=== PATIENT | female | born 1955 | race Hispanic/Latino ===

== ENCOUNTER 2016-11-25 16:01 | Emergency (ER) | payer OTHER, MEDICAID ==
[2016-11-25 16:01] VITALS: BMI 42.3
[2016-11-25 16:13] VITALS: TEMP 97.9; O2SAT 96
[2016-11-25] MEDS ORDERED: Sodium Chloride 0.9% 500 ML IV STA (16:46)
[2016-11-25] MEDS ORDERED: Morphine 2 mg/ml ISec IVP STA (16:49)
--- NOTE | 2016-11-25 16:53 | ED PDOC ---
Arrival/HPI - General Historian: Patient - History of Present Illness Time/Duration: Other (2 days) Context: Home - General Chief Complaint: Abdominal Pain Time Seen by Provider: 11/25/16 16:37 - History of Present Illness Narrative History of Present Illness (Text): 11/25/16 16:50 This 61 yo female with pmh htn, hyperlipedemia, hypothyroidism, multiple TIAs, brain aneurysm, seizures, pyelonephritis, renal stones, presents to this ED c/o urinary frequency, and flank pain x 2 days. Patient denies fever, sob, cp, n/v , hematuria, vaginal discharge, dizziness, or abnormal gait. (Yissel Kat) Past Medical History - Provider Review Nursing Documentation Reviewed: Yes - Infectious Disease Hx of Infectious Diseases: None - Tetanus Immunization Tetanus Immunization: Unknown - Cardiac Hx Hypertension: Yes Hx Pacemaker: No - Pulmonary Hx Respiratory Disorders: No - Neurological HX Cerebrovascular Accident: Yes Hx Paralysis: No Other/Comment: Brain aneurysm. Epilepsy - HEENT Hx HEENT Disorder: No - Renal Hx Renal Disorder: No - Endocrine/Metabolic Hx Endocrine Disorders: Yes Hx Hypothyroidism: Yes - Hematological/Oncological Hx Blood Transfusions: No - Integumentary Hx Dermatological Disorder: No - Musculoskeletal/Rheumatological Hx Musculoskeletal Disorders: Yes - Gastrointestinal Hx Gastrointestinal Disorders: No - Genitourinary/Gynecological Hx Genitourinary Disorders: No - Psychiatric Hx Emotional Abuse: No Hx Physical Abuse: No Hx Substance Use: No - Surgical History Hx Cholecystectomy: Yes Hx Tonsillectomy: Yes Other/Comment: "cean up left neck vein". Brain Sx for aneurysm - Anesthesia Hx Anesthesia Reactions: No Hx Malignant Hyperthermia: No - Suicidal Assessment Feels Threatened In Home Enviroment: No Family/Social History - Physician Review Nursing Documentation Reviewed: Yes Family/Social History: No Known Family HX Smoking Status: Former Smoker Hx Alcohol Use: No Hx Substance Use: No Hx Substance Use Treatment: No Allergies/Home Meds Allergies/Adverse Reactions: Allergies No Known Allergies Allergy (Verified 11/26/16 11:33) Home Medications: Home Meds Medication Instructions Recorded Confirmed Clopidogrel [Plavix] 75 mg PO DAILY 09/23/12 11/26/16 Donepezil HCl [Aricept] 10 mg PO DAILY 09/10/14 11/26/16 Simvastatin 1 tab PO HS 09/12/14 11/26/16 Escitalopram Oxalate [Escitalopram] 10 mg PO DAILY 02/13/16 11/26/16 Esomeprazole Magnesium [Nexium] 40 mg PO DAILY 02/13/16 11/26/16 Furosemide [Lasix] 40 mg PO DAILY PRN 02/13/16 11/26/16 Gabapentin [Neurontin] 300 mg PO BID 02/13/16 11/26/16 Levothyroxine [Synthroid] 100 mcg PO DAILY 02/13/16 11/26/16 Metoprolol Tartrate 50 mg PO DAILY 02/13/16 11/26/16 Phenytoin Sodium Extended 2 tab PO BID 02/13/16 11/26/16 [Phenytoin Sodium Extended] Losartan [Cozaar] 100 mg PO DAILY 11/26/16 11/26/16 Potassium Chloride [Klor-Con 10] 10 meq PO DAILY 11/27/16 11/27/16 Review of Systems - Review of Systems Constitutional: Normal. absent: Fatigue, Weight Change, Fevers Eyes: Normal ENT: Normal Respiratory: Normal Cardiovascular: Normal Gastrointestinal: Other (Flank pain). absent: Nausea, Vomiting Genitourinary Female: Frequency. absent: Dysuria, Hematuria, Urine Output Changes, Vaginal Bleeding, Vaginal Discharge Musculoskeletal: Normal. absent: Arthralgias, Back Pain, Neck Pain, Joint Swelling Skin: Normal. absent: Rash, Pruritis Neurological: Normal. absent: Headache, Dizziness, Focal Weakness, Gait Changes , Speech Changes, Facial Droop, Disequilibrium, Seizure Endocrine: Normal Hemo/Lymphatic: Normal Psychiatric: Normal Physical Exam Temperature: Afebrile Blood Pressure: Normal Pulse: Regular Respiratory Rate: Normal Appearance: Positive for: Well-Appearing, Non-Toxic, Comfortable Pain Distress: None Mental Status: Positive for: Alert and Oriented X 3 - Systems Exam Head: Present: Atraumatic, Normocephalic Pupils: Present: PERRL Extroacular Muscles: Present: EOMI Conjunctiva: Present: Normal Mouth: Present: Moist Mucous Membranes Neck: Present: Normal Range of Motion. No: Meningeal Signs Respiratory/Chest: Present: Clear to Auscultation, Good Air Exchange. No: Respiratory Distress, Accessory Muscle Use Cardiovascular: Present: Regular Rate and Rhythm, Normal S1, S2. No: Murmurs Abdomen: Present: Tenderness (Mild b/l flank tenderness), Normal Bowel Sounds. No: Distention, Peritoneal Signs, Rebound, Guarding Back: Present: Normal Inspection. No: CVA Tenderness, Midline Tenderness, Paraspinal Tenderness, Pain with Leg Raise Upper Extremity: Present: Normal Inspection, Normal ROM, NORMAL PULSES, Neurovascularly Intact, Capillary Refill < 2s. No: Cyanosis, Edema Lower Extremity: Present: Normal Inspection, NORMAL PULSES, Normal ROM, Neurovascularly Intact, Capillary Refill < 2 s. No: Edema, CALF TENDERNESS Neurological: Present: GCS=15, CN II-XII Intact, Speech Normal Skin: Present: Warm, Dry, Normal Color. No: Rashes Psychiatric: Present: Alert, Oriented x 3, Normal Insight, Normal Concentration Vital Signs Temp Pulse Resp BP Pulse Ox 11/25/16 20:00 56 L 18 130/70 96 11/25/16 18:01 59 L 18 141/79 96 11/25/16 16:12 97.9 F 56 L 17 143/89 96 Medical Decision Making Re-evaluation Time: 21:41 Reassessment Condition: Re-examined, Improved - Lab Interpretations I have reviewed the lab results: Yes Interpretation: No clinic. lab abnormalty ED Course and Treatment: I was available for consultation during PA evaluation. The chart was reviewed by me, and I agree with disposition. The documented history was done by the physician property portfolio officer. The documented physical exam was done by the physician property portfolio officer. The documented procedures were done by the physician property portfolio officer. ( Tre Jimenez) 11/25/16 21:40 I spoke with rn surgical regarding CT scan which demonstrate a moderate diverticulitis, with normal WBC. She stated patient could be discharge with po antibiotic unless patient has intractable pain. Patient does not want to stay in the hospital. Pain is control. Patient is wishing to be discharge home. Patient was explained about side effect of medication , not only but including tendinitis and tendon rupture (Yissel Kat) - Lab Interpretations Microbiology Results: Microbiology Results 11/25/16 18:27 Urine Urine Culture - Preliminary Gram Positive Cocci Lab Results: 11/25/16 18:15 11/25/16 20:40 Lab Results 11/25/16 20:40: Sodium 143, Potassium 3.9, Chloride 103, Carbon Dioxide 30, Anion Gap 14, BUN 11, Creatinine 0.7, Est GFR ( Amer) > 60, Est GFR (Non- Af Amer) > 60, Random Glucose 88, Calcium 9.4, Total Bilirubin 0.5, AST 25, ALT 35, Alkaline Phosphatase 134 H, Total Protein 7.5, Albumin 3.9, Globulin 3.6, Albumin/Globulin Ratio 1.1, Lipase 228 11/25/16 18:27: Urine Color Yellow, Urine Appearance Sl cloudy, Urine pH 6.0, Ur Specific [place] 1.025, Urine Protein Negative, Urine Glucose (UA) Negative, Urine Ketones Negative, Urine Blood Moderate H, Urine Nitrate Negative, Urine Bilirubin Negative, Urine Urobilinogen 0.2, Ur Leukocyte Esterase Negative, Urine RBC 5 - 10, Urine WBC 0 - 2, Ur Epithelial Cells 4 - 5, Urine Bacteria Few 11/25/16 18:15: WBC 7.5 D, RBC 4.13, Hgb 12.9, Hct 38.8, MCV 93.9, MCH 31.2, MCHC 33.2, RDW 13.3, Plt Count 207, MPV 10.7, Gran % 57.3, Lymph % (Auto) 33.2, [place] % (Auto) 6.2 H, Eos % (Auto) 3.0, Baso % (Auto) 0.3, Gran # 4.28, Lymph # 2.5, [place] # 0.5, Eos # 0.2, Baso # 0.02 - RAD Interpretation Narrative RAD Interpretations (Text): 11/25/16 21:08 [facility] FINDINGS: Lower thorax: Lung bases show no pulmonary infiltration or lobar pneumonia. The cardiac chambers are mildly enlarged without pericardial thickening or effusion. ABDOMEN: Liver: Unremarkable liver is normal in attenuation without lesions. Gallbladder and bile ducts: There has been a cholecystectomy. Pancreas: Unremarkable pancreas, no lesions, surrounding fluid or inflammation. No ductal dilation. Spleen: Unremarkable. No splenomegaly. Adrenals: Left adrenal gland is normal. Right adrenal circumscribed hypodense mass with density characteristics and morphology consistent with lipid rich adenoma measuring approximately 2.7 cm. Kidneys and ureters: Unremarkable. No obstructing stones. No hydronephrosis. Stomach and bowel: The stomach is normal without wall thickening or mucosal edema. There is a segment of wall thickening at the junction of the sigmoid and descending colon, consistent with moderate acute diverticulitis. There is moderate pericolonic inflammatory stranding. Diverticulosis also seen in the remainder of the large bowel. Appendix: No findings to suggest acute appendicitis. PELVIS: Bladder: Unremarkable. No stones. Reproductive: Unremarkable as visualized. ABDOMEN and PELVIS: Intraperitoneal space: Unremarkable. No free air. No significant fluid collection. Bones/joints: There is severe intervertebral disc height loss and adjacent sclerosis associated with L1-L2. The facet joints demonstrate moderate degenerative narrowing and sclerosis, most pronounced distal lumbar spine. No acute fracture. No dislocation. Soft tissues: Unremarkable. Vasculature: The aorta demonstrates moderate atherosclerotic calcification. No abdominal aortic aneurysm. Lymph nodes: Unremarkable. No enlarged lymph nodes. IMPRESSION: Acute moderate sigmoid diverticulitis without perforation, or abscess formation. Diverticulosis also seen. Appendix is not definitively visualized. No obstructive uropathy or signs of pyelonephritis. Lipid rich adenoma of the right adrenal gland is seen. Post cholecystectomy. Degenerative changes of the spine. Thank you for allowing us to participate in the care of your patient. Dictated and Authenticated by: Jovanny Hollins MD 11/25/2016 8:21 PM Eastern Time ([place] & [place] (Yissel Kat) Radiology Orders: 11/25/16 16:46 ABD & PELVIS W/O PO OR IV CONT [CT] Stat - Medication Orders Current Medication Orders: Discontinued Medications Famotidine (Pepcid) 40 mg PO STAT STA Stop: 11/25/16 21:38 Last Admin: 11/25/16 21:21 Dose: 40 mg Sodium Chloride (Sodium Chloride 0.9%) 500 mls @ 1,000 mls/hr IV .Q30M STA Stop: 11/25/16 17:15 Last Admin: 11/26/16 00:33 Dose: Levofloxacin (Levaquin) 750 mg PO STAT STA Stop: 11/25/16 21:26 Last Admin: 11/25/16 21:21 Dose: 750 mg Metronidazole (Flagyl) 500 mg PO STAT STA PRN Reason: Protocol Stop: 11/25/16 21:26 Last Admin: 11/25/16 21:21 Dose: 500 mg Morphine Sulfate (Morphine) 2 mg IM STAT STA Stop: 11/25/16 21:09 Last Admin: 11/25/16 21:21 Dose: 2 mg Ondansetron HCl (Zofran Odt) 4 mg PO STAT STA Stop: 11/25/16 21:09 Last Admin: 11/25/16 21:20 Dose: 4 mg Disposition/Present on Arrival - Present on Arrival Any Indicators Present on Arrival: No History of DVT/PE: No History of Uncontrolled Diabetes: No Urinary Catheter: No History of Decub. Ulcer: No History Surgical Site Infection Following: None - Disposition Have Diagnosis and Disposition been Completed?: Yes Disposition Time: 21:40 Patient Plan: Discharge - Disposition Diagnosis: Diverticulitis of sigmoid colon, Abdominal pain Disposition: HOME/ ROUTINE Patient Problems: Current Active Problems Problem Status Onset Diverticulitis of sigmoid colon Acute Condition: GOOD Discharge Instructions (ExitCare): Diverticulitis (ED) Additional Instructions: Call private doctor office in 1-2 days. Take medication as instructed. Return to emergency if symptoms worsen. Referrals: Janell Bell MD [Primary Care Provider] - Follow up with primary
[2016-11-25 18:06] VITALS: RESP 18
[2016-11-25 18:19] LABS: ADD MANUAL DIFF? NO
[2016-11-25 18:23] LABS: BASO # 0.02 K/mm3 (0.0-2.0); BASO % 0.3 % (0.0-3.0); EOS # 0.2 (0.0-0.7); GRAN # 4.28 (1.4-6.5); GRAN % 57.3 % (50.0-68.0); HEMATOCRIT 38.8 % (36.0-48.0); LYMPH # 2.5 (1.2-3.4); LYMPH % 33.2 % (22.0-35.0); MEAN CELL VOLUME 93.9 fL (80.0-105.0); MEAN CORPUSCULAR HEMOGLOBIN 31.2 pg (25.0-35.0); MEAN CORPUSCULAR HGB CONC 33.2 g/dl (31.0-37.0); MEAN PLATELET VOLUME 10.7 fl (7.0-11.0); MONO # 0.5 (0.1-0.6); MONO % 6.2 % (1.0-6.0); PLATELET COUNT 207 10^3/uL (120.0-450.0); RED CELL DISTRIBUTION WIDTH 13.3 % (11.5-14.5); WHITE BLOOD COUNT 7.5 10^3/ul (4.5-11.0)
[2016-11-25 18:33] LABS: URINE BILIRUBIN NEGATIVE (NEGATIVE); URINE BLOOD MODERATE (NEGATIVE); URINE GLUCOSE (UA) NEGATIVE (NEGATIVE); URINE KETONE NEGATIVE (NEGATIVE); URINE LEUKOCYTE ESTERASE NEGATIVE Leu/uL (NEGATIVE); URINE PROTEIN NEGATIVE mg/dL (<30 mg/dL); URINE UROBILINOGEN 0.2 E.U./dL (<1 E.U./dL)
[2016-11-25 18:39] LABS: URINE APPEARANCE SL CLOUDY (CLEAR); URINE COLOR YELLOW (YELLOW)
[2016-11-25 18:41] LABS: URINE BACTERIA FEW (NEG); URINE WBC 0 - 2 /hpf (0-6)
[2016-11-25] MEDS ORDERED: Morphine 2 mg/ml ISec IM STA (21:08)
[2016-11-25 21:09] LABS: ALB/GLOB RATIO 1.1 (1.1-1.8); ALKALINE PHOSPHATASE 134 U/L (38-133); ALT/SGPT 35 U/L (7-56); AST/SGOT 25 U/L (15-39); BILIRUBIN,TOTAL 0.5 mg/dL (0.2-1.3); BLOOD UREA NITROGEN 11 mg/dL (7-21); CALCIUM 9.4 mg/dL (8.4-10.5); CARBON DIOXIDE 30 mmol/L (21-33); CHLORIDE 103 mmol/L (98-107); GFR AFRICAN-AMERICAN > 60; GLUCOSE,RANDOM 88 mg/dL (70-110); LIPASE 228 U/L (23-300); POTASSIUM 3.9 mmol/L (3.6-5.0); SODIUM 143 mmol/L (132-148); TOTAL PROTEIN 7.5 g/dL (5.8-8.3)
[2016-11-25] MEDS ORDERED: levoFLOXacin 750 MG TAB PO STA (21:25)
[2016-11-26 00:32] VITALS: BP 130/70; PULSE 56
--- NOTE | 2016-11-26 07:26 | CT ---
PROCEDURE: CT Abdomen and Pelvis without intravenous contrast HISTORY: flank pain r/o pyelo COMPARISON: 11/15/2016 TECHNIQUE: CT scan of the abdomen and pelvis was performed without administration of oral or intravenous contrast. Coronal and sagittal reformatted images were obtained. Radiation dose: Total exam DLP = 1294.12 mGy-cm. This CT exam was performed using one or more of the following dose reduction techniques: Automated exposure control, adjustment of the mA and/or kV according to patient size, and/or use of iterative reconstruction technique. FINDINGS: LOWER THORAX: There is dependent atelectasis in the lungs. LIVER: The liver is enlarged. No intrahepatic biliary ductal dilatation. GALLBLADDER AND BILE DUCTS: Surgically absent. PANCREAS: The pancreas is normal in size without calcifications or ductal lesion. SPLEEN: The spleen is normal in size. ADRENALS: Both adrenal glands are normal in size. There is a 2.8 cm fat containing mass in the right adrenal gland which may represent lipid rich adenoma or myelolipoma. KIDNEYS AND URETERS: Both kidneys are normal in size without nephrolithiasis. No hydronephrosis. VASCULATURE: No aortic aneurysm. BOWEL: The small bowel loops are normal in caliber. There is left colonic diverticulosis and segmental mural thickening in the sigmoid colon with mild pericolonic inflammatory changes. No evidence of micro perforation or abscess. APPENDIX: No inflammatory changes in the right lower quadrant. PERITONEUM: No free fluid. No free air. LYMPH NODES: No enlarged lymph nodes. BLADDER: Decompressed. REPRODUCTIVE: Unremarkable. BONES: No acute fracture. There are advanced multilevel degenerative changes in the spine. OTHER FINDINGS: None. IMPRESSION: Acute sigmoid diverticulitis. No perforation or abscess. Stable lipid rich adenoma/ myelolipoma in the right adrenal gland. A preliminary report was provided by [employer].
== END 2016-11-25 21:30 | disposition home or self-care (01) ==
LOC: ED 16:01
DX: K57.32 Diverticulitis of large intestine without perforation or abscess without bleeding (principal); I10 Essential (primary) hypertension; Z86.73 Personal history of transient ischemic attack (TIA), and cerebral infarction without residual deficits; Z87.891 Personal history of nicotine dependence
CPT/HCPCS: 74176; 80053; 81001; 83690; 85025; 87086; 87181; 96372; 99283; J2270

== ENCOUNTER 2016-11-26 11:23 | Inpatient (IN) | payer OTHER, MEDICAID ==
[2016-11-26 11:23] VITALS: BMI 42.3
[2016-11-26] MEDS ORDERED: Sodium Chloride 0.9% 1,000 ML IV STA (11:59)
[2016-11-26] MEDS ORDERED: Ciprofloxacin 400mg/200ml D5W 400 MG/200 ML BAG IVPB STA (12:00)
[2016-11-26] MEDS ORDERED: metroNIDAZOLE IV 500 mg/100 ml 500 MG/100 ML BAG IVPB STA (12:00)
--- NOTE | 2016-11-26 12:08 | ED PDOC ---
Arrival/HPI - General Chief Complaint: Abdominal Pain Time Seen by Provider: 11/26/16 11:36 Historian: Patient - History of Present Illness Narrative History of Present Illness (Text): 11/26/16 12:06 61 year old female whose past medical history includes hypertension, hypercholesterolemia, hypothyroidisim, TIA, seizures, brain aneurysm, pyelonephritis, and diverticulitis presents to the emergency department with worsening abdominal pain since last night. Pain is lower but mostly on left side. It feel achy in nature and radiates to her back at times. Patient was seen here in the ED yesterday for same complaint, diagnosed with diverticulitis , but states she was not able to fill any prescriptions overnight and the pain worsened. Denies other complaints. No fever or bloody stool. PMD: Dr. Bell GI: Dr. Toth Symptom Onset: Gradual Symptom Course: Unchanged Modifying Factors (Text): None Associated Symptoms (Text): None Past Medical History - Provider Review Nursing Documentation Reviewed: Yes - Infectious Disease Hx of Infectious Diseases: None - Tetanus Immunization Tetanus Immunization: Unknown - Cardiac Hx Hypertension: Yes Hx Pacemaker: No - Pulmonary Hx Respiratory Disorders: No - Neurological HX Cerebrovascular Accident: Yes Hx Paralysis: No Other/Comment: Brain aneurysm. Epilepsy - HEENT Hx HEENT Disorder: No - Renal Hx Renal Disorder: No - Endocrine/Metabolic Hx Endocrine Disorders: Yes Hx Hypothyroidism: Yes - Hematological/Oncological Hx Blood Transfusions: No - Integumentary Hx Dermatological Disorder: No - Musculoskeletal/Rheumatological Hx Musculoskeletal Disorders: Yes - Gastrointestinal Hx Gastrointestinal Disorders: No - Genitourinary/Gynecological Hx Genitourinary Disorders: No - Psychiatric Hx Emotional Abuse: No Hx Physical Abuse: No Hx Substance Use: No - Surgical History Hx Cholecystectomy: Yes Hx Tonsillectomy: Yes Other/Comment: Brain Sx for aneurysm - Anesthesia Hx Anesthesia Reactions: No Hx Malignant Hyperthermia: No - Suicidal Assessment Feels Threatened In Home Enviroment: No Family/Social History - Physician Review Nursing Documentation Reviewed: Yes Family/Social History: Unknown Family HX Smoking Status: Former Smoker Hx Alcohol Use: No Hx Substance Use: No Hx Substance Use Treatment: No Allergies/Home Meds Allergies/Adverse Reactions: Allergies No Known Allergies Allergy (Verified 11/26/16 11:33) Home Medications: Home Meds Medication Instructions Recorded Confirmed Clopidogrel [Plavix] 75 mg PO DAILY 09/23/12 11/26/16 Donepezil HCl [Aricept] 10 mg PO DAILY 09/10/14 11/26/16 Simvastatin 1 tab PO HS 09/12/14 11/26/16 Escitalopram Oxalate [Escitalopram] 10 mg PO DAILY 02/13/16 11/26/16 Esomeprazole Magnesium [Nexium] 40 mg PO DAILY 02/13/16 11/26/16 Furosemide [Lasix] 40 mg PO DAILY PRN 02/13/16 11/26/16 Gabapentin [Neurontin] 300 mg PO BID 02/13/16 11/26/16 Levothyroxine [Synthroid] 100 mcg PO DAILY 02/13/16 11/26/16 Metoprolol Tartrate 50 mg PO DAILY 02/13/16 11/26/16 Phenytoin Sodium Extended 2 tab PO BID 02/13/16 11/26/16 [Phenytoin Sodium Extended] Losartan [Cozaar] 100 mg PO DAILY 11/26/16 11/26/16 Review of Systems - Physician Review All systems were reviewed & negative as marked: Yes - Review of Systems Eyes: absent: Vision Changes Respiratory: absent: SOB Cardiovascular: absent: Chest Pain Gastrointestinal: Abdominal Pain. absent: Hematochezia Genitourinary Female: absent: Dysuria, Hematuria Physical Exam Vital Signs Reviewed: Yes Vital Signs Temp Pulse Resp BP Pulse Ox 11/26/16 12:31 64 18 135/68 95 11/26/16 11:41 98.0 F 65 16 137/71 95 Temperature: Afebrile Blood Pressure: Normal Pulse: Regular Respiratory Rate: Normal Appearance: Positive for: Well-Appearing, Non-Toxic, Uncomfortable Pain Distress: Mild Mental Status: Positive for: Alert and Oriented X 3 - Systems Exam Head: Present: Atraumatic, Normocephalic Pupils: Present: PERRL Extroacular Muscles: Present: EOMI Conjunctiva: Present: Normal Mouth: Present: Moist Mucous Membranes Neck: Present: Normal Range of Motion Respiratory/Chest: Present: Clear to Auscultation, Good Air Exchange. No: Respiratory Distress, Accessory Muscle Use Cardiovascular: Present: Regular Rate and Rhythm, Normal S1, S2. No: Murmurs Abdomen: Present: Tenderness (Left sided tenderness ), Normal Bowel Sounds, Guarding. No: Distention, Peritoneal Signs, Rebound Back: Present: Normal Inspection Upper Extremity: Present: Normal Inspection. No: Cyanosis, Edema Lower Extremity: Present: Normal Inspection. No: Edema Neurological: Present: GCS=15, CN II-XII Intact, Speech Normal Skin: Present: Warm, Dry, Normal Color. No: Rashes Psychiatric: Present: Alert, Oriented x 3, Normal Insight, Normal Concentration Medical Decision Making ED Course and Treatment: Impression: 61 year old female whose past medical history includes hypertension , hypercholesterolemia, hypothyroidisim, TIA, seizures, brain aneurysm, pyelonephritis, and diverticulitis presents to the emergency department with worsening abdominal pain since last night. Differential Diagnosis included but are not limited to: Diverticulitis Plan: -- CT already completed yesterday which showed Diverticulitis -- Cipro, Flagyl -- Morphine -- Labs -- Admission Prior Visits: Notes and results from previous visits were reviewed. Patient last seen in the ED on 11/25/16 for abdominal pain and discharged with Cipro and Flagyl. CT Abdomen/Pelvis 11/25/2016 8:21 PM Eastern Time ([place] & [place]) Dictated and Authenticated by: Jovanny Hollins MD IMPRESSION: Acute moderate sigmoid diverticulitis without perforation, or abscess formation. Diverticulosis also seen. Appendix is not definitively visualized. No obstructive uropathy or signs of pyelonephritis. Lipid rich adenoma of the right adrenal gland is seen. Post cholecystectomy. Degenerative changes of the spine. Progress Notes: Patient was a difficult IV access but we were able to get a line on the left arm. Morphine 4mg IM was given via IM while IV line was attempted.Case was discussed with CHRISTOPHER Tobin who states to admit to Dr. Hannah. - Lab Interpretations Lab Results: 11/26/16 12:30 11/26/16 13:05 Lab Results 11/26/16 13:05: Sodium 141, Chloride 103, Potassium 4.4, Carbon Dioxide 29, Anion Gap 13, BUN 12, Creatinine 0.8, Est GFR ( Amer) > 60, Est GFR (Non- Af Amer) > 60, Random Glucose 98, Calcium 9.5, Total Bilirubin 0.4, AST 28, ALT 30, Alkaline Phosphatase 127, Total Protein 7.9, Albumin 4.1, Globulin 3.8, Albumin/Globulin Ratio 1.1, Lipase 284 11/26/16 12:30: pO2 211 H, VBG pH 7.45 H, VBG pCO2 44.0, VBG HCO3 30.6 H, VBG Total CO2 32.0 H, VBG O2 Sat (Calc) 99.5 H, VBG Base Excess 5.8 H, VBG Potassium 4.7, Sodium 139.0, Chloride 109.0 H, Glucose 114 H, Lactate 1.1, FiO2 21.0, Venous Blood Potassium 4.7 11/26/16 12:30: PT 10.9, INR 1.01, APTT 24.5 11/26/16 12:30: WBC 6.6, RBC 3.91, Hgb 12.2, Hct 36.6, MCV 93.6, MCH 31.2, MCHC 33.3, RDW 13.2, Plt Count 203, MPV 10.3, Gran % 66.6, Lymph % (Auto) 25.1, [place] % (Auto) 5.9, Eos % (Auto) 2.1, Baso % (Auto) 0.3, Gran # 4.38, Lymph # 1.7, [place] # 0.4, Eos # 0.1, Baso # 0.02 I have reviewed the lab results: Yes Interpretation: No clinic. lab abnormalty - Medication Orders Current Medication Orders: Sodium Chloride (Sodium Chloride 0.9%) 1,000 mls @ 100 mls/hr IV .Q10H STA Stop: 11/26/16 21:58 Last Admin: 11/26/16 13:32 Dose: 100 mls/hr Discontinued Medications Ciprofloxacin (Cipro 400mg/200ml Dsw) 400 mg in 200 mls @ 133.3 mls/hr IVPB STAT STA PRN Reason: Protocol Stop: 11/26/16 13:30 Last Admin: 11/26/16 13:32 Dose: 133.3 mls/hr Metronidazole (Flagyl) 500 mg in 100 mls @ 100 mls/hr IVPB STAT STA PRN Reason: Protocol Stop: 11/26/16 12:59 Morphine Sulfate (Morphine) Confirm Administered Dose 4 mg .ROUTE .STK-MED ONE Stop: 11/26/16 12:11 Last Admin: 11/26/16 12:30 Dose: 4 mg Morphine Sulfate (Morphine) 4 mg IM STAT STA Stop: 11/26/16 12:26 Last Admin: 11/26/16 12:42 Dose: - Scribe Statement The provider has reviewed the documentation as recorded by the Liza Mcduffie Provider Scribe Attestation: All medical record entries made by the Liza were at my direction and personally dictated by me. I have reviewed the chart and agree that the record accurately reflects my personal performance of the history, physical exam, medical decision making, and the department course for this patient. I have also personally directed, reviewed, and agree with the discharge instructions and disposition. Disposition/Present on Arrival - Present on Arrival Any Indicators Present on Arrival: No History of DVT/PE: No History of Uncontrolled Diabetes: No Urinary Catheter: No History of Decub. Ulcer: No History Surgical Site Infection Following: None - Disposition Have Diagnosis and Disposition been Completed?: Yes Diagnosis: Diverticulitis of sigmoid colon Disposition: HOSPITALIZED Disposition Time: 13:09 Patient Plan: Admission Condition: FAIR
[2016-11-26] MEDS ORDERED: Morphine 4 mg/ml ISec ONE (12:10)
[2016-11-26] MEDS ORDERED: Morphine 4 mg/ml ISec IM STA (12:25)
[2016-11-26 12:34] LABS: ADD MANUAL DIFF? NO
[2016-11-26 12:38] LABS: VENOUS BLOOD GAS BASE EXCESS 5.8 mmol/L (0.0-2.0); VENOUS BLOOD PH 7.45 (7.32-7.43)
[2016-11-26 12:39] LABS: BASO # 0.02 K/mm3 (0.0-2.0); BASO % 0.3 % (0.0-3.0); EOS # 0.1 (0.0-0.7); EOS % 2.1 % (1.5-5.0); GRAN # 4.38 (1.4-6.5); GRAN % 66.6 % (50.0-68.0); HEMATOCRIT 36.6 % (36.0-48.0); LYMPH # 1.7 (1.2-3.4); LYMPH % 25.1 % (22.0-35.0); MEAN CELL VOLUME 93.6 fL (80.0-105.0); MEAN CORPUSCULAR HEMOGLOBIN 31.2 pg (25.0-35.0); MEAN CORPUSCULAR HGB CONC 33.3 g/dl (31.0-37.0); MEAN PLATELET VOLUME 10.3 fl (7.0-11.0); MONO # 0.4 (0.1-0.6); MONO % 5.9 % (1.0-6.0); PLATELET COUNT 203 10^3/uL (120.0-450.0); RED CELL DISTRIBUTION WIDTH 13.2 % (11.5-14.5); WHITE BLOOD COUNT 6.6 10^3/ul (4.5-11.0)
[2016-11-26 12:49] LABS: INR 1.01 (0.93-1.08); PARTIAL THROMBOPLASTIN TIME 24.5 Seconds (23.7-30.8)
[2016-11-26 13:32] LABS: ALB/GLOB RATIO 1.1 (1.1-1.8); ALKALINE PHOSPHATASE 127 U/L (38-133); ALT/SGPT 30 U/L (7-56); AST/SGOT 28 U/L (15-39); BILIRUBIN,TOTAL 0.4 mg/dL (0.2-1.3); BLOOD UREA NITROGEN 12 mg/dL (7-21); CALCIUM 9.5 mg/dL (8.4-10.5); CARBON DIOXIDE 29 mmol/L (21-33); CHLORIDE 103 mmol/L (98-107); GFR AFRICAN-AMERICAN > 60; GLUCOSE,RANDOM 98 mg/dL (70-110); LIPASE 284 U/L (23-300); POTASSIUM 4.4 mmol/L (3.6-5.0); SODIUM 141 mmol/L (132-148); TOTAL PROTEIN 7.9 g/dL (5.8-8.3)
[2016-11-26] MEDS ORDERED: HYDROmorphone 0.5 mg/0.5 ml ISec IVP PRN (14:40)
[2016-11-26] MEDS ORDERED: Pneumococcal 23-Valent Vaccine IM ONE (14:58)
[2016-11-26 15:20] LABS: CHOLESTEROL 206 mg/dL (130-200)
[2016-11-26] MEDS: metroNIDAZOLE IV 500 mg/100 ml 500 MG/100 ML BAG IVPB SCH (22:17)
[2016-11-27] MEDS: metroNIDAZOLE IV 500 mg/100 ml 500 MG/100 ML BAG IVPB SCH ×3 (05:58→21:01)
--- NOTE | 2016-11-27 07:51 | HP ---
CHIEF COMPLAINT: Abdominal pain. HISTORY OF PRESENT ILLNESS: The patient is a 61-year-old female with past medical history of hypertension, hypercholesterolemia, hypothyroidism, TIA, seizures, brain aneurysm, pyelonephritis, diverticulitis, came to the Emergency Room Department with abdominal pain on 11/25/16. The patient was diagnosed with diverticulitis, gave her Cipro and Flagyl antibiotics and sent home. She came on 11/26/16 back to Emergency Room again with the same type of pain. According to her, she got no sleep last night with pain. We admitted the patient, started on IV antibiotics and pain medication and GI consult called. The patient was seen by me on 11/26/16 and I am doing H and P for 11/26/16. PAST MEDICAL HISTORY: As above, hypertension, CVA, epilepsy, brain aneurysm, hypothyroidism, arthritis, cholecystectomy, tonsillectomy. FAMILY HISTORY: Father and mother noncontributory. HABITS: Former smoker, now no smoking, no drugs, no ethanol. ALLERGIES: The patient is not allergic with any medications. HOME MEDICATIONS: Plavix, Aricept, simvastatin, Lasix, Neurontin, Synthroid. REVIEW OF SYSTEMS: The patient was seen and examined on the bedside on the floor on 11/26/16. Son was standing on the bedside also. According to her, pain is a little bit better after getting morphine. Otherwise, no nausea, vomiting, or diarrhea. No hematuria or hematochezia. No headache, no dizziness. PHYSICAL EXAMINATION: VITAL SIGNS: Temperature 98.0, pulse 65, respiratory rate 16, blood pressure 137/71, and pulse oximetry 95. HEENT: Head normocephalic, atraumatic. Eyes: PERRLA. Extraocular muscles are intact. Conjunctivae are clear. Nose patent. Mucous membranes moist. NECK: Supple. No carotid bruit, JVD or thyromegaly. CHEST: Bilaterally symmetrical. HEART: S1, S2 positive. LUNGS: Clear to auscultation. ABDOMEN: Soft. Tender in the left lower quadrant. EXTREMITIES: No edema, no cyanosis. NEUROLOGIC: The patient is awake, alert, moving all 4 extremities. No focal deficit. LABORATORY DATA: White blood cells 6.6, hemoglobin 12.2, hematocrit 36.6, platelets 203. Sodium 141, potassium 4.4, BUN 12, creatinine 0.8. ASSESSMENT AND PLAN: The patient is a 61-year-old lady with acute abdominal pain and diverticulitis diagnosed by CT scan on 11/25/16, showed acute sigmoid diverticulitis. No perforation or abscess. 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 Preliminary report was discussed with the Emergency Room. Length of time discussion done with Dr. Toth, gastroenterology consult called with Dr. Silva. The patient has history of hypertension, hypercholesterolemia, hypothyroidism, transient ischemic attack, seizures, brain aneurysm ,pyelonephritis, diverticulitis even in the past also, worsening abdominal pain. Gastrointestinal and deep vein thrombosis prophylaxis. Repeat labs. Antibiotics started. We will follow up. Janell Bell MD cc: [id number] TT: 11/27/2016 07:50:28 tn MTDD
[2016-11-27] MEDS: cefTRIAXone 1 gm 1 GM/100 ML BAG IVPB SCH (09:11)
[2016-11-27 12:40] LABS: HEMATOCRIT 37.6 % (36.0-48.0); MEAN CELL VOLUME 93.8 fL (80.0-105.0); MEAN CORPUSCULAR HEMOGLOBIN 31.7 pg (25.0-35.0); MEAN CORPUSCULAR HGB CONC 33.8 g/dl (31.0-37.0); MEAN PLATELET VOLUME 10.2 fl (7.0-11.0); WHITE BLOOD COUNT 6.7 10^3/ul (4.5-11.0)
[2016-11-27 12:51] LABS: BLOOD UREA NITROGEN 10 mg/dL (7-21); CALCIUM 9.4 mg/dL (8.4-10.5); CARBON DIOXIDE 29 mmol/L (21-33); CHLORIDE 104 mmol/L (98-107); GFR AFRICAN-AMERICAN > 60; GLUCOSE,RANDOM 90 mg/dL (70-110); POTASSIUM 4.1 mmol/L (3.6-5.0); SODIUM 141 mmol/L (132-148)
--- NOTE | 2016-11-27 12:52 | CP.PCM.PN ---
Subjective - Date & Time of Evaluation Date of Evaluation: 11/27/16 Time of Evaluation: 11:50 - Subjective Subjective: Patient has very poor veins,needs blood drawn for tests ordered. 2 lab techs were unable to get her blood earlier this am. Objective - Vital Signs/Intake and Output Vital Signs (last 24 hours): Temp Pulse Resp BP Pulse Ox 98.4 F 61 20 104/37 L 97 11/27/16 10:01 11/27/16 10:01 11/27/16 10:01 11/27/16 10:01 11/27/16 10:01 Intake and Output: 11/27/16 11/27/16 06:59 18:59 Intake Total 240 Balance 240 - Medications Medications: Current Medications Donepezil HCl (Aricept) 10 mg PO 2200 [facility] Last Admin: 11/26/16 22:18 Dose: 10 mg Escitalopram Oxalate (Lexapro) 10 mg PO DAILY [facility] Last Admin: 11/27/16 09:12 Dose: 10 mg Hydromorphone HCl (Dilaudid) 0.5 mg IVP Q4H PRN PRN Reason: Pain, Mild (1-3) Last Admin: 11/26/16 18:27 Dose: 0.5 mg Metronidazole (Flagyl) 500 mg in 100 mls @ 100 mls/hr IVPB Q8 [facility] PRN Reason: Protocol Last Admin: 11/27/16 05:58 Dose: 100 mls/hr Ceftriaxone Sodium (Rocephin 1 Gram Ivpb) 1 gm in 100 mls @ 100 mls/hr IVPB DAILY [facility] PRN Reason: Protocol Last Admin: 11/27/16 09:11 Dose: 100 mls/hr Losartan Potassium (Cozaar) 100 mg PO DAILY [facility] Last Admin: 11/27/16 09:24 Dose: Not Given Ondansetron HCl (Zofran Inj) 4 mg IVP Q6 PRN PRN Reason: Nausea/Vomiting Pantoprazole Sodium (Protonix Inj) 40 mg IVP DAILY [facility] Last Admin: 11/27/16 09:12 Dose: 40 mg - Labs Labs: PT 10.9 Seconds (9.9-11.8) 11/26/16 12:30 INR 1.01 (0.93-1.08) 11/26/16 12:30 APTT 24.5 Seconds (23.7-30.8) 11/26/16 12:30 - Constitutional Appears: No Acute Distress Assessment and Plan - Assessment and Plan (Free Text) Assessment: Poor venous access Plan: Multiple attempts made to draw blood.Very little was obtained,probably not enough for all tests ordered. psychology tech will make another attempt shortly.
--- NOTE | 2016-11-27 16:52 | CON ---
DATE: 11/27/2016 REFERRING PHYSICIAN: Dr. Bell. REASON FOR CONSULT: Obesity, may have sleep apnea syndrome. Short of breath with exertion, admitted with abdominal pain. HISTORY OF PRESENT ILLNESS: This is a 61-year-old obese female with past medical history significant for hypertension, hyperlipidemia, hypothyroid, history of transient ischemic attack, seizure disorde r, history of brain aneurysm, recurrent urinary tract infection, history of diverticulitis. She was seen in ER and was given Flagyl and Cipro, but with persistent pain comes back to Emergency Room. Sh e could not get sleep with severe pain. She was started on IV antibiotics and was kept in the hospit al. She admits to have loud snoring, daytime sleepy and tired, short of breath on exertion. PAST MEDICAL HISTORY: TIA, seizure disorder, brain aneurysm, hypothyroid, hyperlipidemia, hypertensi on, obesity, degenerative joint disease, history of stroke. FAMILY HISTORY: No significant cardiopulmonary disease reported. ALLERGIES: None known. SOCIAL HISTORY: She stopped smoking many years ago. Denied any alcohol use. MEDICATIONS: She is on Aricept 10 mg daily, Dilantin 100 mg twice a day, Dilaudid 0.5 mg q. 4 hours p.r.n., Flagyl 500 mg q. 8 hours, Lexapro 10 mg daily, Lipitor 40 mg daily, metoprolol tartrate 50 mg daily, gabapentin 300 mg 2 times a day, Plavix 75 mg daily, Protonix 40 mg IV daily, Rocephin 1 g daily, Synthroid 100 mcg daily, Zofran on a p.r.n. basis. REVIEW OF SYSTEMS: No headache, no rhinitis. Admits to have snoring at nighttime, daytime sleepy an d tired, short of breath with exertion. No chest pain, no nausea. Has abdominal pain. No diarrhea. No leg pain or leg swelling. PHYSICAL EXAMINATION: GENERAL: Sitting up in a chair in no acute distress. VITAL SIGNS: Temp is 98, heart rate 61, respiratory rate is 20, blood pressure 138/60, pulse ox 97% on room air. HEENT: Moist mucous membrane. Crowded airway. NECK: Supple, no JVD. Mallampati score is 4. LUNGS: Have a fair airflow with few rhonchi. HEART: S1, S2. ABDOMEN: Soft. Has some left lower quadrant tenderness on palpation. EXTREMITIES: There is not much edema. NEUROLOGIC: Awake, alert, follows simple commands. LABORATORY DATA: Shows hemoglobin 12.7, hematocrit 37.6, WBC 6.7, platelet is 210. INR 1.01, PTT is 24.5. Blood gases done shows VBG: pH 7.45, pCO2 of 44, pO2 is 211% on room air. Sodium 141, potas sium 4.1, chloride 104, bicarbonate 29, BUN 10, creatinine 0.7, glucose is 90, calcium 9.4, AST 28, A LT 30, alkaline phosphatase is 127, albumin 4.1. Cholesterol is 206 and lipase 284. TSH is 4.5. Mi crobiology: Blood cultures have been negative. IMPRESSION AND PLAN: Probably diverticulitis, had a CAT scan done through the Emergency Room, chroni c obstructive lung disease, hypertension, may have sleep apnea syndrome, hyperlipidemia, hypothyroid, history of transient ischemic attack, seizure disorder, brain aneurysm. Agree with Dr. Bell with the present management. The patient seen by GI, started on Rocephin and Flagyl. She is on clear liq uid diet and feels better. Sleep apnea precaution. Avoid sedation. Keep head elevated at 45 degree . We will need attended sleep study upon discharge. Also need PFT to assess her lung function. Gas tric prophylaxis, deep venous thrombosis prophylaxis. Thank you and will follow with you. Shelton Hannah MD cc: [id number] TT: 11/27/2016 16:51:58 Confirmation # [id number] Dictation # [id number] lilibeth
[2016-11-27] MEDS: Phenytoin 100 mg/4 ml Oral Susp UD PO SCH (17:33)
--- NOTE | 2016-11-27 18:54 | PN ---
DATE: 11/27/2016 SUBJECTIVE: The patient is examined on the bedside, having lunch. She looks like she is tolerating. tolerating lunch very well. Still having sensitivity on the right lower quadrant of the abdomen, but it is better compared to at her ER visit. Her blood workup was done today and, as per patient, 3 people tried to do blood workup on her. We will try to minimize doing blood workup on her; she is hard to stick. No nausea, vomiting, or diarrhea. No hematuria or hematochezia. No headache, no dizziness. No chest pain, no palpitation. PHYSICAL EXAMINATION: VITAL SIGNS: Temperature is 97.6, pulse 61, blood pressure 158/70, respiratory rate 20. HEENT: Head normocephalic, atraumatic. Eyes: PERRLA. Extraocular muscles intact. Conjunctivae are clear. Nose patent. Mucous membranes moist. NECK: Supple. No carotid bruit, JVD or thyromegaly. CHEST: Bilaterally symmetrical. HEART: S1, S2 positive. LUNGS: Clear to auscultation. ABDOMEN: Soft. Bowel sounds present. No organomegaly. EXTREMITIES: No edema, no cyanosis. NEUROLOGIC: The patient is awake, alert. Moving all 4 extremities. No focal deficits. MEDICATIONS: Reviewed by me. Aricept, Dilantin, Dilaudid, Flagyl, Lexapro, Lipitor, Lopressor, Lovenox, gabapentin, Plavix, Protonix, Rocephin, Synthroid and Zofran. LABORATORY DATA: White blood cells 6.7, hemoglobin 12.7, hematocrit 37.6, platelets are 210. Sodium 141, potassium 4.1, BUN 10, creatinine 0.7, hemoglobin A1c 5.8, calcium 9.4. Cholesterol 206. ASSESSMENT AND PLAN: The patient is a 61-year-old lady with hypercholesterolemia, hypothyroidism, hypertension, obesity, degenerative joint disease, transient ischemic attack, history of seizures, brain aneurysm, hypercholesterolemia, history of stroke. Is admitted with diverticulitis. CAT scan showed she has diverticulitis. History of obstructive lung disease, sleep apnea. PLAN: Continue double antibiotics, Rocephin and Flagyl. She is on clear liquid diet and feels better. Sleep apnea precautions. Avoid sedation. Gastrointestinal and deep venous thrombosis prophylaxis. Repeat labs. Will follow up. Janell Bell MD cc: [id number] TT: 11/27/2016 18:54:03 Confirmation # [id number] Dictation # [id number] mn MTDD
[2016-11-28] MEDS: Levothyroxine 100 MCG TAB PO SCH (05:37)
[2016-11-28] MEDS: metroNIDAZOLE IV 500 mg/100 ml 500 MG/100 ML BAG IVPB SCH ×3 (05:37→21:09)
[2016-11-28] MEDS: Phenytoin 100 mg/4 ml Oral Susp UD PO SCH ×2 (09:21→17:28)
[2016-11-28] MEDS: Enoxaparin 40 mg Syringe SC SCH (09:22)
[2016-11-28] MEDS: cefTRIAXone 1 gm 1 GM/100 ML BAG IVPB SCH (09:22)
--- NOTE | 2016-11-28 15:51 | PN ---
DATE: 11/28/2016 REFERRING PHYSICIAN: Dr. Bell SUBJECTIVE: She is lying in the bed, feels a little better. No headache, no rhinitis, no cough, no sputum production. Abdominal pain is better, but still has it at the midabdomen and left lower quadr ant, on clear liquid diet. No leg pain or leg swelling. OBJECTIVE: GENERAL: No acute distress. VITAL SIGNS: Temp is 98, heart rate is 64, respiratory rate is 18, blood pressure 141/50, pulse ox 9 5% on room air. HEENT: Moist mucous membranes. Crowded airway. Mallampati score is 4. NECK: Supple. No JVD. LUNGS: Have a fair airflow with few rhonchi. HEART: S1 and S2. ABDOMEN: Positive bowel sounds, midabdomen tenderness, has also left lower quadrant tenderness on pa lpation. EXTREMITIES: There is no edema. NEUROLOGIC: Awake, alert, follows simple command. MEDICATIONS: She is on Aricept 10 mg daily, Dilantin is 100 mg twice a day, Dilaudid 0.5 mg q. 4 romel rs p.r.n., Flagyl 500 mg IV q. 8 hours, Lexapro 10 mg daily, Lipitor 40 mg daily, metoprolol tartrate 50 mg daily, Lovenox 40 mg daily, Neurontin 300 mg twice a day, Pepcid 40 mg daily, Plavix 75 mg mike ly, Protonix 40 mg daily, Rocephin 1 g daily, Synthroid 100 mcg daily, Zofran p.r.n. basis. LABORATORY DATA: Reviewed. No new lab is available since yesterday. IMPRESSION AND PLAN: Diverticulitis, chronic obstructive lung disease, hypertension, may have sleep apnea syndrome, hyperlipidemia, hypothyroid, history of transient ischemic attack, seizure disorder, brain aneurysm. Pulmonary point of view, she is doing okay. Keep head at 45 degrees. Avoid sedativ es. Antibiotics. GI followup. Gastric and deep venous thrombosis prophylaxis. Fall precaution. Thank you and will follow with you. Shelton Hannah MD cc: [id number] TT: 11/28/2016 15:50:44 Confirmation # [id number] Dictation # [id number] en
[2016-11-28 16:01] VITALS: PULSE 60
--- NOTE | 2016-11-28 21:17 | PN ---
DATE: 11/28/2016 SUBJECTIVE: This patient was seen and evaluated earlier. The patient is feeling much better now. A bdominal discomfort has significantly improved. PHYSICAL EXAMINATION: VITAL SIGNS: Temperature is 98, blood pressure is 141/70, respirations 18 and O2 sat is 98%. HEENT: Atraumatic, anicteric. NECK: Supple. HEART: S1, S2 heard. LUNGS: Bilateral air entry present. There are a few rhonchi present. ABDOMEN: Soft. There is mild tenderness on deep palpation to the left lower quadrant; significant i mprovement present. EXTREMITIES: No edema. NEUROLOGIC: Alert, oriented. Moves all the extremities. LABORATORY DATA: No recent labs today. IMPRESSION: The patient is a 61-year-old patient admitted with: 1. Left lower quadrant abdominal pain, possible diverticulitis. Has been on antibiotics, clinically improving. 2. Microscopic hematuria. PLAN: 1. We will repeat the urinalysis. 2. Urologic follow up of positive hematuria. persistent, we will repeat the urinalysis. 3. We will slowly advance the diet to a full liquid diet. If tolerating to a low residue diet in a. m. Thank you very much for allowing us to participate in the care of this patient. Nicko Silva MD cc: [id number] TT: 11/28/2016 21:16:01 Confirmation # [id number] Dictation # [id number] dn
--- NOTE | 2016-11-28 22:45 | CON ---
DATE: 11/28/2016 This patient was seen and evaluated earlier. This 61-year-old patient admitted with abdominal pain. Initially she was seen in the Emergency Room 11/25/2016, and she was diagnosed with diverticulitis and sent home with antibiotics, with Cipro and Flagyl. The patient got worsening of similar pain. Did not get better. Slightly worsening. Came back to the ER. The patient was admitted for IV antibiotics. The patient has no history of any vomiting. No history of any diarrhea. The patient had a colonoscopy done in 01/2016. Was found to have only diverticulosis. Random biopsies were also taken, which did not reveal any active colitis. The patient did have upper GI endoscopy done at the same time. She was found to have a hiatus hernia and gastritis. The patient did have an endoscopic ultrasound done on 03/15/2016, and found to have a dilation of the common bile duct up to 30 mm with no stones or . Pancreas was also found to be normal. The patient started on antibiotics, ceftriaxone and Flagyl. The patient is clinically improving. The patient has been started on ceftriaxone and Flagyl. The patient has tenderness mainly in the left lower quadrant area. OTHER PAST MEDICAL HISTORY: Significant for seizure disorder, brain aneurysm, hypothyroidism, dyslipidemia, hypertension, degenerative joint disease, and CVA. FAMILY HISTORY: Is noncontributory. ALLERGIES: No known drug allergies. SOCIAL HISTORY: Ex-smoker. Denies alcohol. REVIEW OF SYSTEMS: Positive as above. Other systems reviewed. PHYSICAL EXAMINATION: GENERAL: The patient is lying on the bed, not in acute distress. There is a __ ___. HEENT: Atraumatic, anicteric. NECK: Supple. HEART: S1, S2 heard. LUNGS: Bilateral air entry present. ABDOMEN: Soft. There was tenderness present in the left lower quadrant area. There is no rebound or guarding. LABORATORY DATA: Hemoglobin is 12.7, hematocrit 37.6, WBC 6.7. AST 28, ALT 30 , alkaline phosphatase 127. TSH 4.5. IMPRESSION/PLAN: This 61-year-old patient with chronic obstructive pulmonary disease, possible obstructive sleep apnea syndrome, hypothyroidism, history of transient ischemic attack in the past, and seizure disorder, presented to the Emergency Room again with persistence of the left lower quadrant abdominal pain. CT suggestive of thickening in the sigmoid colon, inflammatory changes, and possible diverticulitis. Will start a liquid diet and continue the IV antibiotics. The patient's previous colonoscopy was reviewed. Would not recommend any further intervention at this present time. Will complete the antibiotic course and slowly advance the diet to full liquids in the a.m. Thank you very much for allowing us to participate in the care of the patient. Nicko Silva MD cc: [id number] TT: 11/28/2016 22:45:20 Confirmation # [id number] Dictation # [id number] martin CALLAWAY
--- NOTE | 2016-11-28 22:54 | CP.PCM.PN ---
Subjective - Date & Time of Evaluation Date of Evaluation: 11/28/16 Time of Evaluation: 22:53 - Subjective Subjective: # 22 angiocath was inserted in right hand dorsum. Dx:Poor venous access. Objective - Vital Signs/Intake and Output Vital Signs (last 24 hours): Temp Pulse Resp BP Pulse Ox 97.9 F 60 18 155/76 H 98 11/28/16 16:01 11/28/16 16:01 11/28/16 16:01 11/28/16 16:01 11/28/16 16:01 Intake and Output: 11/28/16 11/29/16 18:59 06:59 Intake Total 1000 780 Output Total 3 Balance 1000 777 - Medications Medications: Current Medications Atorvastatin Calcium (Lipitor) 40 mg PO DIN [facility] Last Admin: 11/28/16 17:29 Dose: 40 mg Clopidogrel Bisulfate (Plavix) 75 mg PO DAILY [facility] Last Admin: 11/28/16 09:22 Dose: 75 mg Donepezil HCl (Aricept) 10 mg PO 2200 [facility] Last Admin: 11/28/16 21:09 Dose: 10 mg Enoxaparin Sodium (Lovenox) 40 mg SC DAILY [facility] PRN Reason: Protocol Last Admin: 11/28/16 09:22 Dose: 40 mg Escitalopram Oxalate (Lexapro) 10 mg PO DAILY [facility] Last Admin: 11/28/16 09:22 Dose: 10 mg Famotidine (Pepcid) 40 mg PO HS [facility] Last Admin: 11/28/16 21:09 Dose: 40 mg Gabapentin (Neurontin) 300 mg PO BID [facility] PRN Reason: Protocol Last Admin: 11/28/16 17:28 Dose: 300 mg Metronidazole (Flagyl) 500 mg in 100 mls @ 100 mls/hr IVPB Q8 [facility] PRN Reason: Protocol Last Admin: 11/28/16 21:09 Dose: 100 mls/hr Ceftriaxone Sodium (Rocephin 1 Gram Ivpb) 1 gm in 100 mls @ 100 mls/hr IVPB DAILY [facility] PRN Reason: Protocol Last Admin: 11/28/16 09:22 Dose: 100 mls/hr Levothyroxine Sodium (Synthroid) 100 mcg PO 0600 [facility] Last Admin: 11/28/16 05:37 Dose: 100 mcg Metoprolol Tartrate (Lopressor) 50 mg PO DAILY [facility] Last Admin: 11/28/16 09:27 Dose: 50 mg Pantoprazole Sodium (Protonix Inj) 40 mg IVP DAILY [facility] Last Admin: 11/28/16 09:21 Dose: 40 mg Phenytoin (Dilantin) 100 mg PO BID [facility] Last Admin: 11/28/16 17:28 Dose: 100 mg - Labs Labs: 11/27/16 12:20 11/27/16 12:20 PT 10.9 Seconds (9.9-11.8) 11/26/16 12:30 INR 1.01 (0.93-1.08) 11/26/16 12:30 APTT 24.5 Seconds (23.7-30.8) 11/26/16 12:30
[2016-11-29 04:24] LABS: URINE BILIRUBIN NEGATIVE (NEGATIVE); URINE BLOOD SMALL (NEGATIVE); URINE GLUCOSE (UA) NEGATIVE (NEGATIVE); URINE KETONE NEGATIVE (NEGATIVE); URINE LEUKOCYTE ESTERASE NEGATIVE Leu/uL (NEGATIVE); URINE PROTEIN NEGATIVE mg/dL (<30 mg/dL); URINE UROBILINOGEN 0.2 E.U./dL (<1 E.U./dL)
[2016-11-29 04:41] LABS: URINE APPEARANCE SL CLOUDY (CLEAR); URINE COLOR YELLOW (YELLOW)
[2016-11-29 05:05] LABS: URINE EPITHELIAL CELLS 0 - 2 /hpf (0-5); URINE RBC 0 - 2 /hpf (0-2); URINE WBC 0 - 2 /hpf (0-6)
[2016-11-29] MEDS: metroNIDAZOLE IV 500 mg/100 ml 500 MG/100 ML BAG IVPB SCH (06:10)
[2016-11-29] MEDS: Levothyroxine 100 MCG TAB PO SCH (06:10)
[2016-11-29 07:55] VITALS: BP 150/81; RESP 20; TEMP 97.4; O2SAT 95
--- NOTE | 2016-11-29 08:17 | PN ---
DATE: 11/28/2016 SUBJECTIVE: The patient was seen and examined at the bedside, having her dinner that looks like full liquid dinner, tolerated very well. The pain is not increasing after eating. No nausea, vomiting, diarrhea, or hematochezia. No swelling of the leg. No headache or dizziness. PHYSICAL EXAMINATION: VITAL SIGNS: Temperature of 98, heart rate of 64, respiration rate 18, blood pressure 141/50, pulse oximetry 95% on room air. HEENT: Head normocephalic, atraumatic. Eyes: PERRLA. Extraocular muscles intact. Conjunctiva clear. Nose patent. NECK: Supple. No carotid bruit or thyromegaly. CHEST: Wall is symmetrical. HEART: S1, S2 positive. LUNGS: Clear to auscultation. ABDOMEN: Soft. Bowel sounds positive. No organomegaly. EXTREMITIES: No edema, no cyanosis. NEUROLOGIC: The patient awake, alert and moving all 4 extremities. No focal deficits. MEDICATIONS: Aricept, Dilantin, Flagyl, Lexapro, Lipitor, metoprolol, Lovenox, Neurontin, Pepcid, Protonix, Rocephin, Synthroid. LABORATORY DATA: no new labs but reviewed old labs. ASSESSMENT AND PLAN: The patient is a 61-year-old lady with abdominal pain and getting I/V antibiotics, improving. Tolerated full liquid diet very well. We are advancing diet to soft as tolerated. We will make discharge planning. Has a history of chronic obstructive lung disease, hypertension, sleep apnea syndrome, obesity, hypercholesterolemia, hypothyroidism, history of transient ischemic attack, seizure disorder, history of brain aneurysm. GI prophylaxis. Repeat labs. Continue Aricept for dementia, Dilaudid for pain, Flagyl and Rocephin for her diverticulitis, Lexapro for depression and Lipitor for hypercholesterolemia, metoprolol for blood pressure, Lovenox for DVT prophylaxis and Protonix for GI prophylaxis and will followup. Janell Bell MD cc: [id number] TT: 11/28/2016 18:46:19 Confirmation # [id number] Dictation # [id number] martin CALLAWAY
[2016-11-29] MEDS: cefTRIAXone 1 gm 1 GM/100 ML BAG IVPB SCH (09:13)
[2016-11-29] MEDS: Enoxaparin 40 mg Syringe SC SCH (09:13)
[2016-11-29] MEDS: Phenytoin 100 mg/4 ml Oral Susp UD PO SCH (09:13)
--- NOTE | 2016-11-29 12:35 | PN ---
DATE: 11/29/2016 Seen and examined at the bedside this afternoon. Denies any nausea, vomiting. Continues to have imp roved abdominal pain. Had a bowel movement, semi-loose, no bleeding. Tolerating oral intake. VITAL SIGNS: Temperature is 97.4, blood pressure is 150/81, pulse 60, respirations 20, 95 on room ai r. No new labs are noted for today. PHYSICAL EXAMINATION: HEENT: Sclerae anicteric. NECK: Supple. CARDIAC: S1, S2. LUNGS: Clear. ABDOMEN: With bowel sounds, softly obese. Some very mild tenderness to the left lower quadrant. No rebound or guarding. EXTREMITIES: No edema. NEUROLOGIC: Awake, alert, and oriented. ASSESSMENT: A 61-year-old patient who came with severe left lower quadrant abdominal pain; this is i mproving. The patient likely with diverticulitis. Has microscopic hematuria, obesity, history of ch ronic obstructive pulmonary disease and hypertension. PLAN: The patient, from GI point of view, can be discharged home. We will give prescription for add itional 5 days of Cipro and Flagyl. The patient denies any allergies. Informed to avoid any sports, exercise or any heavy activity while on Cipro, and avoid alcohol while on Flagyl. Continue low fibe r diet for at least 3 additional ____ weeks and can slowly increase her diet with fiber. She will fo llow up with Dr. Bell upon discharge and recommended patient to follow up with GI. Referred to Dr. Henderson 's group. Spoke to the nursing staff. The patient was seen and case discussed with Dr. Sybil mathew. Debi CORONADO cc: [id number] TT: 11/29/2016 12:34:33 Confirmation # [id number] Dictation # [id number] ana cristina
--- NOTE | 2016-11-29 20:03 | PN ---
DATE: 11/29/2016 REFERRING PHYSICIAN: Dr. Bell. SUBJECTIVE: The patient is lying in the bed, head at 45 degree. Night was unremarkable. Feels bett er, tolerating a full liquid diet. Abdominal pain is improved. Daytime sleepy and tired. Has loud snoring at nighttime. No leg pain or leg swelling. OBJECTIVE: GENERAL: In no acute distress. VITAL SIGNS: Temperature is 98, heart rate is 60, respiratory rate is 20, blood pressure 150/81, pul se ox 95% on room air. HEENT: Moist mucous membranes. Crowded airway. Mallampati score is 4. NECK: Supple. No JVD. LUNGS: Has a fair airflow with a few rhonchi. HEART: S1 and S2. ABDOMEN: Soft, no tenderness. EXTREMITIES: There is no edema. NEUROLOGIC: Awake, alert, follows simple commands. MEDICATIONS: She is on Aricept 10 mg daily, Dilantin 100 mg twice a day, Flagyl 500 mg q.8 hours, Le xapro 10 mg daily, Lipitor 40 mg daily, metoprolol tartrate 50 mg daily, Lovenox 40 mg subQ daily, ga bapentin 300 mg twice a day, Pepcid 40 mg at bedtime, Plavix at 5 mg daily, Protonix 40 mg daily, Lg ephin 1 g daily, Synthroid 100 mcg daily. LABORATORY DATA: Shows Microbiology: Blood cultures have been negative. IMPRESSION AND PLAN: Diverticulitis, chronic obstructive lung disease, hypertension, may have sleep apnea syndrome, hyperlipidemia, hypothyroid, history of transient ischemic attack, seizure disorder a nd brain aneurysm, being discharged home today on p.o. antibiotics. Pulmonary point of view, she meño l need a sleep study as an outpatient. Also, needs PFT as an outpatient. Thank you and will follow with you. Shelton Hannah MD cc: [id number] TT: 11/29/2016 20:02:42 Confirmation # [id number] Dictation # [id number]
--- NOTE | 2016-12-20 08:22 | DS ---
The patient was seen and examined on the bedside, looks comfortable. The patient was admitted on 11/26/2016, discharged on 11/29/2016. CHIEF COMPLAINT: Abdominal pain. HISTORY OF PRESENT ILLNESS: The patient is a 61-year-old female with past medical history of hypertension, hypercholesterolemia, hypothyroidism, TIA, seizure, brain aneurysm, pyelonephritis, diverticulitis. Came to the Emergency Room with abdominal pain, was diagnosed with diverticulitis. Cipro, Flagyl antibiotics were given. The patient came back to the Emergency Room with the same abdominal pain. We admitted the patient, did CAT scan of the abdomen, given IV antibiotics, called GI consult. The patient improved. Discharged on . PAST MEDICAL HISTORY: Hypertension, CVA, epilepsy, brain aneurysm, hypothyroidism, arthritis, cholecystectomy, tonsillectomy. FAMILY HISTORY: Father and mother noncontributory. HABITS: Former smoker, now no smoking, no drugs, no ethanol. ALLERGIES: The patient is not allergic with any medications. HOME MEDICATIONS: Reviewed by me. REVIEW OF SYSTEMS: The patient was seen and examined on the bedside, looks comfortable. No nausea, vomiting, diarrhea. No hematuria, no hematochezia. No swelling of the legs. No chest pain, no palpitation, no headache, no dizziness. PHYSICAL EXAMINATION: VITAL SIGNS: Temperature 98, heart rate 60, respiratory rate 20, blood pressure 120/80, pulse oximetry 95% on room air. HEENT: Head normocephalic, atraumatic. Eyes, PERRLA. Extraocular muscles intact. Conjunctivae clear. Nose patent. Mucous membranes moist. NECK: Supple. No carotid bruit, no JVD, no thyromegaly. CHEST: Bilaterally symmetrical. HEART: S1, S2 positive. LUNGS: Clear to auscultation. ABDOMEN: Soft. Bowel sounds positive. No organomegaly. EXTREMITIES: No edema, no cyanosis. NEUROLOGIC: The patient is awake, alert, moving all 4 extremities. No focal deficits. MEDICATIONS: Aricept, Dilantin, Flagyl, Lexapro, Lipitor, metoprolol, Lovenox, gabapentin, Pepcid, Plavix, Protonix, Synthroid. LABORATORIES: White blood cells 6.4, hemoglobin 11.7, hematocrit 37.6, platelets 210. Sodium 141, potassium 4.1, BUN 10, creatinine 0.7. Cholesterol 206. ASSESSMENT AND PLAN: The patient is a 61-year-old lady with diverticulitis, chronic obstructive lung disease, hypertension, sleep apnea syndrome, hypercholesterolemia, hypothyroidism, history of transient ischemic attack, seizures, history of brain aneurysm, clipped in [facility]. Discharged home with p.o. antibiotics. Gastrointestinal and deep venous thrombosis prophylaxis. Discussion done with the patient for losing weight. Follow up with primary care physician and client sales and service officer. Will follow up. Janell Bell MD cc: [id number] TT: 12/20/2016 08:21:39 en MTDD
== END 2016-11-29 12:54 | disposition home or self-care (01) | DRG 392 ==
LOC: ED 11:23 → ERH 13:09 → 5RNO 14:50
PROVIDERS: ADMIT Internal Medicine Pulmonary Disease; ATTEND Internal Medicine Pulmonary Disease
DX: K57.32 Diverticulitis of large intestine without perforation or abscess without bleeding (principal); I67.1 Cerebral aneurysm, nonruptured; Z68.41 Body mass index [BMI] 40.0-44.9, adult; I10 Essential (primary) hypertension; J44.9 Chronic obstructive pulmonary disease, unspecified; G40.909 Epilepsy, unspecified, not intractable, without status epilepticus; E78.00 Pure hypercholesterolemia, unspecified; E03.9 Hypothyroidism, unspecified; E78.5 Hyperlipidemia, unspecified; K29.70 Gastritis, unspecified, without bleeding; K44.9 Diaphragmatic hernia without obstruction or gangrene; E66.9 Obesity, unspecified; R31.29 Other microscopic hematuria; M19.90 Unspecified osteoarthritis, unspecified site; Z86.73 Personal history of transient ischemic attack (TIA), and cerebral infarction without residual deficits; Z79.02 Long term (current) use of antithrombotics/antiplatelets; Z87.440 Personal history of urinary (tract) infections; Z87.891 Personal history of nicotine dependence; Z90.49 Acquired absence of other specified parts of digestive tract

== ENCOUNTER 2016-12-14 17:20 | Observation (INO) | payer OTHER, MEDICAID ==
--- NOTE | 2016-12-14 18:12 | ED PDOC ---
Arrival/HPI - General Chief Complaint: Dizziness/Lightheaded Time Seen by Provider: 12/14/16 17:39 Historian: Patient - History of Present Illness Narrative History of Present Illness (Text): 12/14/16 18:09 Louise Andrew is a 61 year old female, whose past medical history includes hypertension, hypercholesterolemia, hypothyroidisim, TIA, seizures, brain aneurysm, pyelonephritis, and diverticulitis, who presents to the emergency department complaining of dizziness for 2 weeks. Patient states that she primarily feels unsteady due to dizziness and experiences associated nausea. Today, patient was found red in the face and clammy. Patient is coming from Dr. Bell's office after passing out on the stretcher while presenting symptoms. Patient denies any focal weakness or any other complaint at this time. PMD: Dr. Bell Time/Duration: < month (2 weekd) Symptom Onset: Gradual Symptom Course: Unchanged Activities at Onset: Light Modifying Factors (Text): dizziness worsens when walking Context: Home Past Medical History - Provider Review Nursing Documentation Reviewed: Yes - Infectious Disease Hx of Infectious Diseases: None - Tetanus Immunization Tetanus Immunization: Unknown - Cardiac Hx Cardiac Disorders: Yes Hx Hypertension: Yes Hx Pacemaker: No - Pulmonary Hx Respiratory Disorders: No - Neurological Hx Neurological Disorder: Yes Hx Dizziness: Yes Hx Seizures: Yes Other/Comment: dx 31 yrs ago with complex petit mal seizures last seizure 6 months ago, pt dx with brain aneurysm 8 or 9 yrs ago after c/o severe headache family took her to [place] and craniotomy performed, pt suffered 2 or 3 mini strokes during this time has some left sided weakness to arm and leg andshort term memory loss post sx(from previous traige but verified with pt and she confirmed) 12/14/16 - HEENT Hx HEENT Disorder: No - Renal Hx Renal Disorder: No - Endocrine/Metabolic Hx Endocrine Disorders: Yes Hx Hypothyroidism: Yes - Hematological/Oncological Hx Blood Transfusions: No - Integumentary Hx Dermatological Disorder: No - Musculoskeletal/Rheumatological Hx Musculoskeletal Disorders: Yes Hx Back Pain: Yes - Gastrointestinal Hx Gastrointestinal Disorders: Yes - Genitourinary/Gynecological Hx Genitourinary Disorders: No - Psychiatric Hx Emotional Abuse: No Hx Physical Abuse: No Hx Substance Use: No - Surgical History Other/Comment: Brain Sx for aneurysm - Anesthesia Hx Anesthesia Reactions: No Hx Malignant Hyperthermia: No - Suicidal Assessment Feels Threatened In Home Enviroment: No Family/Social History - Physician Review Nursing Documentation Reviewed: Yes Family/Social History: No Known Family HX Smoking Status: Former Smoker Hx Alcohol Use: No Hx Substance Use: No Hx Substance Use Treatment: No Allergies/Home Meds Allergies/Adverse Reactions: Allergies No Known Allergies Allergy (Verified 12/14/16 18:15) Home Medications: Home Meds Medication Instructions Recorded Confirmed Clopidogrel [Plavix] 75 mg PO DAILY 09/23/12 12/14/16 Donepezil HCl [Aricept] 10 mg PO DAILY 09/10/14 12/14/16 Simvastatin 1 tab PO HS 09/12/14 12/14/16 Escitalopram Oxalate [Escitalopram] 10 mg PO DAILY 02/13/16 12/14/16 Esomeprazole Magnesium [Nexium] 40 mg PO DAILY 02/13/16 12/14/16 Furosemide [Lasix] 40 mg PO DAILY PRN 02/13/16 12/14/16 Gabapentin [Neurontin] 300 mg PO BID 02/13/16 12/14/16 Levothyroxine [Synthroid] 100 mcg PO DAILY 02/13/16 12/14/16 Metoprolol Tartrate 50 mg PO DAILY 02/13/16 12/14/16 Phenytoin Sodium Extended 2 tab PO BID 02/13/16 12/14/16 [Phenytoin Sodium Extended] Losartan [Cozaar] 100 mg PO DAILY 11/26/16 12/14/16 Potassium Chloride [Klor-Con 10] 10 meq PO DAILY 11/27/16 12/14/16 Review of Systems - Physician Review All systems were reviewed & negative as marked: Yes - Review of Systems Constitutional: absent: Fevers, Night Sweats Eyes: absent: Vision Changes ENT: absent: Hearing Changes Respiratory: absent: SOB, Cough Cardiovascular: absent: Chest Pain Gastrointestinal: absent: Abdominal Pain Genitourinary Female: absent: Urine Output Changes Musculoskeletal: absent: Back Pain, Neck Pain Skin: absent: Rash, Pruritis Neurological: Dizziness Endocrine: absent: Polyuria Hemo/Lymphatic: absent: Easy Bleeding Psychiatric: absent: Depression Physical Exam Vital Signs Temp Pulse Resp BP Pulse Ox 12/14/16 20:10 70 16 163/94 H 99 12/14/16 18:14 98.6 F 75 18 159/77 H 99 Temperature: Afebrile Blood Pressure: Hypertensive Pulse: Regular Respiratory Rate: Normal Appearance: Positive for: Non-Toxic, Other (anxious appearing) Pain Distress: None Mental Status: Positive for: Alert and Oriented X 3 - Systems Exam Head: Present: Atraumatic, Normocephalic Pupils: Present: PERRL Extroacular Muscles: Present: EOMI Conjunctiva: Present: Normal Mouth: Present: Moist Mucous Membranes Pharnyx: Present: Normal. No: ERYTHEMA Neck: Present: Normal Range of Motion Respiratory/Chest: Present: Clear to Auscultation, Good Air Exchange. No: Respiratory Distress, Accessory Muscle Use Cardiovascular: Present: Regular Rate and Rhythm, Normal S1, S2. No: Murmurs Abdomen: Present: Normal Bowel Sounds. No: Tenderness, Distention, Peritoneal Signs Back: Present: Normal Inspection Upper Extremity: Present: Normal Inspection. No: Cyanosis, Edema Lower Extremity: Present: Normal Inspection. No: Edema Neurological: Present: GCS=15, CN II-XII Intact, Speech Normal, Normal Cerebellar Funct (L side dysmetria as noted), Other (mild dysmetria L side). No : Motor Func Grossly Intact (R leg as noted) Skin: Present: Warm, Dry, Normal Color. No: Rashes Psychiatric: Present: Alert, Oriented x 3, Normal Insight, Normal Concentration Medical Decision Making ED Course and Treatment: 12/14/16 17:57 Impression: 61 year old female complaining of dizziness for two weeks. Differential Diagnosis include but are not limited to: TIA vs CVA vs electrolyte abnormalityPatien Plan: -- EKG -- Chest X-ray -- Head CT w/o contrast -- Type and Screen -- Labs -- Reassess and disposition Prior Visits: Notes and results from previous visits were reviewed. Patient last seen in ED on 11/26/16 for worsening abdominal pain since the night before arrival. Patient was admitted to hospitalist care for further evaluation. Progress Notes: 12/14/16 18:05 Patient presented with dizziness x 2 weeks with no focal weakness on initial presentation. On exam, she began to say her right leg feels weak and heavy at 18:00. Code Stroke called 18:05 12/14/16 18:[address] w/o contrast: Creator : Rachel Garza MD FINDINGS: HEMORRHAGE:No intracranial hemorrhage. BRAIN: Diffuse atrophy with prominence of the ventricles and sulci noted. No mass effect or edema. Chronic nonspecific white matter changes. Small right parietal lobe encephalomalacia, mid parasagittal region similar to prior study. VENTRICLES:No hydrocephalus. CALVARIUM:Postsurgical changes of the right calvarium PARANASAL SINUSES:Unremarkable as visualized. No significant inflammatory changes. MASTOID AIR CELLS:Unremarkable as visualized. No inflammatory changes. OTHER FINDINGS:None. IMPRESSION: Mild atrophy. Chronic changes similar prior study. Please note that MRI with diffusion imaging is more sensitive in the detection of acute ischemic event. Findings discussed with Dr. Ruano on 12/14/16 at 628 pm 12/14/16 21:26 Patient with noted history with NIHSS of 2, so not a tpa candidate. Case discussed with Dr. Rothman. Patient will need observation in the hospital for syncope and possible TIA - discussed with Dr. Bell. - Lab Interpretations Lab Results: 12/14/16 19:30 12/14/16 19:30 Lab Results 12/14/16 19:57: Blood Type Confirm B POSITIVE 12/14/16 19:30: Blood Type B POSITIVE, Antibody Screen Negative, BBK History Checked No verified bt 12/14/16 19:30: Sodium 139, Potassium 4.3, Chloride 101, Carbon Dioxide 31, Anion Gap 11, BUN 15, Creatinine 0.7, Est GFR ( Amer) > 60, Est GFR (Non- Af Amer) > 60, Random Glucose 92, Calcium 9.6, Magnesium 1.9, Total Bilirubin 0.5, AST 60 H, ALT 53, Alkaline Phosphatase 131, Lactate Dehydrogenase 899 H, Total Creatine Kinase 130, Troponin I 0.02 D, Total Protein 7.8, Albumin 4.3, Globulin 3.5, Albumin/Globulin Ratio 1.2, Triglycerides 207 H, Cholesterol 214 H , LDL Cholesterol Direct 129, HDL Cholesterol 61 H, Lipase 423 H 12/14/16 19:30: PT 10.1, INR 0.94, APTT 23.5 L 12/14/16 19:30: WBC 8.1 D, RBC 4.04, Hgb 12.6, Hct 37.4, MCV 92.6, MCH 31.2, MCHC 33.7, RDW 13.1, Plt Count 248, MPV 9.9, Gran % 59.0, Lymph % (Auto) 32.5, [place] % (Auto) 5.3, Eos % (Auto) 3.0, Baso % (Auto) 0.2, Gran # 4.79, Lymph # 2.6 , [place] # 0.4, Eos # 0.2, Baso # 0.02 I have reviewed the lab results: Yes - RAD Interpretation Radiology Orders: 12/14/16 18:10 HEAD W/O (CODE STROKE) [CT] Stat CHEST ONE VIEW [RAD] Stat - EKG Interpretation EKG Interpretation (Text): 12/14/16 21:29 NSR @ 70; normal intervals; normal axis; no ST/T changes - Medication Orders Current Medication Orders: Discontinued Medications Aspirin (Aspirin Chewable) 324 mg PO STAT STA Stop: 12/14/16 20:05 Last Admin: 12/14/16 20:13 Dose: 324 mg NIHSS Scale ([place]) Time Performed: 18:00 - How Severe is the Stoke Baseline Level of Consciousness: 0=Alert LOC to Questions: 0=Both comments correct LOC to commands: 0=Obeys both correctly Best Gaze: 0=Normal Visual: 0=No visual loss Facial: 0=Normal Motor Arm - Left: 0=No drift Motor Arm - Right: 0=No drift Motor Leg - Left: 0=No drift Motor Leg - Right: 1=Drift before 5 sec Limb Ataxia: 1=Present Upper or Lower Sensory: 0=Normal Best Language: 0=No aphasia Dysarthia: 0=Normal articulation Extinction & Inattention (Neglect): 0=Normal, no object Score: 2 Risk Level: Minor Stroke Risk - Scribe Statement The provider has reviewed the documentation as recorded by the Ebonyibawais Waller Provider Scribe Attestation: All medical record entries made by the Scribe were at my direction and personally dictated by me. I have reviewed the chart and agree that the record accurately reflects my personal performance of the history, physical exam, medical decision making, and the department course for this patient. I have also personally directed, reviewed, and agree with the discharge instructions and disposition. Disposition/Present on Arrival - Present on Arrival Any Indicators Present on Arrival: No History of DVT/PE: No History of Uncontrolled Diabetes: No Urinary Catheter: No History of Decub. Ulcer: No History Surgical Site Infection Following: None - Disposition Have Diagnosis and Disposition been Completed?: Yes Diagnosis: Dizziness, Syncope, Right leg weakness Disposition: HOSPITALIZED Disposition Time: 20:00 Patient Plan: Observation Condition: FAIR
[2016-12-14 18:14] VITALS: BMI 43.7
--- NOTE | 2016-12-14 18:34 | CT ---
PROCEDURE: CT HEAD WITHOUT CONTRAST. HISTORY: Code Stroke COMPARISON: Noncontrast head CT performed 04/08/14 TECHNIQUE: Axial computed tomography images were obtained through the head/brain without intravenous contrast. Radiation dose: Total exam DLP = 835.28 mGy-cm. This CT exam was performed using one or more of the following dose reduction techniques: Automated exposure control, adjustment of the mA and/or kV according to patient size, and/or use of iterative reconstruction technique. FINDINGS: HEMORRHAGE: No intracranial hemorrhage. BRAIN: Diffuse atrophy with prominence of the ventricles and sulci noted. No mass effect or edema. Chronic nonspecific white matter changes. Small right parietal lobe encephalomalacia, mid parasagittal region similar to prior study. VENTRICLES: No hydrocephalus. CALVARIUM: Postsurgical changes of the right calvarium PARANASAL SINUSES: Unremarkable as visualized. No significant inflammatory changes. MASTOID AIR CELLS: Unremarkable as visualized. No inflammatory changes. OTHER FINDINGS: None. IMPRESSION: Mild atrophy. Chronic changes similar prior study. Please note that MRI with diffusion imaging is more sensitive in the detection of acute ischemic event. Findings discussed with Dr. Ruano on 12/14/16 at 628 pm
[2016-12-14 19:37] LABS: ADD MANUAL DIFF? NO
[2016-12-14 19:50] LABS: ALB/GLOB RATIO 1.2 (1.1-1.8); ALKALINE PHOSPHATASE 131 U/L (38-133); ALT/SGPT 53 U/L (7-56); AST/SGOT 60 U/L (15-39); BILIRUBIN,TOTAL 0.5 mg/dL (0.2-1.3); BLOOD UREA NITROGEN 15 mg/dL (7-21); CALCIUM 9.6 mg/dL (8.4-10.5); CARBON DIOXIDE 31 mmol/L (21-33); CHLORIDE 101 mmol/L (98-107); CHOLESTEROL 214 mg/dL (130-200); GFR AFRICAN-AMERICAN > 60; GLUCOSE,RANDOM 92 mg/dL (70-110); LIPASE 423 U/L (23-300); MAGNESIUM 1.9 mg/dL (1.7-2.2); POTASSIUM 4.3 mmol/L (3.6-5.0); SODIUM 139 mmol/L (132-148); TOTAL PROTEIN 7.8 g/dL (5.8-8.3)
[2016-12-14 19:55] LABS: INR 0.94 (0.93-1.08); PARTIAL THROMBOPLASTIN TIME 23.5 Seconds (23.7-30.8)
[2016-12-14 20:00] LABS: TROPONIN I 0.02 ng/mL
[2016-12-14 20:07] LABS: BASO # 0.02 K/mm3 (0.0-2.0); BASO % 0.2 % (0.0-3.0); EOS # 0.2 (0.0-0.7); GRAN # 4.79 (1.4-6.5); HEMATOCRIT 37.4 % (36.0-48.0); LYMPH # 2.6 (1.2-3.4); LYMPH % 32.5 % (22.0-35.0); MEAN CELL VOLUME 92.6 fL (80.0-105.0); MEAN CORPUSCULAR HEMOGLOBIN 31.2 pg (25.0-35.0); MEAN CORPUSCULAR HGB CONC 33.7 g/dl (31.0-37.0); MEAN PLATELET VOLUME 9.9 fl (7.0-11.0); MONO # 0.4 (0.1-0.6); MONO % 5.3 % (1.0-6.0); PLATELET COUNT 248 10^3/uL (120.0-450.0); RED CELL DISTRIBUTION WIDTH 13.1 % (11.5-14.5); WHITE BLOOD COUNT 8.1 10^3/ul (4.5-11.0)
[2016-12-15] MEDS: Pantoprazole 40 mg EC Tab PO SCH (08:14)
--- NOTE | 2016-12-15 09:32 | RAD ---
PROCEDURE: CHEST RADIOGRAPH, 1 VIEW HISTORY: dizzy COMPARISON: 04/08/2014 FINDINGS: LUNGS: Clear. PLEURA: No pneumothorax or pleural fluid seen. CARDIOVASCULAR: Normal. OSSEOUS STRUCTURES: No significant abnormalities. VISUALIZED UPPER ABDOMEN: Normal. OTHER FINDINGS: None. IMPRESSION: No active disease.
[2016-12-15] MEDS: Levothyroxine 100 MCG TAB PO SCH (09:33)
[2016-12-15] MEDS: Potassium Chloride 10 mEq ER Tab PO SCH (09:33)
--- NOTE | 2016-12-15 10:05 | CARD ---
APPROVED REPORT EKG Measurement Heart [id number] CT [id number] <Conclusion> Normal sinus rhythm Minimal voltage criteria for LVH, may be normal variant ST abnormality, possible digitalis effect Abnormal ECG
--- NOTE | 2016-12-15 20:46 | CON ---
DATE: 12/15/2016 HISTORY OF PRESENT ILLNESS: This is a 61-year-old white female with past medical history of hyperten justice, hypothyroidism, seizure, history of TIA, came to the Emergency Room with the complaint of dizzi ness for 2 weeks and also experiences right-sided mild weakness and feels heavy on the right side. C alled to evaluate the patient. PAST MEDICAL HISTORY: As above. ALLERGIES: No known drug allergy. HOME MEDICATIONS: Plavix, Aricept, simvastatin, Nexium, gabapentin, Synthroid, and Dilantin. PHYSICAL EXAMINATION: VITAL SIGNS: Blood pressure 159/77. HEENT: Normocephalic, atraumatic. NECK: Supple. NEUROLOGIC: Awake, oriented to self and place. Cranial nerves II through XII were tested. Pupils r eactive. Spontaneous movement of all the extremities noted. Deep tendon reflexes 1+, feels heavines s on the right side of the body. Code stroke was called. Workup in progress. CAT scan of the head was negative. Continue present management. We will follow up. Navneet Rothman MD cc: [id number] TT: 12/15/2016 20:45:39 Confirmation # [id number] Dictation # [id number] lilibeth
--- NOTE | 2016-12-16 06:32 | HP ---
CHIEF COMPLAINT: Dizziness, lightheadedness, feeling of passing out. HISTORY OF PRESENT ILLNESS: The patient is a 61-year-old, my private patient, with past medical history of hypertension, hypercholesterolemia, seizures, hypothyroidism, TIA, brain aneurysm, pyelonephritis and diverticulitis. She was sent to the Emergency Room from my office complaining of dizziness for 2 weeks. The patient stated that she primarily feels unsteady gait due to dizziness and associated nausea today. The patient was found red in the face and clammy and almost passing out. The patient denies any facial weakness or any other fever, chills, nausea, vomiting, or diarrhea. PAST MEDICAL HISTORY: Hypertension, dizziness, seizures. History of seizure is like 32 years ago, started as petit mal seizures, last seizure was 6 months ago. History of hypothyroidism, back pain. FAMILY HISTORY: Father and mother noncontributory. HABITS: No smoking, no drugs, no ethanol. ALLERGIES: The patient is not allergic with any medications. HOME MEDICATIONS: Plavix, Aricept, simvastatin, Nexium, Lasix, Neurontin, Synthroid, metoprolol, phenytoin, clonidine. REVIEW OF SYSTEMS: The patient was seen and examined on the bedside. Looks comfortable. Absent hearing changes. No shortness of breath, coughing. No chest pain, no abdominal pain. No urine output change. No back pain. No rash. Still feeling dizzy, clammy. Sometimes feelings of passing out. Whole room is spinning. Absent polyuria. Absent easy bruising and easy depression. PHYSICAL EXAMINATION: VITAL SIGNS: Temperature 98.6, pulse 75, respiratory rate 18, blood pressure 115/77, pulse oximetry 99. HEENT: Head normocephalic, atraumatic. Eyes: PERRLA. Extraocular muscles intact. Conjunctivae clear. Nose patent. Mucous membranes moist. NECK: Supple. No carotid bruit, JVD or thyromegaly. CHEST: Bilaterally symmetrical. HEART: S1, S2 positive. LUNGS: Clear to auscultation. ABDOMEN: Soft. Bowel sounds present. No organomegaly. EXTREMITIES: No edema, no cyanosis. NEUROLOGIC: The patient is awake, alert, moving all 4 extremities. No focal deficits. HOME MEDICATIONS: Reviewed by me. LABORATORY DATA: White blood cells 8.1, hemoglobin 12.6, hematocrit 37.4, platelets 248. Sodium 136, potassium 4.3, BUN 15, creatinine 0.7, glucose 92. ASSESSMENT AND PLAN: The patient is a 61-year-old female came with the feeling of passing out, lightheadedness, syncope, right-sided a little bit weakness, hypothyroidism, history of seizure, history of brain aneurysm, obesity, chronic obstructive pulmonary disease, hypertension, history of transient ischemic attack. In Emergency Room, code stroke was called. Workup in the process. CAT scan of the head was negative. Continue present management. The patient is awake and oriented x 3. CAT scan of the head done. According to that, mildly atrophic, chronic changes similar to prior study. I reviewed Dr. Rothman' s notes. Chest x-ray is reviewed by me. Gastrointestinal and deep venous thrombosis prophylaxis. Repeat labs. We will follow up. Janell Bell MD cc: [id number] TT: 12/16/2016 06:32:29 marcial MTDYesenia
--- NOTE | 2016-12-16 08:08 | CON ---
DATE: 12/15/2016 REFERRING PHYSICIAN: Dr. Bell. REASON FOR CONSULT: Status post syncopal type episode, stroke, may have sleep apnea syndrome. HISTORY OF PRESENT ILLNESS: This is a 61-year-old female who was seen at Dr. Bell's office, had be en having a dizzy spell while in the office doing the orthostatic blood pressure. She had an episode of syncope, does not remember the episode, it could be TIA, lost consciousness and was sent to Emerg ency Room. Has a history of hypertension, hyperlipidemia, hypothyroid, TIA in the past, seizure diso rder, history of brain aneurysm in the past, diverticulosis recently treated with antibiotics, also s uspected sleep apnea syndrome. Presently, sitting up at the side of the bed, having lunch, feels bet ter. No cough, no sputum production. Admitted to have loud snoring, no nausea, no vomiting and no d iarrhea. No leg pain or leg swelling. PAST MEDICAL HISTORY: Recurrent TIA, seizure disorder, brain aneurysm, hypothyroid, hyperlipidemia, hypertension, degenerative joint disease, history of stroke. FAMILY HISTORY: No significant cardiopulmonary disease reported. ALLERGIES: None known. SOCIAL HISTORY: She stopped smoking many years ago. Denied any alcohol use. MEDICATIONS: She is on Aricept 10 mg daily, Cozaar 100 mg daily, Dilantin 200 mg twice a day, potass ium 10 mEq daily, Lasix 40 mg daily, Lexapro 10 mg daily, Lipitor 20 mg at bedtime, metoprolol tartra te 50 mg daily, Neurontin 300 mg twice a day, Plavix 75 mg daily, Protonix 40 mg daily, Synthroid 100 mcg daily. REVIEW OF SYSTEMS: At present, there is no headache, no rhinitis, no nausea, no vomiting, no diarrhe a, no leg pain or leg swelling. Admitted to loud snoring, daytime sleepy and tired. PHYSICAL EXAMINATION: VITAL SIGNS: Afebrile, heart rate 63, respiratory rate is 20, blood pressure 129/50, pulse ox 95% on room air. HEENT: Moist mucous membranes. Crowded airway. Mallampati score is 4. NECK: Supple. No JVD. LUNGS: Have fair airflow with few rhonchi. HEART: S1, S2. ABDOMEN: Soft, nontender. No organomegaly. EXTREMITIES: There is no edema. NEUROLOGIC: Awake, alert, follows simple commands. LABORATORY DATA: Shows hemoglobin at 12.6, hematocrit 37.4, WBC 8.1, platelet is 248. INR is 0.94, PTT is 24. Blood gases from the last admission were done, which shows pCO2 of 44, that was VBG. CAT scan of the head did not show any new changes. Chest x-ray does not show any infiltrate. IMPRESSION AND PLAN: Recurrent transient ischemic attacks, history of diverticulosis, chronic obstru ctive lung disease, hypertension, may have sleep apnea syndrome, hyperlipidemia, hypothyroid, seizure disorder, history of brain aneurysm. I agree with Dr. Bell with the present management. Neurolog y consult has been called. She does have a little subtle weakness in the right lower extremity. ___ __ is for sleep apnea syndrome. I will place her on CPAP 8 cm with 30% oxygen while sleeping tonight and as outpatient try to get a sleep study and PFT as an outpatient. Will get echocardiogram to rul e out thrombotic event. Further workup as per neurology, will get orthostatic hypotension. Th ank you and will follow with you. Shelton Hannah MD cc: [id number] TT: 12/15/2016 19:38:36 Confirmation # [id number] Dictation # [id number] mn
[2016-12-16] MEDS: Pantoprazole 40 mg EC Tab PO SCH (08:36)
[2016-12-16] MEDS: Potassium Chloride 10 mEq ER Tab PO SCH (09:48)
[2016-12-16] MEDS: Levothyroxine 100 MCG TAB PO SCH (09:49)
--- NOTE | 2016-12-16 20:04 | CARD ---
APPROVED REPORT EXAM: Two-dimensional and M-mode echocardiogram with Doppler and color Doppler. 2D DIMENSIONS Left Atrium (2D)4.9 (1.6-4.0cm)IVSd1.1 (0.7-1.1cm) LVDd4.2 (3.9-5.9cm)PWd1.2 (0.7-1.1cm) LVDs2.9 (2.5-4.0cm)FS (%) 32.2 % LVEF (%)60.9 (>50%) M-Mode DIMENSIONS Aortic Root3.10 (2.2-3.7cm)Aortic Cusp Exc.1.80 (1.5-2.0cm) Aortic Valve AoV Peak Uosbfeip373.0cm/sAoV VTI46.7cmAO Peak GR.21mmHg LVOT Peak Fhxjpjmm984.0cm/sLVOT VTI42.30cmAO Mean GR.11mmHg Mitral Valve MV E Zhrosmyq26.8cm/sMV A Olewovpy120.0cm/sE/A ratio0.7 TDI Lateral E' Peak V9.94cm/sMedial E' Peak V7.41cm/sE/Lateral E'8.9 E/Medial E'12.0 Pulmonary Valve PV Peak Qjerwjcq51.4cm/sPV Peak Grad.3mmHg Tricuspid Valve TR Peak Wcnnlsls191ke/sRAP GDVUVWKC16gmCpYA Peak Gr.32mmHg [id number] LEFT VENTRICLE The left ventricle is normal size. There is borderline concentric left ventricular hypertrophy. The left ventricular function is normal.EF-55-60% There is normal LV segmental wall motion. Transmitral Doppler flow pattern is Grade III-reversible restrictive diastolic dysfunction. No left ventricle thrombus noted on this study. There is no ventricular septal defect visualized. There is no left ventricular aneurysm. There is no mass noted in the left ventricle. RIGHT VENTRICLE The right ventricle is normal size. There is normal right ventricular wall thickness. The right ventricular systolic function is normal. ATRIA The left atrium is mildly dilated. The right atrium size is normal. The interatrial septum is intact with no evidence for an atrial septal defect. AORTIC VALVE The aortic valve is thickened but opens well. There is mild aortic regurgitation. There is no aortic valvular stenosis. There is no aortic valvular vegetation. MITRAL VALVE The mitral valve is thickened but opens well. Mitral regurgitation is trace to mild. There is no mitral valve stenosis. There is no evidence of mitral valve prolapse. Chordal JYOTI noted. TRICUSPID VALVE The tricuspid valve leaflets are thickened , but open well. There is mild tricuspid regurgitation.RVSP-42 mmof hg There is mild pulmonary hypertension. There is no tricuspid valve stenosis. There is no tricuspid valve prolapse or vegetation. PULMONIC VALVE The pulmonic valve is mildly thickened. There is mild pulmonic valvular regurgitation. There is no pulmonic valvular stenosis. GREAT VESSELS The aortic root is normal in size. The ascending aorta is normal in size. The pulmonary artery is normal. The IVC is normal in size and collapses >50% with inspiration. PERICARDIAL EFFUSION There is no pleural effusion. There is no pericardial effusion. <Conclusion> The left ventricle is normal size. There is borderline concentric left ventricular hypertrophy. The left ventricular function is normal.EF-55-60% There is mild aortic regurgitation. Mitral regurgitation is trace to mild. Chordal JYOTI noted. There is mild tricuspid regurgitation.RVSP-42 mmof hg There is mild pulmonary hypertension. There is mild pulmonic valvular regurgitation. There is no pericardial effusion. The IVC is normal in size and collapses >50% with inspiration.
--- NOTE | 2016-12-16 20:21 | PN ---
DATE: 12/16/2016 REFERRING PHYSICIAN: Dr. Bell. SUBJECTIVE: She is lying in the bed. Overall, feels better. Tolerated BiPAP well. Still has some lightheadedness but no headache, no nausea, no vomiting, no diarrhea. Does have right lower extremit y mildly weak. OBJECTIVE: GENERAL: No acute distress. VITAL SIGNS: Temp is 98, heart rate 63, respiratory rate is 20, blood pressure 146/79, pulse ox 95% on room air. HEENT: Moist mucous membrane. Crowded airway. Mallampati score is 4. NECK: Supple. No JVD. LUNGS: Has a fair airflow with few rhonchi. HEART: S1, S2. ABDOMEN: Soft, nontender. No organomegaly. EXTREMITIES: There is no edema. NEUROLOGIC: Awake, alert, follows simple commands. MEDICATIONS: She is on Aricept 10 mg daily, Cozaar 10 mg daily, Dilantin 200 mg twice a day, potassi um 10 mEq daily, Lasix 40 mg p.r.n. basis, Lexapro 10 mg daily, Lipitor 20 mg daily, metoprolol tartr ate 50 mg daily, Neurontin 300 mg twice a day, Plavix 75 mg daily, Protonix 40 mg daily, Synthroid 10 0 mcg daily. LABORATORY DATA: Reviewed. Blood sugar is 95. Had echocardiogram done, report is still pending. IMPRESSION AND PLAN: Recurrent transient ischemic attacks, probably had a cerebrovascular accident t his time. Still has right lower extremity some weakness, still having dizzy spells, history of diver ticulosis, chronic obstructive lung disease, hypertension, may have sleep apnea syndrome, hyperlipide bhavna, hypothyroidism, seizure disorder, history of brain aneurysm. Pulmonary point of view, she is do ing okay. Encouraged her to use BiPAP. Keep head elevated at 45 degrees, avoid sedation. Gastric p rophylaxis. Deep venous thrombosis prophylaxis. May need to repeat CAT scan or MRI. Start physical therapy. Fall precautions. Thank you and will follow with you. Shelton Hannah MD cc: [id number] TT: 12/16/2016 20:20:54 Confirmation # [id number] Dictation # [id number] rn
--- NOTE | 2016-12-17 06:34 | PN ---
DATE: 12/16/2016 SUBJECTIVE: The patient was seen and examined on the bedside, sitting on the chair, feeling comfortable. Dizziness is getting better, but still there. Tolerated BiPAP well. Still has some lightheadedness, but no nausea, vomiting, fever. Does have right lower extremity mildly weak. Neurologist is on the case. PHYSICAL EXAMINATION: VITAL SIGNS: Temperature 98, heart rate 52, respiratory rate 20, blood pressure 142/79, and pulse oximetry 95% on room air. HEENT: Head normocephalic, atraumatic. Eyes: PERRLA. Extraocular muscles intact. Conjunctivae clear. Nose patent. Mucous membranes moist. NECK: Supple. No carotid bruit, JVD or thyromegaly. CHEST: Bilaterally symmetrical. HEART: S1, S2 positive. LUNGS: Clear to auscultation. ABDOMEN: Soft. Bowel sounds present. No organomegaly. EXTREMITIES: No edema, no cyanosis. NEUROLOGIC: The patient is awake, alert, follows simple commands. MEDICATIONS: Aricept, Cozaar, Dilaudid, potassium, Lasix, Lovenox, Lipitor, metoprolol, Neurontin, Plavix, Protonix, Synthroid. LABORATORY DATA: We do not have recent labs today, but I reviewed old labs. Blood sugar 95. ASSESSMENT AND PLAN: The patient is a 61-year-old lady with history of multiple medical problems, came with intractable headache and nauseous, dizziness, lightheadedness. The patient has history of transient ischemic attack, probably has cerebrovascular accident, history of brain aneurysm, vasculitis as per daughter and patient. Still has lower extremity some weakness. Still feeling dizziness, lightheadedness. Diverticulosis, chronic obstructive lung disease, hypertension, sleep apnea syndrome, hypothyroidism, seizure disorder, history of brain aneurysm. Encourage her to use BiPAP. Keep her head elevated to 45 degrees, avoid sedation. Deep vein thrombosis prophylaxis. Need to repeat CT scan or MRI as per Dr. Hannah. Start physical therapy. As per daughter's concern, mother needs cellulitis workup. Gastrointestinal and deep venous thrombosis prophylaxis. We will follow up. Janell Bell MD cc: [id number] TT: 12/17/2016 06:34:10 Confirmation # [id number] Dictation # [id number] tn MTDD
[2016-12-17] MEDS: Potassium Chloride 10 mEq ER Tab PO SCH (09:12)
[2016-12-17] MEDS: Pantoprazole 40 mg EC Tab PO SCH (09:16)
[2016-12-17] MEDS: Levothyroxine 100 MCG TAB PO SCH (09:16)
[2016-12-17] MEDS ORDERED: Gadodiamide 287 MG/ML VIAL (20ML) IV ONE (15:08)
--- NOTE | 2016-12-17 16:04 | MRI ---
PROCEDURE: MRI BRAIN WITH AND WITHOUT CONTRAST HISTORY: vasculitis COMPARISON: None. TECHNIQUE: Multiplanar, multisequence MR images of the brain were obtained with and without intravenous contrast enhancement. 15 cc of Omniscan FINDINGS: HEMORRHAGE: None DWI: No evidence of an acute or early subacute infarction. BRAIN PARENCHYMA: No mass,mass effect or edema. There is focal atrophy and encephalomalacia in the medial aspect of the right parietal lobe. There is also a small focal area of encephalomalacia and atrophy in the right frontal lobe. ENHANCEMENT: No abnormal intracranial enhancement. VENTRICLES: Unremarkable. No hydrocephalus. CRANIUM: Unremarkable. ORBITS: Grossly unremarkable. PARANASAL SINUSES/MASTOIDS: Clear VASCULAR SYSTEM: Skull base flow voids intact. OTHER FINDINGS: None . IMPRESSION: Small focal areas of atrophy and encephalomalacia in the right medial parietal lobe and right frontal lobe. No acute findings
--- NOTE | 2016-12-17 18:54 | PN ---
DATE: 12/17/2016 CHIEF COMPLAINT: Follow up for dizziness. SUBJECTIVE: The patient seen and examined at bedside. She just still has difficulty in lifting up h er right lower leg, but is now more painful when she lifts it. She underwent an MRI of the bra in today which showed small focal areas of atrophy, encephalomalacia in the right medial parietal lob e as well as right frontal lobe which does correspond to her having history of seizures. Her Dilanti n is subtherapeutic, even though she does mention that she takes it. I agree that for her to discont inue the Dilantin and place on Lamictal 25 mg p.o. b.i.d. for seizure prophylaxis. She does have sle ep apnea syndrome, which could aid in her dizziness. Nothing central in the brain to assess for any dizziness, but we will order an MRI of the C-spine since some neck tightness, as well as an MRI of th e lumbar spine with an evaluation of her right lower extremity weakness, as well as chronic back pain . Otherwise, no acute events overnight. No orthostatic changes. She has elevated BUN and creatinin e which has been her baseline in the past. Her vital signs are stable today. PAST MEDICAL HISTORY: History of seizure disorder, history of TIAs, history of right MCA territory i nfarcts, hypertension, history of chronic dizziness, hypothyroidism, history of sleep apnea syndrome. MEDICATIONS: Reviewed via nurse's reconciliation sheet. SOCIAL HISTORY: No illicit drug use, smoking or ETOH abuse. FAMILY HISTORY: Noncontributory. REVIEW OF SYSTEMS: A 14-point review of systems is negative except as in HPI. PHYSICAL EXAMINATION: VITAL SIGNS: Temperature 99.2, pulse rate of 80, blood pressure 134/86, respiratory rate 19, oxygen saturation 97% on room air. GENERAL: The patient is sitting up in bed in no acute distress. HEENT: Atraumatic, normocephalic. PERRLA. Extraocular muscles intact. NECK: Supple. No JVD, no adenopathy noted. LUNGS: Clear to auscultation. No adventitious sounds. HEART: S1, S2, normal rate and rhythm. No murmurs, rubs, or gallops. ABDOMEN: Soft, nontender, nondistended. Bowel sounds are present. EXTREMITIES: No clubbing, no cyanosis. Peripheral pulses 2+ felt bilaterally. NEUROLOGIC: The patient is alert, oriented to person, place, month and year. Recall at 5 minutes is 0/3. Poor attention span. Slow thought process. Cranial nerves II through XII are intact. MOTOR: Moves all extremities equally except for her right lower leg just feels heavy, though MRI of the brain did not show any acute infarct. She has difficulty lifting up the right leg completely, bu t is able to bend it and drag it off the bed, likely mainly from her lower back pain. DEEP TENDON REFLEXES: 2+ throughout and absent at the ankles. COORDINATION: Jbfgzx-by-baxy intact. She has a Mallampati score of 4 indicating sleep apnea syndrom e. Gait is deferred for now. LABORATORY DATA: Sodium 135, potassium 4.4, chloride 104, carbon dioxide 27, BUN of 35, creatinine 1 .7, random glucose 111. 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 Came in for a constant dizziness in terms of light headedness and spinning sensation of the room. Did not reveal any orthostatic signs. She has histor y of questionable vasculitis of the brain and history of brain aneurysm. MRI of the brain just showe d focal encephalomalacia and small areas in the right medial parietal and right frontal lobe, which i s possibly likely responsible for her previous history of seizures in the past. At this time, her di zziness could be most likely either cervical or ENT related. I will continue to do some vasculitic w orkup and order ESR, lupus workup, as well as rheumatoid factor workup, in addition to Sjogren's dise ase workup. I will order an MRI of the brain to assess her vasculature, as well as an MRI of the C-s pine and L-spine to assess for her lumbosacral disease, as well as her cervical area tightness. At t his time, she will possibly need subacute rehab, possibly TRCU for underlying deconditioned state and recommend to be on Lamictal 25 mg p.o. b.i.d. for seizure prevention. Recommend that she needs to b e on at least CPAP for her sleep apnea syndrome, which can be also part of her diagnosis. At this ti me, continue with current present medical management. Thank you for this consult followup. Fidel Rothman MD cc: [id number] TT: 12/17/2016 18:53:23 Confirmation # [id number] Dictation # [id number] dn
--- NOTE | 2016-12-17 19:02 | PN ---
DATE: 12/17/2016 REFERRING PHYSICIAN: Dr. Bell. SUBJECTIVE: The patient is sitting side of the bed. Son and friends at bedside. She still has some lightheadedness, especially walking. Right lower extremity is still weak in strength. Tolerated CP AP well last night. No nausea, no vomiting, no diarrhea. OBJECTIVE: GENERAL: No acute distress. VITAL SIGNS: Temperature is 98, heart rate is 74, respiratory rate is 20, blood pressure 116/71, pul se ox 95% on room air. HEENT: Moist mucous membranes. Crowded airway. Mallampati score is 4. NECK: Supple. No JVD. LUNGS: Have a fair airflow with few rhonchi. HEART: S1, S2. ABDOMEN: Soft, nontender. No organomegaly. EXTREMITIES: There is no edema. NEUROLOGIC: Awake, alert, follows simple commands. MEDICATIONS: She is on Aricept 10 mg daily, Cozaar 100 mg daily, potassium 10 mEq daily, Lamictal 25 mg twice a day, Lasix 40 mg p.r.n., Lexapro 10 mg daily, Lipitor 20 mg daily, metoprolol tartrate 50 mg daily, Neurontin 300 mg twice a day, Plavix 75 mg daily, Protonix 40 mg daily, Synthroid 100 mcg daily. LABORATORY DATA: Reviewed. Shows blood sugar this morning 106. Had MRI of the brain done today. It shows small focal area of atrophy and encephalomalacia in the right medial parietal lobe and right frontal lobe. No acute findings. IMPRESSION AND PLAN: Recurrent transient ischemic attack, history of cerebrovascular accident, histo ry of aneurysmal clipping in the remote past, has right lower extremity weakness, diverticulosis, chr onic obstructive lung disease, hypertension, sleep apnea syndrome, hyperlipidemia, hypothyroidism, se izure disorder. We will continue CPAP while sleeping. Keep head elevated at 45 degrees. Fall preca utions. Will benefit from rehab. Medically stable to [facility]. Will need attended sleep study upon discharge as an outpatient. We will follow with you. Shelton Hannah MD cc: [id number] TT: 12/17/2016 19:02:01 Confirmation # [id number] Dictation # [id number] rn
--- NOTE | 2016-12-18 00:02 | PN ---
DATE: 12/17/2016 The patient seen and examined on the bedside, looks comfortable. Her was sitting on the bedside also. No nausea, vomiting, or diarrhea. No hematuria or hematochezia. No swelling of the legs. No chest pain, no palpitations. Is still feeling dizzy. No fever, no chills. According to the patient, right lower extremity is still weak. Tolerated CPAP very well last night. PHYSICAL EXAMINATION: VITAL SIGNS: Temperature 98, heart rate 74, respiratory rate 20, blood pressure 160/71, and pulse oximetry 95% on room air. HEENT: Head normocephalic, atraumatic. Eyes: PERRLA. Extraocular muscles intact. Conjunctivae clear. Nose patent. Mucous membranes moist. NECK: Supple. No carotid bruit, JVD or thyromegaly. CHEST: Bilaterally symmetrical. HEART: S1, S2 positive. LUNGS: Clear to auscultation. ABDOMEN: Soft. Bowel sounds present. No organomegaly. EXTREMITIES: No edema, no cyanosis. NEUROLOGIC: The patient is awake, alert, follows simple commands. MEDICATIONS: Aricept, Cozaar, potassium, Lamictal, Lasix, Lexapro, Lipitor, metoprolol, Neurontin, Plavix, Protonix, Synthroid. LABORATORY DATA: We do not have recent labs , but I reviewed old labs. Blood sugar is 106. ASSESSMENT AND PLAN: The patient is 61-year-old lady with recurrent transient ischemic attack, history of cerebrovascular accident, history of aneurysmal clipping in the remote past at [facility]. Has right lower extremity weakness, diverticulosis, obesity, chronic obstructive lung disease, hypertension, sleep apnea syndrome, hypothyroidism, history of seizures. We will continue CPAP. The patient went for MRI, shows a mild focal area of atrophy and encephalomalacia in the medial parietal lobe and right frontal lobe , no acute finding. Length of time discussion done with Dr. Fidel Rothman. He ordered MRI of the brain also. History of vasculitis in the brain, degenerative joint disease. Her dizziness could be due to the possibly likely responsible for the previous stroke or seizures in the past maybe due cervical spine problem or ENT. We will call ENT consult. Vasculitis workup ordered by Dr. Fidel Rothman including ESR and lupus, rheumatoid factor, and Sjogren's syndrome disease. We will do MRI of the C-spine and lumbar spine also. Maybe the patient will need subacute rehab also, we will try to TCU , the patient is deconditioned. Dr. Rothman recommended Lamictal for seizure prevention. Gastrointestinal and deep venous thrombosis prophylaxis. Repeat labs. Will followup. Janell Bell MD cc: [id number] TT: 12/18/2016 00:01:30 Confirmation # [id number] Dictation # [id number] dn MTDD
[2016-12-18] MEDS: Potassium Chloride 10 mEq ER Tab PO SCH (09:04)
[2016-12-18] MEDS: Pantoprazole 40 mg EC Tab PO SCH (09:08)
[2016-12-18] MEDS: Levothyroxine 100 MCG TAB PO SCH (09:08)
--- NOTE | 2016-12-18 14:03 | MRI ---
PROCEDURE: MR CERVICAL SPINE WITHOUT CONTRAST HISTORY: NECK PAIN COMPARISON: None available. TECHNIQUE: Multiecho multiplanar sequences were performed through the cervical spine without the use of intravenous contrast. FINDINGS: Normal lordotic curvature. Craniocervical junction unremarkable. Vertebral body heights preserved. No marrow signal abnormality. Normal cervical cord. No paraspinal abnormality. C2-C3: No disc herniation, spinal canal stenosis or neural foraminal narrowing. C3-C4: No disc herniation, spinal canal stenosis or neural foraminal narrowing. C4-C5: There is a moderate disc bulge with bilateral foraminal stenosis image 16 series 5 C5-C6: There is a moderate disc bulge producing severe bilateral foraminal stenosis and moderate to severe central stenosis image 20 series 5 C6-C7: There is a severe disc bulge with an osteophytic ridge with bilateral foraminal stenosis right greater than left and mild central stenosis image 25 series 5. C7-T1: There is disc degeneration with a right paracentral disc protrusion seen best on image 32 series 6. OTHER FINDINGS: None. IMPRESSION: Multilevel disc degeneration and stenosis. Focal disc protrusion on the right at C7-T1
--- NOTE | 2016-12-18 14:10 | MRI ---
PROCEDURE: Magnetic Resonance Angiography Brain HISTORY: vascultiis tia COMPARISON: None available. TECHNIQUE: 3D time of flight MR angiography of the intracranial arteries was performed. Rotating maximum intensity projection images were generated. FINDINGS: INTERNAL CEREBRAL ARTERIES: Unremarkable. The skull base, petrous, cavernous and supraclinoid segments are bilaterally widely patient. ANTERIOR CEREBRAL ARTERIES: Unremarkable. A1 and A2 segments are widely patent. Smaller distal branches unremarkable, as visualized. MIDDLE CEREBRAL ARTERIES: Unremarkable. M1 and M2 segments are widely patent. Perisylvian branches grossly symmetric. POSTERIOR CIRCULATION: Basilar Artery: Unremarkable. Distal Vertebral Arteries: Unremarkable. Posterior Cerebral Arteries: Unremarkable. Posterior Inferior Cerebellar Arteries: Unremarkable. ANEURYSM/ VASCULAR MALFORMATIONS: None. OTHER FINDINGS: None. IMPRESSION: Unremarkable MR angiography of the brain.
--- NOTE | 2016-12-18 14:21 | MRI ---
PROCEDURE: MR LUMBAR SPINE WITHOUT CONTRAST HISTORY: L spine COMPARISON: None available. TECHNIQUE: Multiecho multiplanar sequences were performed through the lumbar spine without the use of intravenous contrast. FINDINGS: Normal lumbar lordosis. Vertebral body heights are preserved. Marrow signal unremarkable. Conus medullaris unremarkable at the level of T12 Paraspinal soft tissues are unremarkable. T12-L1: There is a large right paracentral disc herniation which compresses the right side of the thecal sac. The herniation measures 10 mm wide by 9 mm AP x 23 mm in height. This is best seen on image 8 series 3 and image 7 series 7. L1-2: Severe disc degeneration with asymmetric disc bulge and moderate stenosis L2-3: Disc bulge and small central protrusion L3-4: Mild disc bulge L4-5: Moderate size left paracentral disc herniation the compresses the left side of the thecal sac. There is also moderate stenosis at this level. Image 11 series 6. Bilateral foraminal stenosis L5-S1: Asymmetric disc bulge with severe foraminal stenosis on the right side OTHER FINDINGS: None. IMPRESSION: Multilevel disc degeneration. Large right-sided disc herniation at T12-L1 and a left-sided disc herniation at L4-5.
--- NOTE | 2016-12-18 21:54 | CON ---
DATE: 12/18/2016 REASON FOR CONSULTATION: Dizziness. HISTORY OF PRESENT ILLNESS: The patient is a 61-year-old female with a past medical history of hyper tension, hypercholesterolemia, seizures, hypothyroidism, TIA, brain aneurysm, pyelonephritis and dive rticulitis, who was sent to the ER from the patient's office of Dr. Bell, complaining of dizziness for 2 weeks, that she probably feels unsteady gait due to the dizziness and has had some nausea durin g that time. She clammy and almost passing out. She denied any facial weakness or chills. No nausea, vomiting or diarrhea. The patient has been followed here as an inpatient and worked up ____ _ followed as an inpatient, ruling out other causes of possible dizziness. The patient also had an M RI of the brain completed with no acute findings. This patient is also is having a vasculitis workup . Also was being placed on Lamictal for seizure prevention. The patient was seen and examined. She denies any active dizziness at this time. Denies symptoms of vertigo or the sensation of the room s pinning. Denies any otalgia. Denies headaches, changes in vision, nausea, vomiting, diarrhea, chest pain, shortness of breath, fevers, night sweats. The patient states she does have dizziness when sh e is at home sometimes when turning her head, but is not actively having any dizziness at this moment . ALLERGIES: No known drug allergies. HABITS: Does not smoke, no drugs and no ethanol use. HOME MEDICATIONS: Plavix, Aricept, simvastatin, Nexium, Lasix, Neurontin, Synthroid, metoprolol, ph enytoin and clonidine. PHYSICAL EXAMINATION: VITAL SIGNS: Temperature 97.6, pulse 56, blood pressure 114/58, respiratory rate 19, O2 sat is 99% o n room air. GENERAL: Alert and oriented x 3, in no acute distress, morbidly obese, and does not appear in acute distress with normal voice. EYES: EOMI, PERRLA. No nystagmus noted. No nystagmus with turning of the patient's head from right to left. No symptoms of dizziness on turning right to left. MOUTH: Moist mucous membranes. No floor of mouth swelling. No tongue deviation. Symmetric palate elevation. Poor dentition. NECK: Trachea midline. No tenderness to palpation, supple. No lymphadenopathy. EARS: Left ear visualize canals clear. TM visualized, TMs intact. Unremarkable right ear exam and canals clear. TMs are intact and unremarkable on exam. No pain with manipulation of the auricles bi laterally. RESPIRATORY: Aerating well, no stridor, nonlabored breathing. LABORATORY DATA: No new labs on 12/18, just glucose. The patient did have a C-reactive protein on of 6.09 and an ESR of 35 with a vitamin B 12 of 276. ASSESSMENT AND PLAN: The patient is a 61-year-old female with history of transient ischemic attack a nd seizure disorder. At this time, the patient has no longer dizziness. PLAN: Recommend the patient follow up as an outpatient for outpatient VNG studies upon discharge to evaluate any dizziness or vertigo sensations further; however, the patient is not actively dizzy at t his time. The patient's symptoms do not appear to be otologic in nature. Defer medical management t o the medical team at this time. Piotr De Leon DO cc: [id number] TT: 12/18/2016 21:53:00 Confirmation # [id number] Dictation # [id number] martin
--- NOTE | 2016-12-19 07:43 | PN ---
DATE: 12/18/2016 The patient is a 61-year-old female. The patient is seen and examined on the bedside, looks comfortable. Still having dizziness, especially on changing head position. Cannot walk due to dizziness, as per patient, especially when she goes to the bathroom, she is feeling dizzy. No nausea, vomiting, diarrhea. No hematuria, no hematochezia. No swelling of the legs. No chest pain, no palpitation. No headache, no dizziness. No fever, no chills. PHYSICAL EXAMINATION: VITAL SIGNS: Temperature 97.6, pulse 77, blood pressure 114/58, respiratory rate 19. HEENT: Head normocephalic, atraumatic. Eyes PERRLA. Extraocular muscles intact. Conjunctivae clear. Nose patent. Mucous membranes moist. NECK: Supple. No carotid bruit, no JVD, no thyromegaly. CHEST: Bilaterally symmetrical. HEART: S1, S2 positive. LUNGS: Clear to auscultation. ABDOMEN: Soft. Bowel sounds positive. No organomegaly. EXTREMITIES: No edema, no cyanosis. NEUROLOGIC: The patient is awake, alert, moving all 4 extremities. No focal deficits. MEDICATIONS: Aricept, Cozaar, potassium, Lamictal, Lasix, Lexapro, Lipitor, metoprolol, Neurontin, Paxil, Protonix, Synthroid. LABORATORIES: We do not have recent labs today, but I reviewed old labs. ESR is 35. Glucose 120. B12 is 276. ASSESSMENT AND PLAN: The patient is a 61-year-old lady with hyperglycemia, vitamin B mild deficiency. Dilantin level is like less than 3. Dr. Rothman started Lamictal. The patient was seen by ENT, Dr. De Leon. According to him, patient's symptoms do not appear to be otolaryngologic in nature. The patient went for cervical spine MRI, multilevel disk degeneration and osteophytes, focal disk protrusion on right C7-T1, so she has herniated disk. Went for lumbar spine MRI, multilevel disk degeneration, large right-sided disk herniation at T12-L1 and left disk herniation L4-L5. The patient went for head MRA, unremarkable MR angiography of the brain. The patient has history of seizures, history of brain aneurysm, obstructive sleep apnea, history of recurrent transient ischemic attack, history of cerebrovascular accident, aneurysmal clipping at [facility]. Getting CPAP. Now, all MRIs reviewed by me. We will continue present treatment. We will try to take patient to TCU for rehab. Gastrointestinal and deep venous thrombosis prophylaxis. Repeat labs. We will follow up. Janell Bell MD cc: [id number] TT: 12/19/2016 07:42:22 Confirmation # [id number] Dictation # [id number] en MTDD
[2016-12-19] MEDS: Levothyroxine 100 MCG TAB PO SCH (09:01)
[2016-12-19] MEDS: Pantoprazole 40 mg EC Tab PO SCH (09:02)
[2016-12-19] MEDS: Potassium Chloride 10 mEq ER Tab PO SCH (09:02)
--- NOTE | 2016-12-19 17:41 | PN ---
DATE: 12/19/2016 REFERRING PHYSICIAN: Dr. Bell. SUBJECTIVE: She is out of bed to chair. Night was unremarkable. Tolerated BiPAP well. Still yana g lightheadedness when she walks. No nausea, no vomiting, no diarrhea. Leg weakness is improving. OBJECTIVE: GENERAL: In no acute distress. VITAL SIGNS: Temp is 98, heart is 68, respiratory rate is 20, blood pressure 120/67 and pulse ox 95% on room air. HEENT: Moist mucous membranes. Crowded airway. Mallampati score is 4. NECK: Supple. No JVD. LUNGS: Has a fair airflow with a few rhonchi. HEART: S1, S2. ABDOMEN: Soft, nontender. No organomegaly. EXTREMITIES: There is no edema. NEUROLOGIC: Awake, alert, follows simple commands. MEDICATIONS: She is on Aricept 10 mg daily, Cozaar 100 mg daily, potassium 10 mEq daily, Lamictal 25 mg twice a day, Lasix 10 mg daily, Lexapro 10 mg daily, Lipitor 20 mg daily, metoprolol tartrate 50 mg daily, Neurontin 300 mg twice a day, Plavix 75 mg daily, Protonix 40 mg daily, Synthroid 100 mcg d aily. LABORATORY DATA: Sugar is 114. The patient was seen by ENT and medical management. IMPRESSION AND PLAN: Recurrent transient ischemic attack, history of cerebrovascular accident, aneur ysmal clipping in the remote past, right lower extremity weakness, which is improving; diverticulosis , chronic obstructive lung disease, obstructive sleep apnea syndrome, hypertension, hyperlipidemia, h ypothyroidism, seizure disorder. Yesterday she felt well. Today again had some lightheadedness. To lerated CPAP well. Will definitely need a sleep study as an outpatient. I am going to take the [facility] to hold Neurontin. Will speak to neurology; is the Neurontin making her lightheadedness. Because of her seizure activity will request neurology either switch to another antileptic medication, which causes less central effect. For now, continue BiPAP while sleeping and bronchodilator. Keep head e levated at 45 degrees. Thank you and will follow with you. Shelton Hannah MD cc: [id number] TT: 12/19/2016 17:41:35 Confirmation # [id number] Dictation # [id number] dn
--- NOTE | 2016-12-19 21:18 | PN ---
DATE: 12/19/2016 SUBJECTIVE: The patient was seen and examined on the bedside, looks comfortable. No nausea, vomiting, or diarrhea ____ no headache, but still having dizziness, especially when changing the position. No fever, no chills. Leg weakness is improving, as per patient. PHYSICAL EXAMINATION: VITAL SIGNS: Temperature 98.1, heart rate 60, respiratory rate 20, blood pressure 140/67. Pulse oximetry 95% on room air. HEENT: Head normocephalic, atraumatic. Eyes: PERRLA. Extraocular muscles intact. Conjunctivae clear. Nose patent. Mucous membranes moist. NECK: Supple. No carotid bruit, JVD or thyromegaly. CHEST: Bilaterally symmetrical. HEART: S1, S2 positive. LUNGS: Clear to auscultation. ABDOMEN: Soft. Bowel sounds positive. No organomegaly. EXTREMITIES: No edema, no cyanosis. NEUROLOGIC: The patient is awake, alert, moving all 4 extremities. No focal deficit. MEDICATIONS: Aricept, Cozaar, potassium, Lamictal, Lasix, Lexapro, Lipitor, metoprolol, Neurontin, Plavix, Protonix, Synthroid. LABORATORY DATA: We do not have labs today, but I reviewed old labs. Sugar is 114. ASSESSMENT AND PLAN: The patient is a 61-year-old lady with recurrent transient ischemic attack, history of cerebrovascular accident, brain aneurysm, clipped in remote past at [facility]. According to family, at that time, she had vasculitis of the brain, right lower extremity weakness, which is improving, history of diverticulitis, improved, chronic obstructive lung disease, sleep apnea syndrome, hypertension, hypercholesterolemia, hypothyroidism, seizure disorder. she is still complaining about lightheadedness and dizziness. The patient was seen by Dr. De Leon, ENT. According to him , her dizziness is not due to ear , emphasis on patient's cerebrovascular accident and transient ischemic attack. Gastrointestinal and deep venous thrombosis prophylaxis. Repeat labs. We will follow up. Janell Bell MD cc: [id number] TT: 12/19/2016 21:18:07 Confirmation # [id number] Dictation # [id number] genaro CALLAWAY
[2016-12-20] MEDS: Potassium Chloride 10 mEq ER Tab PO SCH (09:25)
[2016-12-20] MEDS: Pantoprazole 40 mg EC Tab PO SCH (09:25)
[2016-12-20] MEDS: Levothyroxine 100 MCG TAB PO SCH (09:25)
--- NOTE | 2016-12-20 12:37 | PN ---
DATE: 12/20/2016 CHIEF COMPLAINT: Follow up for dizziness. SUBJECTIVE: The patient is seen and examined at bedside. She is sitting up in the chair, doing much better. Her right lower leg weakness is much better than prior. She had an MRI of the brain, which showed some focal areas of atrophy, and encephalomalacia in the ri ght medial parietal lobe, as well as right frontal lobe, which does correspond to history of having s eizures, but now she is on Lamictal 25 mg p.o. b.i.d. for underlying seizure prophylaxis. Her dizzin ess is much better. MRI of the C-spine showed multilevel degenerative stenosis and focal disk protrusion at the right C7- T1. She had an MRI of the lumbosacral spine, which showed multilevel disk herniation and a large rig ht-sided disk herniation at T12-L1, and left-sided disk herniation at L4-L5. She is otherwise in no acute distress. ENT evaluated. PAST MEDICAL HISTORY: Seizure disorder, history of TIAs, history of right MCA territory infarction, hypertension, history of chronic dizziness, hypothyroidism, history of sleep apnea syndrome. MEDICATIONS: Reviewed via nurse's reconciliation sheet. SOCIAL HISTORY: No illicit drug use, smoking, or ETOH abuse. FAMILY HISTORY: Noncontributory. REVIEW OF SYSTEMS: A 14-point review of systems is negative except as in the HPI. PHYSICAL EXAMINATION: VITAL SIGNS: Temperature 97.4, pulse rate of 58, blood pressure 143/75, respiratory rate 20, oxygen 9____% by room air. GENERAL: The patient is sitting up in bed in no acute distress. HEENT: Atraumatic, normocephalic. PERRLA. Extraocular muscles intact. NECK: Supple. No JVD, no adenopathy noted. LUNGS: Clear to auscultation. No adventitious sounds. HEART: S1, S2, normal rate and rhythm. No murmurs, rubs, or gallops. ABDOMEN: Soft, nontender, nondistended. Bowel sounds present. EXTREMITIES: No clubbing, no cyanosis. Peripheral pulses 2+ felt bilaterally. NEUROLOGIC: The patient is alert, oriented to person, place, month, and year. Recall after 5 minute s is 0/3. Poor attention span. Slow thought process. Speech is fluent without any errors. Cranial nerves II-XII are intact. MOTOR: Moves all extremities equally except for some right lower extremity heaviness, but otherwise, can move it much better today. She is able to lift up the leg. DEEP TENDON REFLEXES: 2+ throughout and 1 at the knees, and absent at the ankles. COORDINATION: [id number] intact. GAIT: Deferred for now. LABORATORIES: Today's blood sugar is 114. B12 level is 276. ASSESSMENT AND PLAN: This is a 61-year-old woman with history of hypertension, dyslipidemia, history of brain aneurysm, history of questionable vasculitis in the brain, hypothyroidism, degenerative maximo nt disease, history of stroke in the right middle cerebral artery territory, history of seizures from old encephalomalacia in the right middle cerebral artery territory who came in for constant dizzine ss in terms of lightheadedness, spinning sensation of the room. Orthostatic signs are negative. MRI of the brain showed some focal encephalomalacia and small areas of right medial parietal and right f rontal lobe, which was most likely responsible for her previous history of seizures in the past. MRA of the head was unremarkable. Her MRI C-spine showed multilevel disk degenerative stenosis, and foc al disk protrusion on the right at C7-T1. MRI of the lumbar spine showed multilevel disk degeneratio n and large right-sided disk herniation at T12-L1, and left-sided disk herniation at L4-L5. At this time, she has a mildly elevated ESR as CRP, and generalized inflammation, likely from her shanna n. Overall, I feel like her dizziness is secondary to inner ear with underlying cervical etiology gi barbara that she has cervical disease. Her right leg weakness is likely secondary to lumbosacral radicul opathy phenomena given her MRI of the lumbosacral spine showing multilevel disk degeneration, large r ight-sided disk herniation at T12-L1, and left-sided disk herniation at L4-L5. At this time, recommend: 1. Subacute rehab for deconditioned state. 2. Continue Lamictal 25 mg p.o. b.i.d. for seizure prevention. 3. Continue with CPAP for sleep apnea syndrome. 4. Would need cervical and lumbar physical therapy given her stenosis. 5. We will recommend a neurosurgical evaluation to evaluate her MRI of the lumbosacral spine given h er large size disk herniation on the right. At this time, continue with current present medical management. Thank you. Fidel Rothman MD cc: [id number] TT: 12/20/2016 12:37:18 Confirmation # [id number] Dictation # [id number] jn
[2016-12-20] MEDS ORDERED: Potassium Chloride 20 mEq ER Tab PO ONE (16:33)
--- NOTE | 2016-12-20 22:27 | PN ---
DATE: 12/20/2016 PULMONARY PROGRESS NOTE REFERRING PHYSICIAN: Dr. Bell. SUBJECTIVE: The patient is sitting up in a chair. Friend is at bedside. Night was unremarkable. N o dizzy spells. No headache, no rhinitis. Tolerated CPAP well. No nausea, no vomiting, no diarrhea . No leg pain or leg swelling. OBJECTIVE: GENERAL: No acute distress. VITAL SIGNS: Temperature is 98, heart rate is 69, respiratory rate is 20, blood pressure 133/59 and pulse ox 95% on room air. HEENT: Moist mucous membranes. Crowded airway. NECK: Supple. No JVD. LUNGS: Has a fair airflow with few rhonchi. HEART: S1, S2. ABDOMEN: Soft, nontender. No organomegaly. EXTREMITIES: There is no edema. NEUROLOGIC: Awake, alert, follows simple command. MEDICATIONS: She is on Aricept 10 mg daily, Cozaar 100 mg daily, potassium 10 mEq daily, Lamictal 25 mg twice a day, Lasix 40 mg daily, Lexapro 20 mg daily, metoprolol tartrate 50 mg daily, gabapentin 300 mg twice a day, Plavix 75 mg daily, Protonix 40 mg daily, Synthroid 100 mcg daily. LABORATORY DATA: Reviewed and noted. Blood sugar is 114. IMPRESSION AND PLAN: Recurrent transient ischemic attack, rule out cerebrovascular accident, history of aneurysmal clipping, right lower extremity weakness which is improving, diverticulosis, chronic o bstructive lung disease, obstructive sleep apnea syndrome, hypertension, hyperlipidemia, hypothyroid, seizure disorder, may have sleep apnea syndrome. Since in the hospital, tolerating BiPAP well and f eels much better. is improved, still has residual right leg mild weakness, getting physical th erapy. Also, neurology neurosurgery consulted. The case discussed with Dr. Bell. Thank you and will follow with you. Shelton Hannah MD cc: [id number] TT: 12/20/2016 22:26:47 Confirmation # [id number] Dictation # [id number] mn
--- NOTE | 2016-12-21 06:45 | PN ---
DATE: 12/20/2016 SUBJECTIVE: The patient was seen and examined on the bedside, looks comfortable. No nausea, vomitin g, or diarrhea. No hematuria or hematochezia. No swelling of the leg. No chest pain, no palpitatio ns. No headache, no dizziness. Tolerating CPAP very well. No fever, no chills. PHYSICAL EXAMINATION: VITAL SIGNS: Temperature is 98, heart rate 60, respiratory rate 20, blood pressure 133/59, and pulse oximeter 95% on room air. HEENT: Head normocephalic, atraumatic. Eyes: PERRLA. Extraocular muscles intact. Conjunctivae cl ear. Nose patent. Mucous membranes moist. NECK: Supple. No carotid bruit, JVD or thyromegaly. CHEST: Bilaterally symmetrical. HEART: S1, S2 positive. LUNGS: Clear to auscultation. ABDOMEN: Soft, nontender. No organomegaly. EXTREMITIES: No edema, no cyanosis. NEUROLOGIC: The patient is awake, alert, follows simple commands. MEDICATIONS: Aricept, Cozaar, potassium, Lamictal, Lasix, Lexapro, metoprolol, gabapentin, Plavix, P rotonix, Synthroid. LABORATORY DATA: We do not have recent labs today, but I reviewed old labs. Blood sugar is 114. ASSESSMENT AND PLAN: The patient is a 61-year-old lady with recurrent transient ischemic attack, cer ebrovascular accident, aneurysmal clipping in [facility], right lower extremity weakn ess which is improving, diverticulosis, chronic obstructive lung disease, obstructive sleep apnea syn drome, hypertension, hypercholesterolemia, hypothyroidism, seizures, sleep apnea syndrome, was admitt ed for dizziness, lightheadedness, now improving; stil has right leg weakness, getting physical thera py. Neurologist is on the case, recommending neurosurgical consult. Length of time discussion done with Dr. Hannah. The patient needs good physical therapy. The patient had MRI of the neck and cervi delvin spine, shows multilevel degenerative stenosis, focal disk protrusion on the right at C7-T1. MR o f the lumbar spine showed multilevel disk degeneration and large right-sided disk herniation at T12-L 1 and left-sided disk herniation L4-L5. Maybe her dizziness is due to inner ear or cervical etiology . Her right leg weakness may be due to the lumbosacral radiculopathy. Subacute rehabilitation for d econditioned state. Continue Lamictal. Continue CPAP. Needs cervical and lumbosacral the physical therapy. We will talk to neurosurgery. We will follow up. Janell Bell MD cc: [id number] TT: 12/21/2016 06:44:41 Confirmation # [id number] Dictation # [id number] tn
[2016-12-21] MEDS: Pantoprazole 40 mg EC Tab PO SCH (07:23)
[2016-12-21 07:38] LABS: ALB/GLOB RATIO 1.2 (1.1-1.8); ALKALINE PHOSPHATASE 134 U/L (38-133); ALT/SGPT 38 U/L (7-56); AST/SGOT 26 U/L (15-39); BILIRUBIN,TOTAL 0.5 mg/dL (0.2-1.3); BLOOD UREA NITROGEN 18 mg/dL (7-21); CALCIUM 9.6 mg/dL (8.4-10.5); CARBON DIOXIDE 28 mmol/L (21-33); CHLORIDE 104 mmol/L (98-107); GFR AFRICAN-AMERICAN > 60; GLUCOSE,RANDOM 96 mg/dL (70-110); POTASSIUM 4.4 mmol/L (3.6-5.0); SODIUM 141 mmol/L (132-148); TOTAL PROTEIN 7.1 g/dL (5.8-8.3)
[2016-12-21 08:12] VITALS: RESP 20
--- NOTE | 2016-12-21 08:28 | PN ---
DATE: 12/18/2016 REFERRING PHYSICIAN: Dr. Bell. SUBJECTIVE: The patient is sitting out of bed to chair. Night was unremarkable. Tolerated BiPAP we ll. Still has a lightheadedness feeling. No headache, no rhinitis. No nausea, no vomiting, no diar maya. Still has mild leg weakness. OBJECTIVE: GENERAL: In no acute distress. VITAL SIGNS: Temp is 98, heart rate is 56, respiratory rate is 20, blood pressure 114/58, pulse ox 9 9% on room air. Tilt test was negative for any after orthostatic hypotension. HEENT: Moist mucous membranes. Crowded airway. Mallampati score is 4. NECK: Supple. No JVD. LUNGS: Has a fair airflow with a few rhonchi. HEART: S1, S2. ABDOMEN: Soft, nontender. No organomegaly. EXTREMITIES: There is no edema. NEUROLOGIC: Awake, alert, follows simple commands. MEDICATIONS: She is on Aricept 10 mg daily, Cozaar 100 mg daily, potassium 10 mEq daily, Lamictal 25 mg twice a day, Lasix 40 mg daily p.r.n., Lexapro 10 mg daily, Lipitor 20 mg daily, metoprolol tartr ate 50 mg daily, Neurontin 300 mg twice a day, Plavix 75 mg daily, Protonix 40 mg daily, Synthroid 10 0 mcg daily. LABORATORY DATA: Shows SED rate is 35. C-reactive protein 6.09. Vitamin B12 is 276. MRI of cervic al and lumbar spine shows multilevel edema degenerative joint disease. Also, cervical and thoracic s pine disk herniation. MRA of the head also done, which showed unremarkable MRA angioplasty of the br ain. IMPRESSION AND PLAN: Recurrent transient ischemic attack, history of cerebrovascular accident, histo ry of aneurysmal clipping in the remote past, has some encephalomalacia on MRI, right lower extremity mild weakness, diverticulosis, chronic obstructive lung disease, hypertension, may have sleep apnea syndrome, hyperlipidemia, hypothyroidism, seizure disorder. All the neurology workup so far there is no pinpoint why the right lower extremity has been weak, is it just weakness from cervical finding o n the MRI or small stroke, which we are now picking up still on MRI; so, recurrent transient ischemic attacks, is it seizure? Pulmonary point of view, she does have sleep apnea syndrome. Tolerated CPA P well. Will need attended sleep study upon discharge. Will benefit from TRCU type services to get rehab. Neurology followup. Thank you and will follow with you. Shelton Hannah MD cc: [id number] TT: 12/18/2016 18:28:18 Confirmation # [id number] Dictation # [id number] dn
[2016-12-21] MEDS: Potassium Chloride 10 mEq ER Tab PO SCH (09:10)
[2016-12-21] MEDS: Levothyroxine 100 MCG TAB PO SCH (09:12)
--- NOTE | 2016-12-21 12:35 | CP.PCM.CON ---
History of Present Illness - History of Present Illness History of Present Illness: SPINE CONSULT Full consult dictated. Pt seen and examined. Agree with plan for [facility] or outpt PT. Will see again if neuro complaints fail to improve or worsen. Thanks. Past Patient History - Infectious Disease Hx of Infectious Diseases: None - Tetanus Immunizations Tetanus Immunization: Unknown - Past Medical History & Family History Past Medical History?: Yes - Past Social History Smoking Status: Former Smoker - CARDIAC Hx Hypercholesterolemia: Yes Hx Hypertension: Yes - PULMONARY Hx Bronchitis: Yes (when she was 24) Hx Pneumonia: Yes - NEUROLOGICAL Hx Dizziness: Yes Hx Seizures: Yes (3 months ago. minor complex seizure) Hx Transient Ischemic Attacks (TIA): Yes (x5 last one one year ago) - HEENT Hx HEENT Problems: No Other/Comment: wears glasses - RENAL Hx Kidney Stones: Yes - ENDOCRINE/METABOLIC Hx Hypothyroidism: Yes - HEMATOLOGICAL/ONCOLOGICAL Hx Blood Disorders: No - INTEGUMENTARY Hx Dermatological Problems: No - MUSCULOSKELETAL/RHEUMATOLOGICAL Hx Arthritis: Yes - GASTROINTESTINAL Hx Gastrointestinal Disorders: Yes Hx Diverticulitis: Yes Hx Gall Bladder Disease: Yes - GENITOURINARY/GYNECOLOGICAL Hx Hematuria: Yes Hx Incontinence: Yes Hx Urinary Tract Infection: Yes - PSYCHIATRIC Hx Psychophysiologic Disorder: Yes Hx Anxiety: Yes Hx Depression: Yes Hx Substance Use: No - SURGICAL HISTORY Hx Cholecystectomy: Yes Other/Comment: brain annureysm 10 years ago - ANESTHESIA Hx Anesthesia Reactions: No Hx Malignant Hyperthermia: No Meds Allergies/Adverse Reactions: Allergies Allergy/AdvReac Type Severity Reaction Status Date / Time No Known Allergies Allergy Verified 12/14/16 18:15 - Medications Medications: Current Medications Atorvastatin Calcium (Lipitor) 20 mg PO HS [facility] Last Admin: 12/20/16 21:49 Dose: 20 mg Clopidogrel Bisulfate (Plavix) 75 mg PO DAILY [facility] Last Admin: 12/21/16 09:11 Dose: 75 mg Donepezil HCl (Aricept) 10 mg PO DAILY [facility] Last Admin: 12/21/16 09:10 Dose: 10 mg Escitalopram Oxalate (Lexapro) 10 mg PO DAILY [facility] Last Admin: 12/21/16 09:11 Dose: 10 mg Furosemide (Lasix) 40 mg PO DAILY PRN PRN Reason: Swelling Gabapentin (Neurontin) 300 mg PO BID [facility] PRN Reason: Protocol Last Admin: 12/21/16 09:11 Dose: 300 mg Lamotrigine (Lamictal) 25 mg PO BID [facility] PRN Reason: Protocol Last Admin: 12/21/16 09:10 Dose: 25 mg Levothyroxine Sodium (Synthroid) 100 mcg PO DAILY [facility] Last Admin: 12/21/16 09:12 Dose: 100 mcg Losartan Potassium (Cozaar) 100 mg PO DAILY [facility] Last Admin: 12/21/16 09:10 Dose: 100 mg Metoprolol Tartrate (Lopressor) 50 mg PO DAILY [facility] Last Admin: 12/21/16 09:11 Dose: 50 mg Pantoprazole Sodium (Protonix Ec Tab) 40 mg PO ACB [facility] Last Admin: 12/21/16 07:23 Dose: 40 mg Potassium Chloride (Klor-Con 10) 10 meq PO DAILY [facility] Last Admin: 12/21/16 09:10 Dose: 10 meq Results - Vital Signs Recent Vital Signs: Last Vital Signs Temp 98 F 12/21/16 08:11 Pulse 62 12/21/16 09:11 Resp 20 12/21/16 08:11 BP 132/74 12/21/16 09:11 Pulse Ox 98 12/21/16 08:11 - Labs Result Diagrams: 12/14/16 19:30 12/21/16 06:45 Labs: Laboratory Results - last 24 hr 12/18/16 12/18/16 12/21/16 07:00 07:00 06:45 Sodium 141 Potassium 4.4 Chloride 104 Carbon Dioxide 28 Anion Gap 13 BUN 18 Creatinine 0.8 Est GFR ( Amer) > 60 Est GFR (Non-Af Amer) > 60 Random Glucose 96 Calcium 9.6 Phosphorus 5.0 H Total Bilirubin 0.5 AST 26 ALT 38 Alkaline Phosphatase 134 H Total Protein 7.1 Albumin 3.9 Globulin 3.2 Albumin/Globulin Ratio 1.2 Rheumatoid Factor 12 Complement C3 167 Complement C4 36
--- NOTE | 2016-12-21 13:31 | CON ---
DATE: 12/21/2016 REASON FOR CONSULTATION: Weakness, right lower extremity. HISTORY OF PRESENT ILLNESS: The patient is a pleasant [id number] lady who has been having complai nts of dizziness over the past couple of weeks. She was admitted on the for evaluation. She st ates she is no longer dizzy. She has a history of small stroke as she describes it. However, about the same time she noticed some difficulty ambulating secondary to the right leg feeling "heavy." She thinks it may be a little better now, but she is not sure, she states when she is ambulating with a walker in physical therapy here in the hospital she cannot go too far without the leg bothering her b ecause of the heaviness. However, she has no reports of the leg giving out on her or falling or anyt becca of that nature. She has no problems with the left leg whatsoever. No complaints with her neck or either upper extremity. She states the left side is a little weak in general from her past stroke s, but again the acute complaint was only with the right leg being heavy. PAST MEDICAL HISTORY: Significant for hypertension, hypercholesterolemia, seizure disorder, hypothyr oidism, TIA, brain aneurysm, pyelonephritis, diverticulitis. The seizure history evidently is over 3 0 years ago, but her last seizure was about 6 months ago. HOME MEDICATIONS: Include Plavix, Aricept, simvastatin, Nexium, Lasix, Neurontin, Synthroid, metopro lol, phenytoin and clonidine. ALLERGIES: She is not allergic to any medicine she knows of. PHYSICAL EXAMINATION: She has a full and pain free range of motion of her cervical spine and both up per extremities. Her neurologic exam is grossly intact in both upper extremities with some weak financial project manager strength, but symmetrically so. In terms of her lower extremities, she has some definite weakness o f her hip flexors on the right side compared to the left. Everything distal to that however shows go od strength. Sensory is intact to light touch throughout. No clonus or Babinski's present. Distal pulses are good. No straight leg raising sign. Good motion of the hips and knees otherwise. She had an MRI of the lumbar spine done and the films are reviewed. Shows a large central to right-s ided herniated disk at T12-L1 with compression of the spinal cord. She has a smaller left-sided caty iation at L4-L5. She has got almost complete collapse of the L1-L2 disk space. Desiccation most of the other disks. Some small bulging versus herniation at L5-S1 as well. Again, that appears to be a little more to the left side. IMPRESSION: Right hip weakness, most likely secondary to this herniated disk at T12-L1. At this poi nt, it is not really functionally bothering her and it does seem to be better in that looking at the neurology consultation from Dr. Rothman earlier, she could not really lift the right leg up at all. O n examination today with her sitting in the chair, she can flex the hip up well, but there is just we akness against resistance on the right side and nothing on the left. She denies any acute loss of jes wel or bladder control and has no other long tract signs here. Therefore, I would agree with the ivania n to get her to a rehab place if her insurance will cover it or physical therapy at this point and se e how she does with it. I explained there are risks involved with the pressure she has against the s fermin cord at this level, particularly if she had a traumatic incident and that at some point we may need to consider decompressing that area, but at this point if she is stable and with all her other m edical and vascular issues, it may be risky to try and take her off Plavix or other and risk some oth er type of vascular occurrence than what she has right now. I gave her a card and told her that if a ny changes would occur, if she fails to improve with her physical therapy program, then we should see her for followup and discuss further possible surgical intervention. She is agreeable with this ivania n. So, again, we will see how she does with her therapy and go from there. Thank you for allowing me to participate in the care of your patient. Manan Solitario MD cc: [id number] TT: 12/21/2016 13:30:44 Confirmation # [id number] Dictation # [id number] sn
[2016-12-21 17:24] VITALS: BP 127/82; TEMP 98.8; O2SAT 96
[2016-12-21 18:37] LABS: Interpretation Negative (Negative)
[2016-12-21 18:46] VITALS: PULSE 58
--- NOTE | 2016-12-21 18:57 | CP.PCM.PCO ---
Physician Communication Note - Physician Communication Note Physician Communication Note: needs [facility]. See can f/u with us in outpt. will sign off. thx
--- NOTE | 2016-12-21 22:41 | PN ---
DATE: 12/21/2016 REFERRING PHYSICIAN: Dr. Bell. SUBJECTIVE: The patient is sitting side of the bed. Being discharged home. Seen by neurosurgery. Advised if there is increased pain or discomfort, follow up with neurosurgery. Tolerated BiPAP well last night. No more headache, no dizzy spell, no nausea, no vomiting, no diarrhea, no leg swelling. OBJECTIVE: GENERAL: No acute distress. VITAL SIGNS: Temperature is 98, heart rate is 58, respiratory rate is 20, blood pressure 127/82, pul se ox 96% on room air. HEENT: Moist mucous membranes. Crowded airway. Mallampati score is 4. NECK: Supple. No JVD. LUNGS: A fair airflow with few rhonchi. HEART: S1 and S2. ABDOMEN: Soft, nontender. No organomegaly. EXTREMITIES: There is no edema. NEUROLOGIC: Awake, alert, and follows simple command. MEDICATIONS: Reviewed. No new changes reported. LABORATORY DATA: Reviewed. Sodium 141, potassium 4.4, chloride 104, bicarbonate 28, BUN 18, creatin ine 0.8, glucose is 96, calcium is .6, phosphorus 5.0, AST 26, ALT 38, alkaline phosphatase is 1 34, albumin is 3.9. IMPRESSION AND PLAN: Recurrent transient ischemic stroke, history of cerebrovascular accident, histo ry of cranial aneurysm requiring clipping in the past, right lower extremity some weakness, diverticu losis, chronic obstructive lung disease, obstructive sleep apnea syndrome, hypertension, hyperlipidem ia, hypothyroid seizure disorder. Pulmonary point of view, she is doing well, being discharged home, seen by neurology and neurosurgeon, doing well in therapy. Will need attended sleep study as outpat ient. Fall precaution. Thank you and will follow. Shelton Hannah MD cc: [id number] TT: 12/21/2016 22:40:13 Confirmation # [id number] Dictation # [id number] mn
[2016-12-22 04:02] LABS: PARIETAL CELL AB <20.0 U
[2016-12-22 11:48] LABS: MYOCARDIAL AB IF NEGATIVE (NEGATIVE)
--- NOTE | 2016-12-22 12:22 | DS ---
HISTORY OF PRESENT ILLNESS: The patient is a 61-year-old female with past medical history of hypertension, hypercholesterolemia, seizure disorder, hypothyroidism, TIA, brain aneurysm clipping, pyelonephritis, diverticulitis, came to the Emergency Room for dizziness, lightheadedness. Actually, the patient came in my office for dizziness, lightheadedness. Treatment was given. Then again, cannot recover from dizziness and lightheadedness and then came to [facility]. She has unsteady gait also according to her, associated with dizziness and nausea. The patient was found red in the face and clammy and almost passing out. Actually in my office, we tried to do orthostatic hypotension on her because, per patient, when she is standing or changing her position on the bed, everything is spinning on her. As soon as we tried to do orthostatic, she almost passed out. Then we called 911 and transferred the patient to the hospital. The patient denies fever, chills, nausea, vomiting, diarrhea. We admitted the patient, did CAT scan of the head, MRI of the spinal cord, lumbar spine MRI, head MRA, was seen by Dr. Fidel Rothman, by mining consultant. The patient got better. Plan was give rehab in TCU, but due to insurance problem, cannot transfer the patient to TCU. Then [facility] was offered to the patient. She refused [facility], then discharged home with outpatient physical therapy and the patient was educated to come back, follow up in my office and neurologist. She will bring her daughter in my office so I can explain the daughter her mother's situation. Mother has herniated disk in cervical region. Maybe that is the cause of dizziness and she has herniated disk in lumbar spine area. Maybe that is the cause of the gait problem. The patient was seen by ENT, Dr. De Leon. According to him, dizziness does not look like related with an ear problem, but patient got better. Dr. Rothman changed her seizure medication from Dilantin to Lamictal, will follow up as outpatient. PAST MEDICAL HISTORY: Hypertension, dizziness, history of seizure like 30 years ago, started petit mal seizures, last seizure was 6 months ago. History of hypothyroidism. FAMILY HISTORY: Father and mother noncontributory. HABITS: No smoking, no drugs, no ethanol. ALLERGIES: The patient is not allergic to any medications. HOME MEDICATIONS: Plavix, Aricept, simvastatin, Nexium, Lasix, Neurontin, Synthroid, metoprolol, phenytoin, clonidine. REVIEW OF SYSTEMS: The patient was seen and examined on the bedside. Looks comfortable. No nausea, vomiting, or diarrhea. No hematuria or hematochezia. No headache, no dizziness. Got better. No fever, no chills. PHYSICAL EXAMINATION: VITAL SIGNS: Temperature 98, heart rate 58, respiratory rate 20, blood pressure 130/80, pulse oximetry 96% on room air. HEENT: Head normocephalic, atraumatic. Eyes: PERRLA. Extraocular muscles intact. Conjunctivae clear. Nose patent. Mucous membranes moist. NECK: Supple. No carotid bruit, JVD or thyromegaly. CHEST: Bilaterally symmetrical. HEART: S1, S2 positive. LUNGS: Clear to auscultation. ABDOMEN: Soft. Bowel sounds present. No organomegaly. EXTREMITIES: No edema, no cyanosis. NEUROLOGIC: The patient is awake, alert, moving all 4 extremities. No focal deficits. MEDICATIONS: Aricept, Cozaar, potassium, Lamictal, Lasix, Lexapro, Lipitor, metoprolol, Neurontin, Plavix, Protonix, Synthroid. LABORATORY DATA: White blood cells 8.1, hemoglobin 12.6, hematocrit 37.4, platelets 248. ESR 35. Sodium noted , potassium 4.4, BUN 18, creatinine 0.8. Glucose of 104, phosphorus 5, alkaline phosphatase 134. ASSESSMENT AND PLAN: The patient is a 61-year-old lady with recurrent ischemic attacks, cerebrovascular accident and transient ischemic attack, history of cranial aneurysm requiring clipping in the past in [facility]. Right lower extremity some weakness, some ataxia, diverticulosis, chronic obstructive lung disease, obstructive sleep apnea syndrome, hypertension, hypercholesterolemia, hypothyroidism, history of seizure disorder. The patient was on Dilantin. Neurologist changed it to Lamictal. Neurologist and neurosurgeon, saw the patient. Needs physical therapy. Tried to do TCU, but because of insurance problem, cannot do that. Tried to offer the subacute rehab. The patient refused, wanted to do physical therapy as outpatient and even by neurologist, suggested subacute rehab. Neurologist signed off the case , seen by Altaf Hinkle neurosurgeon. History of seizures, brain aneurysm and history of clipping. Vasculitis workup is done by Dr. Fidel Rothman. History of right leg weakness. According to neurosurgeon, may be due to herniated disk at T12-L1, but according to neurosurgeon, it is not really functionally bothering her and it does seem to be better in looking at the neurological consultation of Dr. Rothman earlier. She should not really lift the right hip up at all and she denies any loss of bowel or bladder control. Has no other long tract signs her, so neurosurgeon agreed with rehab placement if insurance will cover or physical therapy as outpatient. Right now, neurosurgeon does not want to do decompression surgery as per patient. does not want. Reviewed Dr. Hinkle' notes and if the patient will fail physical therapy, neurosurgeon wants to see the patient as outpatient for spinal intervention. The patient agrees. The patient has history of chronic obstructive pulmonary disease, obstructive sleep apnea syndrome, obesity, urged her to lose weight. Sleep apnea syndrome, hypertension, hypercholesterolemia, hypothyroidism. The patient is feeling better with BiPAP and tolerating. Discussion done with Dr. Hannah. Discharge home. Prescription for Lamictal given instead of phenytoin and a prescription for outpatient physical therapy given. Will follow up in my office and is educated to bring her daughter in my office with her so I will explain to the family the situation of neurosurgical suggestions. We will follow up. Janell Bell MD cc: [id number] TT: 12/22/2016 12:21:21 marcial [email or web address]
[2016-12-22 17:28] LABS: RETICULIN AB IGA NEGATIVE (NEGATIVE)
[2016-12-22 21:55] LABS: SM ANTIBODY <1.0 NEG AI (<1.0 NEGATIVE)
[2016-12-23 01:39] LABS: DNA AB (DS) CRITH NEGATIVE (NEGATIVE)
== END 2016-12-21 19:07 | disposition home or self-care (01) ==
LOC: ED 17:20 → ERH 20:03 → 3RNO 22:34 → INTOOBSV 12-15 23:45 → OBSVTOIN 12-15 23:45
PROVIDERS: ADMIT Internal Medicine; ATTEND Internal Medicine
DX: M50.20 Other cervical disc displacement, unspecified cervical region (principal); I67.7 Cerebral arteritis, not elsewhere classified; G93.89 Other specified disorders of brain; M48.04 Spinal stenosis, thoracic region; G95.29 Other cord compression; G40.409 Other generalized epilepsy and epileptic syndromes, not intractable, without status epilepticus; M51.26 Other intervertebral disc displacement, lumbar region; I10 Essential (primary) hypertension; E03.9 Hypothyroidism, unspecified; E78.00 Pure hypercholesterolemia, unspecified; Z86.73 Personal history of transient ischemic attack (TIA), and cerebral infarction without residual deficits; Z87.01 Personal history of pneumonia (recurrent); E66.9 Obesity, unspecified; E78.5 Hyperlipidemia, unspecified; G47.33 Obstructive sleep apnea (adult) (pediatric); G89.29 Other chronic pain; M54.9 Dorsalgia, unspecified; R26.81 Unsteadiness on feet; J44.9 Chronic obstructive pulmonary disease, unspecified; K57.90 Diverticulosis of intestine, part unspecified, without perforation or abscess without bleeding; M51.36 Other intervertebral disc degeneration, lumbar region; M54.17 Radiculopathy, lumbosacral region; Z79.02 Long term (current) use of antithrombotics/antiplatelets; Z79.899 Other long term (current) drug therapy; Z87.440 Personal history of urinary (tract) infections; Z87.442 Personal history of urinary calculi; Z87.891 Personal history of nicotine dependence; Z90.49 Acquired absence of other specified parts of digestive tract; M25.78 Osteophyte, vertebrae; R32 Unspecified urinary incontinence; F41.9 Anxiety disorder, unspecified; F32.89 Other specified depressive episodes; G31.9 Degenerative disease of nervous system, unspecified; R73.9 Hyperglycemia, unspecified; E53.9 Vitamin B deficiency, unspecified
CPT/HCPCS: 36415; 70450; 70544; 70553; 71010; 72141; 72148; 80053; 80061; 80185; 82550; 82607; 82948; 83036; 83516; 83615; 83690; 83735; 84100; 84484; 85025; 85610; 85651; 85730; 86038; 86140; 86160; 86235; 86376; 86431; 86850; 86900; 93005; 93306; 94660; 97116; 97161; 99285; A9579; G0378; G8978; G8979; J3420

== ENCOUNTER 2018-02-26 16:13 | Emergency (ER) | payer OTHER ==
[2018-02-26 16:14] VITALS: BMI 43.7
--- NOTE | 2018-02-26 16:43 | ED PDOC ---
Arrival/HPI - General Chief Complaint: Headache Time Seen by Provider: 02/26/18 16:14 Historian: Patient - History of Present Illness Narrative History of Present Illness (Text): 02/26/18 16:43 Louise Andrew is a 62 year old female, whose past medical history includes hypertension, hypercholesterolemia, hypothyroidisim, TIA, seizures, brain aneurysm, pyelonephritis, and diverticulitis, who presents to the emergency department complaining of KUHN x 2 days. Patient stated pain involved around her head. Patient did not take pain medication. Patient noted mild nauseous, but it has improved. Time/Duration: Other (see hpi) Context: Home Past Medical History - Provider Review Nursing Documentation Reviewed: Yes - Infectious Disease Hx of Infectious Diseases: None - Tetanus Immunization Tetanus Immunization: Unknown - Cardiac Hx Cardiac Disorders: Yes Hx Hypertension: Yes - Pulmonary Hx Respiratory Disorders: Yes Hx Bronchitis: Yes Hx Pneumonia: Yes - Neurological Hx Neurological Disorder: Yes Hx Dizziness: Yes Hx Seizures: Yes Hx Transient Ischemic Attacks (TIA): Yes Other/Comment: BRAIN ANEURSYM - HEENT Hx HEENT Disorder: No - Renal Hx Renal Disorder: Yes Hx Kidney Stones: Yes - Endocrine/Metabolic Hx Endocrine Disorders: Yes Hx Hypothyroidism: Yes - Hematological/Oncological Hx Blood Disorders: No - Integumentary Hx Dermatological Disorder: No - Musculoskeletal/Rheumatological Hx Musculoskeletal Disorders: Yes Hx Arthritis: Yes - Gastrointestinal Hx Gastrointestinal Disorders: Yes Hx Diverticulitis: Yes Hx Gall Bladder Disease: Yes - Genitourinary/Gynecological Hx Genitourinary Disorders: Yes Hx Hematuria: Yes Hx Incontinence: Yes Hx Urinary Tract Infection: Yes - Psychiatric Hx Psychophysiologic Disorder: Yes Hx Anxiety: Yes Hx Depression: Yes Hx Substance Use: No - Surgical History Hx Cholecystectomy: Yes Other/Comment: brain annureysm 10 years ago - Anesthesia Hx Anesthesia Reactions: No Hx Malignant Hyperthermia: No - Suicidal Assessment Feels Threatened In Home Enviroment: No Family/Social History - Physician Review Nursing Documentation Reviewed: Yes Family/Social History: Other (noncontributory) Smoking Status: Former Smoker Hx Alcohol Use: No Hx Substance Use: No Hx Substance Use Treatment: No Allergies/Home Meds Allergies/Adverse Reactions: Allergies No Known Allergies Allergy (Verified 02/26/18 16:15) Home Medications: Home Meds Medication Instructions Recorded Confirmed Clopidogrel [Plavix] 75 mg PO DAILY 09/23/12 02/26/18 Donepezil HCl [Aricept] 10 mg PO DAILY 09/10/14 02/26/18 Simvastatin 80 mg PO HS 09/12/14 02/26/18 Esomeprazole Magnesium [Nexium] 40 mg PO DAILY 02/13/16 02/26/18 Furosemide [Lasix] 40 mg PO DAILY PRN 02/13/16 02/26/18 Gabapentin [Neurontin] 300 mg PO BID 02/13/16 02/26/18 Levothyroxine [Synthroid] 100 mcg PO DAILY 02/13/16 02/26/18 Metoprolol Tartrate 50 mg PO DAILY 02/13/16 02/26/18 Losartan [Cozaar] 100 mg PO DAILY 11/26/16 02/26/18 Potassium Chloride [Klor-Con 10] 10 meq PO DAILY 11/27/16 02/26/18 Review of Systems - Review of Systems Constitutional: Normal. absent: Fatigue, Weight Change, Fevers Eyes: Normal ENT: Normal. absent: Sore Throat, Rhinorrhea, Sinus Congestion Respiratory: Normal. absent: SOB, Cough Cardiovascular: Normal. absent: Chest Pain, Palpitations, Edema, Calf Pain, TENA , Orthopnea, Syncope Gastrointestinal: Normal. absent: Abdominal Pain, Nausea, Vomiting Genitourinary Female: Frequency. absent: Dysuria, Hematuria, Urine Output Changes, Vaginal Bleeding, Vaginal Discharge Musculoskeletal: Normal. absent: Back Pain, Neck Pain, Joint Swelling, Myalgias Skin: Normal. absent: Rash Neurological: Headache. absent: Dizziness, Focal Weakness, Gait Changes, Speech Changes, Facial Droop, Disequilibrium, Seizure Endocrine: Normal Hemo/Lymphatic: Normal Psychiatric: Normal. absent: Anxiety, Depression, Suicidal Ideation Physical Exam Vital Signs Temp Pulse Resp BP Pulse Ox 02/26/18 18:57 60 19 150/34 L 95 02/26/18 16:50 153/45 H 02/26/18 16:43 66 19 146/102 H 98 02/26/18 16:18 98.3 F 64 17 201/101 H 97 Temperature: Afebrile Blood Pressure: Normal Pulse: Regular Respiratory Rate: Normal Appearance: Positive for: Well-Appearing, Non-Toxic, Comfortable Pain Distress: None Mental Status: Positive for: Alert and Oriented X 3 - Systems Exam Head: Present: Atraumatic, Normocephalic Pupils: Present: PERRL Extroacular Muscles: Present: EOMI Conjunctiva: Present: Normal Mouth: Present: Moist Mucous Membranes Neck: Present: Normal Range of Motion Respiratory/Chest: Present: Clear to Auscultation, Good Air Exchange. No: Respiratory Distress, Accessory Muscle Use Cardiovascular: Present: Regular Rate and Rhythm, Normal S1, S2. No: Murmurs Abdomen: No: Tenderness, Distention, Peritoneal Signs Back: Present: Normal Inspection Upper Extremity: Present: Normal Inspection. No: Cyanosis, Edema Lower Extremity: Present: Normal Inspection. No: Edema Neurological: Present: GCS=15, CN II-XII Intact, Speech Normal, Motor Func Grossly Intact, Normal Sensory Function, Normal Cerebellar Funct, Gait Normal, Memory Normal Skin: Present: Warm, Dry, Normal Color. No: Rashes Psychiatric: Present: Alert, Oriented x 3, Normal Insight, Normal Concentration Medical Decision Making ED Course and Treatment: 02/26/18 19:03 Re-evaluation. Patient feels better. Discussed results and plan with patient who expresses understanding. All questions answered and there is agreement with the plan to discharge home with instructions. Patient stable for discharge. Return if symptoms persist or worsen. Re-evaluation Time: 19:03 Reassessment Condition: Re-examined, Improved - Lab Interpretations Lab Results: Lab Results 02/26/18 17:30: Urine Color Yellow, Urine Appearance Sl cloudy, Urine pH 6.5, Ur Specific [place] 1.010, Urine Protein Negative, Urine Glucose (UA) Negative, Urine Ketones Negative, Urine Blood Moderate H, Urine Nitrate Negative, Urine Bilirubin Negative, Urine Urobilinogen 0.2, Ur Leukocyte Esterase Negative, Urine RBC 5 - 10, Urine WBC 2 - 5, Ur Epithelial Cells 3 - 4, Urine Bacteria Few I have reviewed the lab results: Yes Interpretation: Abnormal lab values - Medication Orders Current Medication Orders: Discontinued Medications Diphenhydramine HCl (Benadryl) 25 mg IVP STAT STA Stop: 02/26/18 16:49 Last Admin: 02/26/18 17:52 Dose: 25 mg IVP Administration Document 02/26/18 17:52 GMI (Rec: 02/26/18 17:53 GMI [id number]) Charges for Administration # of IVP Administrations 1 Sodium Chloride (Sodium Chloride 0.9%) 1,000 mls @ 999 mls/hr IV .Q1H1M STA Stop: 02/26/18 17:49 Last Admin: 02/26/18 17:51 Dose: 999 mls/hr eMAR Start Stop Document 02/26/18 17:51 GMI (Rec: 02/26/18 17:52 GMI [id number]) Intravenous Solution Start Date 02/26/18 Start Time 17:52 End Date 02/26/18 End time 18:55 Total Infusion Time 63 Metoclopramide HCl (Reglan) 10 mg IVP STAT STA Stop: 02/26/18 16:49 Last Admin: 02/26/18 17:52 Dose: 10 mg IVP Administration Document 02/26/18 17:52 GMI (Rec: 02/26/18 17:52 GMI [id number]) Charges for Administration # of IVP Administrations 1 Disposition/Present on Arrival - Present on Arrival Any Indicators Present on Arrival: No History of DVT/PE: No History of Uncontrolled Diabetes: No Urinary Catheter: No History of Decub. Ulcer: No History Surgical Site Infection Following: None - Disposition Have Diagnosis and Disposition been Completed?: Yes Diagnosis: Headache Disposition: HOME/ ROUTINE Disposition Time: 19:05 Patient Plan: Discharge Patient Problems: Current Active Problems Problem Status Onset Headache Acute Condition: GOOD Discharge Instructions (ExitCare): Headache, Adult (DC) Additional Instructions: Call private doctor for follow up visit in 1-2 days. Take medication as instructed. Return to emergency if symptoms worsen. Prescriptions: Acetaminophen/Butalbital/Caf [Fioricet] 1 tab PO Q4H PRN #12 tab PRN Reason: Headache Metoclopramide HCl [Reglan] 10 mg PO DAILY PRN #5 tablet PRN Reason: Headache Referrals: Janell Bell MD [Family Provider] - Follow up with primary Forms: [employer] (Serbian)
[2018-02-26 16:44] VITALS: RESP 19
[2018-02-26] MEDS ORDERED: DiphenhydrAMINE 50 mg/ml Inj IVP STA (16:48)
[2018-02-26] MEDS ORDERED: Sodium Chloride 0.9% 1,000 ML IV STA (16:49)
[2018-02-26 18:34] LABS: PH,URINE 6.5 (4.7-8.0); URINE BILIRUBIN NEGATIVE (NEGATIVE); URINE BLOOD MODERATE (NEGATIVE); URINE GLUCOSE (UA) NEGATIVE (NEGATIVE); URINE LEUKOCYTE ESTERASE NEGATIVE Leu/uL (NEGATIVE); URINE PROTEIN NEGATIVE mg/dL (<30 mg/dL); URINE UROBILINOGEN 0.2 E.U./dL (<1 E.U./dL)
[2018-02-26 18:38] LABS: URINE APPEARANCE SL CLOUDY (CLEAR); URINE COLOR YELLOW (YELLOW)
[2018-02-26 18:45] LABS: URINE BACTERIA FEW (NEG)
[2018-02-26 19:14] VITALS: BP 134/53; PULSE 59; TEMP 98; O2SAT 99
== END 2018-02-26 19:14 | disposition home or self-care (01) ==
LOC: ED 16:13
DX: R51 Headache (principal); Z87.891 Personal history of nicotine dependence
CPT/HCPCS: 81001; 87086; 87181; 96361; 96374; 96375; 99285; J1200; J2765; J7030

== ENCOUNTER 2018-03-06 13:21 | Inpatient (IN) | payer OTHER ==
[2018-03-06] MEDS ORDERED: Metoprolol 1 mg/ml Inj IVP STA (13:50)
[2018-03-06] MEDS ORDERED: DiphenhydrAMINE 50 mg/ml Inj IVP STA (13:51)
--- NOTE | 2018-03-06 14:04 | ED PDOC ---
Arrival/HPI - General Historian: Patient, Family - History of Present Illness Time/Duration: 1-3 hours Symptom Onset: Sudden Symptom Course: Unchanged Quality: Stabbing, Throbbing Severity Level: 10 Activities at Onset: Rest Context: Home <Lemuel Sena - Last Filed: 03/06/18 14:05> <Jacqueline Olmstead - Last Filed: 03/06/18 15:59> - General Chief Complaint: Chest Pain Time Seen by Provider: 03/06/18 13:24 - History of Present Illness Narrative History of Present Illness (Text): 03/06/18 13:53 62 year-old female with PMH CVA, brain aneurysm (10 years ago), vasculitis, and HTN presents to the ED complaining of headache and chest pain. Patient states that the headache was the first complaint to develop at approximately 12:40 PM today. After the headache, began she began feeling chest pain. The headache is described as an intense pressure over her entire head. Patient was here yesterday for the same complaint. Patient was here for similar KUHN on 02/25/18 and Reglan helped at that time. Patient is currently seeing Dr. Rothman for management of these headaches. He prescribed methylprednisone, which she finished today. After the headache began today, she took two naproxen which provided her no relief. Patient states she felt nauseous before the headache came on but denied any other aura-like symptoms. Patient also states that she has had chest pain and SOB since the headache started at 12:40. She states that the chest pain feels like it is related to her KUHN. She describes it as a pressure like sensation greatest in the mid- sternal region. Patient also admits to dizziness with the KUHN. Patient denied fevers/chills, blurry vision, or numbness/tingling in her extremities. (Lemuel Sena) Past Medical History - Provider Review Nursing Documentation Reviewed: Yes - Infectious Disease Hx of Infectious Diseases: None - Tetanus Immunization Tetanus Immunization: Unknown - Cardiac Hx Cardiac Disorders: Yes Hx Hypertension: Yes - Pulmonary Hx Respiratory Disorders: Yes Hx Bronchitis: Yes Hx Pneumonia: Yes - Neurological Hx Neurological Disorder: Yes Hx Dizziness: Yes Hx Seizures: Yes Hx Transient Ischemic Attacks (TIA): Yes Other/Comment: BRAIN ANEURSYM - HEENT Hx HEENT Disorder: No - Renal Hx Renal Disorder: Yes Hx Kidney Stones: Yes - Endocrine/Metabolic Hx Endocrine Disorders: Yes Hx Hypothyroidism: Yes - Hematological/Oncological Hx Blood Disorders: No - Integumentary Hx Dermatological Disorder: No - Musculoskeletal/Rheumatological Hx Musculoskeletal Disorders: Yes Hx Arthritis: Yes - Gastrointestinal Hx Gastrointestinal Disorders: Yes Hx Diverticulitis: Yes Hx Gall Bladder Disease: Yes - Genitourinary/Gynecological Hx Genitourinary Disorders: Yes Hx Hematuria: Yes Hx Incontinence: Yes Hx Urinary Tract Infection: Yes - Psychiatric Hx Psychophysiologic Disorder: Yes Hx Anxiety: Yes Hx Depression: Yes Hx Substance Use: No - Surgical History Hx Cholecystectomy: Yes Other/Comment: brain annureysm 10 years ago - Anesthesia Hx Anesthesia Reactions: No Hx Malignant Hyperthermia: No - Suicidal Assessment Feels Threatened In Home Enviroment: No <Lemuel Sena - Last Filed: 03/06/18 14:05> Family/Social History Family/Social History: Hypertension (mother), CAD/ID (father) Smoking Status: Former Smoker Hx Alcohol Use: No Hx Substance Use: No Hx Substance Use Treatment: No <Lemuel Sena - Last Filed: 03/06/18 14:05> Allergies/Home Meds <Lemuel Sena - Last Filed: 03/06/18 14:05> <Jacqueline Olmstead - Last Filed: 03/06/18 15:59> Allergies/Adverse Reactions: Allergies No Known Allergies Allergy (Verified 02/26/18 16:15) Home Medications: Home Meds Medication Instructions Recorded Confirmed Clopidogrel [Plavix] 75 mg PO DAILY 09/23/12 03/06/18 Donepezil HCl [Aricept] 10 mg PO DAILY 09/10/14 03/06/18 Simvastatin 80 mg PO HS 09/12/14 03/06/18 Esomeprazole Magnesium [Nexium] 40 mg PO DAILY 02/13/16 03/06/18 Gabapentin [Neurontin] 300 mg PO BID 02/13/16 03/06/18 Levothyroxine [Synthroid] 100 mcg PO DAILY 02/13/16 03/06/18 Metoprolol Tartrate 50 mg PO DAILY 02/13/16 03/06/18 Losartan [Cozaar] 100 mg PO DAILY 11/26/16 03/06/18 Escitalopram [Lexapro] 10 mg PO DAILY 03/06/18 03/06/18 Review of Systems - Review of Systems Constitutional: absent: Fatigue, Fevers Eyes: absent: Vision Changes, Photophobia ENT: absent: Hearing Changes, Sore Throat Respiratory: SOB. absent: Cough Cardiovascular: Chest Pain Gastrointestinal: Nausea. absent: Vomiting Genitourinary Female: absent: Dysuria, Frequency Musculoskeletal: absent: Arthralgias Skin: absent: Rash, Pruritis Neurological: Headache, Dizziness. absent: Speech Changes, Facial Droop Endocrine: absent: Diaphoresis Hemo/Lymphatic: absent: Adenopathy Psychiatric: absent: Anxiety, Depression <Lemuel Sena - Last Filed: 03/06/18 14:05> Physical Exam Vital Signs Reviewed: Yes Temperature: Afebrile Blood Pressure: Hypertensive Pulse: Regular Respiratory Rate: Normal Appearance: Positive for: Ill-Appearing, Uncomfortable Mental Status: Positive for: Alert and Oriented X 3 - Systems Exam Head: Present: Atraumatic Pupils: Present: PERRL Extroacular Muscles: Present: EOMI Conjunctiva: Present: Normal Mouth: Present: Moist Mucous Membranes Pharnyx: Present: Normal. No: ERYTHEMA, EXUDATE Nose (External): Present: Atraumatic Neck: Present: Normal Range of Motion. No: JVD Respiratory/Chest: Present: Clear to Auscultation. No: Wheezes, Rales, Rhonchi Cardiovascular: Present: Regular Rate and Rhythm, Normal S1, S2. No: Murmurs, Rub, Gallop Abdomen: No: Tenderness, Rebound, Guarding Back: Present: Normal Inspection Upper Extremity: Present: Normal Inspection. No: Cyanosis, Edema Lower Extremity: Present: Normal Inspection. No: Edema Neurological: Present: CN II-XII Intact, Speech Normal, Motor Func Grossly Intact, Normal Sensory Function, Normal 2Pt Descrimination Skin: Present: Warm, Dry Psychiatric: Present: Alert, Oriented x 3 <Lemuel Sena - Last Filed: 03/06/18 14:05> Vital Signs Temp Pulse Pulse Resp BP Pulse Ox 03/06/18 15:20 52 L 18 174/87 H 100 03/06/18 14:43 68 18 206/129 H 94 L 03/06/18 14:12 70 211/64 H 03/06/18 14:08 61 18 211/94 H 94 L 03/06/18 13:30 67 03/06/18 13:26 98.3 F 56 L 18 216/118 H 96 Medical Decision Making <Lemuel Sena - Last Filed: 03/06/18 14:05> <Jacqueline Olmstead - Last Filed: 03/06/18 15:59> ED Course and Treatment: 03/06/18 14:13 62 year old female presenting to the Emergency Department with chest pain. Patient Seen With Resident: In agreement with resident note. Patient was seen and evaluated with resident, came up with plan and treatment together. Patient is presenting with headache and chest pain. Stress test negative in 2014 but has multiple risk factors. 03/06/18 15:30 EKG shows NSR at 61bpm with LVH. No acute ST changes. Upon reassessment, patient reports headache has improved and chest pain resolved. Repeat blood pressure after medication: 174/[address] Bell who is aware and agrees with Emergency department management plan to admit patient to telemetry for further observation with Dr. Teran, wood chopper, and Dr. Chew, neurologist. 03/06/18 15:35 Dictator: Guanaco García MD Procedure: CHEST RADIOGRAPH, 1 View Impression: No active disease. Dictator: Guanaco García MD Procedure: CT HEAD WITHOUT CONTRAST Impression: No acute findings. Trop x 1 negative. 03/06/18 15:58 (Jacqueline Olmstead) - Lab Interpretations Lab Results: 03/06/18 13:49 03/06/18 13:49 Lab Results 03/06/18 13:49: PT 11.0, INR 0.97, APTT 21.6 L 03/06/18 13:49: Sodium 139, Potassium 4.4, Chloride 102, Carbon Dioxide 28, Anion Gap 13, BUN 20, Creatinine 0.7, Est GFR ( Amer) > 60, Est GFR (Non- Af Amer) > 60, Random Glucose 99, Calcium 9.5, Total Bilirubin 0.5, AST 26, ALT 37, Alkaline Phosphatase 133 H, Lactate Dehydrogenase 587, Total Creatine Kinase 63, Troponin I < 0.01 D, Total Protein 7.6, Albumin 4.3, Globulin 3.3, Albumin/Globulin Ratio 1.3 03/06/18 13:49: WBC 12.5 H D, RBC 4.82, Hgb 14.3, Hct 42.8, MCV 88.8, MCH 29.7, MCHC 33.4, RDW 13.4, Plt Count 236, MPV 10.4, Gran % 78.2 H, Lymph % (Auto) 14.7 L, [place] % (Auto) 6.3 H, Eos % (Auto) 0.6 L, Baso % (Auto) 0.2, Gran # 9.74 H, Lymph # (Auto) 1.8, [place] # (Auto) 0.8 H, Eos # (Auto) 0.1, Baso # (Auto) 0.02 - RAD Interpretation Radiology Orders: 03/06/18 13:46 HEAD W/O CONTRAST [CT] Stat 03/06/18 13:50 CHEST ONE VIEW [RAD] Stat - Medication Orders Current Medication Orders: Discontinued Medications Acetaminophen (Tylenol 325mg Tab) 975 mg PO STAT STA Stop: 03/06/18 13:52 Last Admin: 03/06/18 14:42 Dose: 975 mg MAR Pain/Vitals Document 03/06/18 14:42 [email or web address] (Rec: 03/06/18 14:42 [email or web address] [id number]) Pain Reassessment Is This A Pain ReAssessment? No Sleep Is patient sleeping during reassessment? No Presence of Pain Presence of Pain Yes Pain Scale Used Pain Scale Used Numeric Location Pain Location Body Mixing Pan Tender Description Constant Intensity 10 Scale Used Numeric Pain Behavior Facial Grimacing Aggravating Factors Changing Position Alleviating Factors Medication Aspirin (Aspirin Chewable) 324 mg PO STAT STA Stop: 03/06/18 15:28 Diphenhydramine HCl (Benadryl) 50 mg IVP STAT STA Stop: 03/06/18 13:52 Last Admin: 03/06/18 14:42 Dose: 50 mg IVP Administration Document 03/06/18 14:42 [email or web address] (Rec: 03/06/18 14:42 [email or web address] [id number]) Charges for Administration # of IVP Administrations 1 Metoclopramide HCl (Reglan) 10 mg IVP STAT STA Stop: 03/06/18 13:52 Last Admin: 03/06/18 14:42 Dose: 10 mg IVP Administration Document 03/06/18 14:42 [email or web address] (Rec: 03/06/18 14:42 [email or web address] [id number]) Charges for Administration # of IVP Administrations 1 Metoprolol Tartrate (Lopressor) 10 mg IVP STAT STA Stop: 03/06/18 13:51 Last Admin: 03/06/18 14:12 Dose: 10 mg IVP Administration Document 03/06/18 14:12 [facility] (Rec: 03/06/18 14:41 [facility] [id number]) Charges for Administration # of IVP Administrations 1 MAR Pulse and Blood Pressure Document 03/06/18 14:12 [facility] (Rec: 03/06/18 14:41 [facility] [id number]) Pulse Pulse Rate (60-90) 70 Blood Pressure Blood Pressure (100/60-150/90) 211/64 <Lemuel Sena - Last Filed: 03/06/18 14:05> - PA / OENOLOGIST / Resident Statement MD/DO has reviewed & agrees with the documentation as recorded. MD/DO has examined the patient and agrees with the treatment plan. - Scribe Statement The provider has reviewed the documentation as recorded by the Scribe <Jacqueline Olmstead - Last Filed: 03/06/18 15:59> - Scribe Statement Paulette Waller All medical record entries made by the Scribe were at my direction and personally dictated by me. I have reviewed the chart and agree that the record accurately reflects my personal performance of the history, physical exam, medical decision making, and the department course for this patient. I have also personally directed, reviewed, and agree with the discharge instructions and disposition. (Jacqueline Olmstead) Disposition/Present on Arrival - Present on Arrival History of DVT/PE: No History of Uncontrolled Diabetes: No Urinary Catheter: No History Surgical Site Infection Following: None <Lemuel Sena - Last Filed: 03/06/18 14:05> - Present on Arrival Any Indicators Present on Arrival: No - Disposition Have Diagnosis and Disposition been Completed?: Yes Disposition Time: 15:29 Patient Plan: Observation <Jacqueline Olmstead - Last Filed: 03/06/18 15:59> - Disposition Diagnosis: Headache, Chest pain Disposition: HOSPITALIZED Patient Problems: Current Active Problems Problem Status Onset Chest pain Acute Headache Acute Condition: FAIR
[2018-03-06 14:20] LABS: BASO # 0.02 K/mm3 (0.0-2.0); BASO % 0.2 % (0.0-3.0); EOS # 0.1 (0.0-0.7); EOS % 0.6 % (1.5-5.0); GRAN # 9.74 (1.4-6.5); GRAN % 78.2 % (50.0-68.0); HEMOGLOBIN 14.3 g/dL (12.0-16.0); LYMPH # 1.8 (1.2-3.4); LYMPH % 14.7 % (22.0-35.0); MEAN CELL VOLUME 88.8 fl (80.0-105.0); MEAN CORPUSCULAR HEMOGLOBIN 29.7 pg (25.0-35.0); MEAN CORPUSCULAR HGB CONC 33.4 g/dl (31.0-37.0); MEAN PLATELET VOLUME 10.4 fl (7.0-11.0); MONO # 0.8 (0.1-0.6); MONO % 6.3 % (1.0-6.0); RBC 4.82 10^6/uL (3.5-6.1); RED CELL DISTRIBUTION WIDTH 13.4 % (11.5-14.5); WHITE BLOOD COUNT 12.5 10^3/ul (4.5-11.0)
[2018-03-06 14:27] LABS: ALB/GLOB RATIO 1.3 (1.1-1.8); ALBUMIN 4.3 g/dL (3.0-4.8); ALT/SGPT 37 U/L (7-56); AST/SGOT 26 U/L (14-36); BLOOD UREA NITROGEN 20 mg/dL (7-21); CALCIUM 9.5 mg/dL (8.4-10.5); GFR AFRICAN-AMERICAN > 60; GFR NON-AFRICAN AMERICAN > 60
[2018-03-06 14:36] LABS: INR 0.97; PARTIAL THROMBOPLASTIN TIME 21.6 Seconds (25.1-36.5)
[2018-03-06 14:40] LABS: TROPONIN I < 0.01 ng/mL
--- NOTE | 2018-03-06 15:13 | CT ---
Date of service: 03/06/2018 PROCEDURE: CT HEAD WITHOUT CONTRAST. HISTORY: headache worsening COMPARISON: 12/14/2016 TECHNIQUE: Axial computed tomography images were obtained through the head/brain without intravenous contrast. Radiation dose: Total exam DLP = 1013 mGy-cm. This CT exam was performed using one or more of the following dose reduction techniques: Automated exposure control, adjustment of the mA and/or kV according to patient size, and/or use of iterative reconstruction technique. FINDINGS: HEMORRHAGE: No intracranial hemorrhage. BRAIN: No mass effect or edema. No atrophy or chronic microvascular ischemic changes. VENTRICLES: Unremarkable. No hydrocephalus. CALVARIUM: Unremarkable. PARANASAL SINUSES: Unremarkable as visualized. No significant inflammatory changes. MASTOID AIR CELLS: Unremarkable as visualized. No inflammatory changes. OTHER FINDINGS: None. IMPRESSION: No acute findings
--- NOTE | 2018-03-06 15:21 | RAD ---
Date of service: 03/06/2018 PROCEDURE: CHEST RADIOGRAPH, 1 VIEW HISTORY: chest pain COMPARISON: 08/09/2017 FINDINGS: LUNGS: Clear. PLEURA: No pneumothorax or pleural fluid seen. CARDIOVASCULAR: Normal. OSSEOUS STRUCTURES: No significant abnormalities. VISUALIZED UPPER ABDOMEN: Normal. OTHER FINDINGS: None. IMPRESSION: No active disease.
--- NOTE | 2018-03-06 17:26 | CARD ---
APPROVED REPORT Date of service: 03/06/2018 EKG Measurement Heart [id number] <Conclusion> Normal sinus rhythm Possible Left atrial enlargement Left ventricular hypertrophy with repolarization abnormality Abnormal ECG
[2018-03-06 20:04] VITALS: BMI 43.2
[2018-03-06] MEDS: HYDROmorphone 0.5 mg/0.5 ml ISec IVP PRN (20:22)
[2018-03-07] MEDS: Pantoprazole 40 mg EC Tab PO SCH (05:13)
[2018-03-07 06:33] LABS: HEMOGLOBIN 13.6 g/dL (12.0-16.0); MEAN CORPUSCULAR HEMOGLOBIN 29.6 pg (25.0-35.0); MEAN CORPUSCULAR HGB CONC 32.9 g/dl (31.0-37.0); MEAN PLATELET VOLUME 10.3 fl (7.0-11.0); RBC 4.59 10^6/uL (3.5-6.1); RED CELL DISTRIBUTION WIDTH 13.6 % (11.5-14.5); WHITE BLOOD COUNT 11.2 10^3/ul (4.5-11.0)
[2018-03-07 06:47] LABS: BLOOD UREA NITROGEN 22 mg/dL (7-21); CALCIUM 9.3 mg/dL (8.4-10.5); GFR AFRICAN-AMERICAN > 60; GFR NON-AFRICAN AMERICAN > 60; HDL CHOLESTEROL 60 mg/dL (29-60); IRON 46 ug/dL (45-180)
[2018-03-07 06:57] LABS: % IRON SATURATION 13 % (20-55); TOTAL IRON BINDING CAPACITY 348 ug/dL (265-497)
[2018-03-07 06:58] LABS: LDL CHOLESTEROL 64 mg/dL (0-129); TROPONIN I < 0.01 ng/mL
[2018-03-07] MEDS: Levothyroxine 100 MCG TAB PO SCH ×2 (09:18→13:22)
--- NOTE | 2018-03-07 09:38 | HP ---
03/06/18 Copied To: Janell Bell MD Attending MD: Janell Bell MD CHIEF COMPLAINT: Neck pain, headache, chest pain. HISTORY OF PRESENT ILLNESS: Ms. Louise Andrew is a 62-year-old female with past medical history of CVA, brain aneurysm 10 years ago, vasculitis, hypertension, came to the emergency department, complaining of headache, neck pain, chest pain. Patient states that the headache was the first complaint to develop approximately 12 p.m. After that, headaches started beginning and she was started feeling chest pain also. Headache is described as an intense pressure over her entire head. Patient was here yesterday for the same complaints. Patient was here for Reglan and it was given that helped the patient. Patient's neurologist, Dr. Rothman. For headache, he prescribed methylprednisolone, which she finished today, but the headache began today. Again, she took 2 naproxen, which provided her no relief. Patient states that she felt nauseous before the headache came out, but denied any other aura-like symptoms and complaining about shortness of breath also. Chest pain feels like the origin of her headache. It is like pressure sensation , in the mediastinal region. Patient has also dizziness. No fever or chills. Patient is admitted. I saw the patient in the telemetry. PAST MEDICAL HISTORY: Hypertension, bronchitis, pneumonia, dizziness, seizures, TIA, history of brain aneurysm, renal disorder, recurrent kidney stones, hypothyroidism, arthritis, depression. FAMILY HISTORY: Father and mother, noncontributory. HABITS: Former smoker. Now, no smoking. No drug. No ethanol. ALLERGIES: PATIENT IS NOT ALLERGIC WITH ANY MEDICATION. HOME MEDICATIONS: Plavix, Aricept, simvastatin, Nexium, Neurontin, Synthroid, metoprolol, Cozaar, Lexapro. REVIEW OF SYSTEMS: Patient is seen and examined on the bedside in the telemetry. Feeling fatigued and tired. No vision changes. No hearing changes. No sore throat. Complaining of shortness of breath and chest pain. Feeling nauseous, but no vomiting this moment. No dysuria. No rash. Complaining about headache and dizziness. No speech changes or facial droop. No diaphoresis. No adenopathy, anxiety, or depression. PHYSICAL EXAMINATION: VITAL SIGNS: Temperature 98.3; pulse 56; respiratory rate 18; blood pressure 216/118, 174/87. HEENT: Head: Normocephalic, atraumatic. Eyes: PERRLA. Extraocular muscles intact. Conjunctivae clear. Nose patent. Mucous membrane moist. NECK: Supple. No carotid bruit, JVD, or thyromegaly. CHEST: Bilaterally symmetrical. HEART: S1 and S2 positive. LUNGS: Clear to auscultation. ABDOMEN: Soft. Bowel sounds present. No organomegaly. EXTREMITIES: No edema. No cyanosis. NEUROLOGIC: Patient is awake and alert. Moving all 4 extremities. No focal deficit. LABORATORY DATA: White blood cells 12.5, hemoglobin 14.3, hematocrit 42.8, platelets 236. Sodium 139, potassium 4.4, BUN 20, creatinine 0.7, glucose 99. ASSESSMENT AND PLAN: Ms. Louise Andrew is a 62-year-old female with leukocytosis, accelerated hypertension, rule out migraine, chest pain, acute shortness of breath. Patient has a history of brain aneurysm, history of bronchitis, pneumonia, chronic obstructive pulmonary disease, history of dizziness, seizures, transient ischemic attack, brain aneurysm, kidney stones, hypothyroidism, arthritis, diverticulitis, hematuria, urinary incontinence, urinary tract infection, anxiety, depression. We admitted the patient, started pain medication. Patient has dementia, using Aricept, aspirin, Benadryl, Cozaar. Started hydromorphone, Lexapro, metoprolol, gabapentin, Plavix, dose of Reglan given in emergency room, levothyroxine, acetaminophen. Actually failed outpatient treatment. Patient was seen one week ago by Dr. Rothman, was given Medrol Dosepak, headache got better, but restarted. Patient came in emergency room yesterday, sent home, then came back today again with intractable headache and shortness of breath. We admitted the patient. Called Neurology and Cardiology consult. We will follow up. Janell Bell MD MTDYesenia
[2018-03-07] MEDS: HYDROmorphone 0.5 mg/0.5 ml ISec IVP PRN (11:14)
--- NOTE | 2018-03-07 12:06 | CON ---
Copied To: Shelton Hunter MD Attending MD: Shelton Hunter MD DATE: 03/07/2018 REASON FOR THE CONSULTATION: Neck pain, headache, chest pain, cardiac evaluation. BRIEF CLINICAL HISTORY: This is 62-year-old morbidly obese female with past medical history of CVA, brain aneurysm 10 years ago, vasculitis, hypertension, history of cervical disk disease, severe headache that is being followed by Dr. Rothman, the patient has a neck pain and then, went into severe headache and felt very sick, was sent to daughter's home and went home. Yesterday, the same episode happened, headache reappeared, and then, the patient developed shortness of breath and mild chest pain at the epigastric region, so came to the Emergency Room. Denies any prior episode of chest pain or dyspnea on exertion. PAST MEDICAL HISTORY: Significant for hypertension, bronchitis, pneumonia, dizziness, seizure disorder, TIA, brain aneurysm and history of CVA and history of recurrent headache and history of cervical disk disease, being followed by Dr. Rothman (neurologist). Past history is significant for arthritis, depression, hypothyroidism, recurrent kidney stones. PAST SURGICAL HISTORY: Significant for left carotid artery endarterectomy 10 to [address] Rizo in [facility], history of gallbladder 26 years ago. FAMILY HISTORY: Father and mother, noncontributory. SOCIAL HISTORY: Denies history of smoking. Denies any history of alcohol abuse. ALLERGIES: NO KNOWN DRUG ALLERGY. CURRENT MEDICATIONS: The patient is taking at home Lexapro, Lamictal, simvastatin, metoprolol, losartan, Cozaar, levothyroxine, Nexium, Aricept, Plavix, Neurontin. REVIEW OF SYSTEMS: As per HPI. PHYSICAL EXAMINATION: As follows; GENERAL: Height of the patient is 5 feet 7 inches, weight of the patient is 274 pounds, body mass index 43 kg/m2. Rest of the vitals, temperature afebrile, heart rate 82, blood pressure 133/70. HEENT: PERRLA. Extraocular muscles intact. NECK: Supple. No carotid bruits or thyromegaly. CHEST: Clear to auscultation. HEART: S1 and S2, regular. ABDOMEN: Soft. EXTREMITIES: Clubbing and cyanosis negative. LABORATORY DATA: Blood workup as follows, WBC 11.8, hemoglobin 13.7, hematocrit 41.3 platelet count 232. Chemistry shows sodium 140, potassium 3.9, chloride 101, carbon dioxide 30, anion gap of 14, BUN 22, creatinine 0.8. Troponin 0.01 x2 negative. EKG shows normal sinus rhythm, no acute ST-T changes noted. IMPRESSION: Atypical chest pain, very tender at epigastric area and lower extremities are tender, but given the multiple risk factor of coronary artery disease including obesity, hypertension and depression, suggest echo and a stress test. We will get the lipid profile, TSH as well as hemoglobin A1c. Discussed with the patient. Patient agreed. We will proceed for the stress test. We will keep n.p.o. So far, troponins are negative. No evidence of acute TX. Thank you Dr. Bell for providing us the opportunity in taking care of the patient. Shelton Hunter MD
[2018-03-07 13:34] LABS: FOLATE 17.3 ng/mL
--- NOTE | 2018-03-07 16:55 | CON ---
Copied To: Shelton Hannah MD Attending MD: Shelton Hannah MD DATE: 03/07/2018 PULMONARY CONSULT REFERRING PHYSICIAN: Janell Bell MD. REASON FOR CONSULT: Recurrent headaches, suspected sleep apnea syndrome. HISTORY OF PRESENT ILLNESS: This is a 62-year-old female, known to me from the office, last seen a few years ago, that time I recommended sleep study, but did not follow up. She has a history of hypertension; chronic lung disease; seizure disorder; history of brain aneurysm with the stroke many years ago; cervical radiculopathy; depression; hypothyroid; history of renal stone, which is recurrent; did not follow up for sleep study as outpatient. Comes in with recurrent very severe pain. She was seen by Neurology as outpatient, thought it was a cervical radiculopathy, started on steroids without much effect, finally admitted through ER. History of episodic headache. According to her, she had seizures where she becomes more forgetful and confused. Denying any recent trauma. There is some maxillary area tenderness. No nausea. No vomiting. Admits to have snoring, daytime sleepy and tired. PAST MEDICAL HISTORY: As per history of present illness. ALLERGIES: NONE KNOWN. SOCIAL HISTORY: Nonsmoker, nondrinker. FAMILY HISTORY: No significant cardiopulmonary disease reported. MEDICATIONS: She is on Aricept 10 mg daily, Cozaar 100 mg daily, Dilaudid 0.5 mg every 6 hours p.r.n., Lamictal 25 mg twice a day, Lexapro 10 mg daily, Lipitor 40 mg daily, metoprolol tartrate 25 mg daily, Neurontin 300 mg twice a day, Norvasc 10 mg daily, Plavix 75 mg daily, Protonix 40 mg daily, Synthroid 100 mcg daily. REVIEW OF SYSTEMS: Episodic headache. No rhinitis. No cough. No sputum production. Admits to have snoring, daytime sleepy and tired. No chest pain, abdominal pain. No dysuria. No leg pain or leg swelling. PHYSICAL EXAMINATION: GENERAL: In no acute distress. VITAL SIGNS: Temperature is 98, heart rate is 82, respiratory rate is 18, blood pressure 170/80, pulse ox 99% on nasal cannula. HEENT: Moist mucous membrane. Crowded airway. Mallampati score is 4. NECK: Supple. No JVD. Maxillary area tenderness. No neck tenderness. No shoulder tenderness. LUNGS: Have a fair airflow. HEART: S1 and S2. ABDOMEN: Soft, nontender. No organomegaly. EXTREMITIES: No edema. NEUROLOGICAL: Awake and alert. Follows simple command. LABORATORY DATA: Shows hemoglobin 13.6, hematocrit 41.3, WBC 11.2, platelet is 232. INR is 0.97, PTT is 22. Sodium 142, potassium 3.9, chloride 101, bicarbonate 30, BUN 22, creatinine 0.8, hemoglobin A1c 6, calcium is 9.3, iron is 46, AST 26, ALT 37, alk phos is 133, LDH 495, total creatine kinase 69. Troponin is negative. Cholesterol is 153. TSH 358. Has a CAT scan of the head done on admission, noted no acute finding. Unremarkable visualized sinuses. IMPRESSION AND PLAN: History of cranial aneurysm with stroke in the remote past, history of seizure disorder, recurrent transient ischemic attacks, history of cervical radiculopathy, hypertension, chronic lung disease, may have sleep apnea syndrome, depression, hypothyroid, history of recurrent renal stone. Case discussed with the patient in detail. All the questions answered. Cardiac and neurology workup in progress. I think she need a spot EEG. If negative, may need a video EEG in 24-48 hours. I highly suspect it could be seizure activity. Also there is a component of probably sleep apnea syndrome. We will recommend sleep study upon discharge as outpatient. She has sinus area tenderness, but CT of the head does not show any sinusitis. I will suggest placing her on doxycycline a few days, also Singulair 10 mg daily. Outpatient, she should have attended sleep study. Fall precaution. Gastric prophylaxis, DVT prophylaxis. Thank you and we will follow with you. Shelton Hannah MD
[2018-03-07] MEDS ORDERED: Dexamethasone 4 MG in Sodium Chloride 0.9% 50 ML IV ONE (17:01)
--- NOTE | 2018-03-07 17:36 | CON ---
Copied To: Fidel Rothman MD Attending MD: Fidel Rothman MD DATE: 03/07/2018 NEUROLOGY CONSULT CHIEF COMPLAINT: Headache. 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 Her MRI of the head was unremarkable in the past. MRI of the cervical spine showed multilevel degenerative changes and focal disk protrusion on the right at C7-T1. Her last MRI of the brain shows focal encephalomalacia in the right parietal and right frontal lobe area suggestive of previous infarct, mild cognitive impairment, neck pain radiating up to the back of the head causing diffuse pressure headaches, therefore I was called to evaluate. Currently, headaches are slightly much better. She is on gabapentin 300 mg p.o. b.i.d. for headache prevention as well as paresthesias. Currently, her headaches are slightly better. We will give her a dose of dexamethasone x1 dose to reduce the acute onset of headache and we will get an MRI of the brain and MRI of the head. No new focal neurological symptoms. CAT scan of the head showed no acute intracranial abnormality. Old encephalomalacia infarcts bilaterally. ALLERGIES: NO KNOWN DRUG ALLERGIES. PAST MEDICAL HISTORY: As above. SOCIAL HISTORY: No illicit drug use, smoking or EtOH abuse. REVIEW OF SYSTEMS: Fourteen-point review of systems is negative except as per the HPI. LABORATORY DATA: Sodium is 142, potassium 3.9, chloride 101, carbon dioxide 30, BUN of 22, creatinine 0.8, random glucose of 99 and A1c of 6. PHYSICAL EXAMINATION: VITAL SIGNS: Temperature of 98.5, pulse rate of 82, blood pressure 161/86, respiratory rate of 18, oxygen saturation 99% by room air. GENERAL: The patient is sitting up in bed, in no acute distress. HEENT: Atraumatic, normocephalic. PERRLA. Extraocular muscles intact. NECK: Supple. No JVD, no adenopathy noted. LUNGS: Clear to auscultation. No adventitious sounds. HEART: S1, S2. Normal rate and rhythm. No murmurs, rubs or gallops. ABDOMEN: Soft, nontender and nondistended. Bowel sounds are present. EXTREMITIES: No clubbing. No cyanosis. Peripheral pulses 2+ felt bilaterally. MUSCULOSKELETAL: No cervical muscle pain. NEUROLOGIC: The patient is alert and oriented to person, place, month and year. Recall after 5 minutes is 0/3. Poor attention span. Slow thought process. Speech is fluent without any errors. Cranial nerves II through XII intact. Motor exam: Moves all extremities equally except for a mild left-sided residual weakness from prior CVA. Reduced finger tap on the left side when compared to the right from prior CVA. DTRs are 2+ throughout and 1 at both knees and absent at the ankles. Coordination: [id number] intact. No dysmetria noted. Gait is deferred for now. ASSESSMENT AND PLAN: This is a 62-year-old woman with history of hypertension, dyslipidemia, history of questionable brain aneurysm in the past, hypothyroidism, degenerative joint disease with chronic low back pain and neck pain, history of right middle cerebral artery territory infarct with residual mild left-sided weakness, who came with diffuse pressure headache along with neck tightness. There was found to have elevated systolic blood pressures. Her acute severe headache was likely secondary to hypertensive urgency, superimposed underlying cervicalgia causing diffuse pressure headaches. At this time, we will recommend, 1. An MRI and MRA of the head to see if any acute intracranial abnormalities. 2. Keep systolic blood pressures between 130s-140s systolic and diastolic 70-80s. 3. Salt restriction advised in diet. 4. Plavix and Lipitor for stroke prevention. 5. Continue gabapentin 300 mg p.o. b.i.d. and continue with current present medical management. Thank you for this consult. Fidel Rothman MD
--- NOTE | 2018-03-07 21:33 | CARD ---
APPROVED REPORT Date of service: 03/07/2018 Protocol: LEXISCAN Test Type: Lexiscan Sestamibi Stress Test Attending Physician: Dr. Shelton Hunter Referring Physician: Dr. Janell Bell Test Indications: Chest Pain Height:5 ft 7 in Weight:270lbs Medications: Norvasc,Lipitor,Plavix, Aricept, Lexapro,Neruontin, Dilaudid, Synthroid,Cozaar,Lopressor,Protonix Medical History: 62 y/o female. Hx of chest pain,shortness of breath, hypertension,high cholesterol,stroke, brain aneurysm, dizziness. Target HR: 157 bpm Resting ECG: normal Resting Heart Rate: 65 bpm Resting Blood Pressure: 180/100mmHg Submaximum (85%): 133 bpm PROCEDURE Pharmacologic stress testing was performed using 0.4mg per 5ml of regadenoson given intravenously over 7-10 seconds. Reversal agent aminophyline 100 mg, given intravenously for Headache. POST EXERCISE Reason for Termination: Protocol completed Target HR: No Max HR: 57 bpm 68% of Maximum Predicted HR: 157 bpm Exercise duration: 00:31 min:sec, 0 Stage Exercise capacity: 1.0METs Max Blood Pressure: 194/80mmHg Blood Pressure response to exercise: normal resting BP - appropriate response Heart Rate response to exercise: appropriate Chest Pain: No, none Angina index: 0 Arrhythmia: No, none ST Change: No, none Deviation: 0 mm INTERPRETATION Stress EKG Conclusion: Negative IV Lexiscan for ischemia and for chest pain, Nuclear scan to follow. Signed by Shelton Hunter Electronically Approved: 03/07/2018 11:30:45 EXAM: Myocardial Perfusion REST/STRESS Stress Test Type: Pharmacologic Imaging Protocol Rest Spect myocardial perfusion imaging was performed in supine position 50 minutes following the injection of 10.9 mCi of Tc-99 Myoview. At peak stress, the patient was injected intravenously with 30.5mCi of Tc-99 tetrofosmin after an infusion time of 0 minutes and 10 seconds. Gated Stress Spect was performed 65 minutes after intravenous Tc-99 Myoview injection. The images were gated to evaluate regional wall motion and calculate ventricular ejection fraction.Images were reconstructed using backfilter projection method in short horizontal and verticle long axis. Spect slices were generated. LV Perfusion The quality of the study is good. The left ventricle is within normal limits in size with thickened myocardium. The right ventricle is unremarkable. The lung uptake is within normal limits. The distribution of tracer reveals mildly heterogeneous uptake without discrete perfusion defect on the stress study. The rest myocardial perfusion study shows no significant change. Wall Motion Wall motion study shows good contractility of the left ventricle. LVEF = 77%. Conclusion 1. Normal SPECT myocardial perfusion study. 2. Heterogeneous activities are most likely due to soft tissue attenuation. 3. Normal gated wall motion of the left ventricle. 4. In comparison with the last study of 01/30/2015, there is no significant change.
[2018-03-07] MEDS: Amoxicillin-Clav 875-125 mg Tab PO SCH (22:30)
[2018-03-08] MEDS: Pantoprazole 40 mg EC Tab PO SCH (05:33)
--- NOTE | 2018-03-08 07:37 | CP.PCM.PN ---
Subjective - Date & Time of Evaluation Date of Evaluation: 03/08/18 Time of Evaluation: 06:35 - Subjective Subjective: Easily awake, no distress, denies chest pain Reason for consultation and follow up: Cardiac evaluation of chest pain,headache ,neck pain. History of CVA,brain aneurysm 10 years ago, vasculitis, hypertension,morbidly obese, history of cervical disk disease, Seen and examined by me and Dr. Hunter Objective - Vital Signs/Intake and Output Vital Signs (last 24 hours): Temp Pulse Resp BP Pulse Ox 98.1 F 67 20 167/58 H 96 03/08/18 06:00 03/08/18 06:00 03/08/18 06:00 03/08/18 06:50 03/08/18 06:00 Intake and Output: 03/08/18 03/08/18 06:59 18:59 Intake Total 360 Balance 360 - Medications Medications: Current Medications Amlodipine Besylate (Norvasc) 10 mg PO DAILY COUNT INCLUDES THE [facility] Amoxicillin/Clavulanate Potassium (Augmentin 875 Mg-125 Mg Tab) 1 tab PO Q12 COUNT INCLUDES THE [facility] PRN Reason: Protocol Last Admin: 03/07/18 22:30 Dose: 1 tab Atorvastatin Calcium (Lipitor) 40 mg PO HS COUNT INCLUDES THE [facility] Last Admin: 03/07/18 22:30 Dose: 40 mg Clopidogrel Bisulfate (Plavix) 75 mg PO DAILY COUNT INCLUDES THE [facility] Last Admin: 03/07/18 13:22 Dose: 75 mg Donepezil HCl (Aricept) 10 mg PO DAILY COUNT INCLUDES THE [facility] Last Admin: 03/07/18 13:21 Dose: 10 mg Escitalopram Oxalate (Lexapro) 10 mg PO DAILY COUNT INCLUDES THE [facility] Last Admin: 03/07/18 13:22 Dose: 10 mg Gabapentin (Neurontin) 300 mg PO BID COUNT INCLUDES THE [facility] PRN Reason: Protocol Last Admin: 03/07/18 17:46 Dose: 300 mg Hydralazine HCl (Apresoline) 10 mg PO Q6 PRN PRN Reason: SBP > 160 Last Admin: 03/08/18 06:50 Dose: 10 mg Hydralazine HCl (Apresoline) 25 mg PO BID COUNT INCLUDES THE [facility] Hydromorphone HCl (Dilaudid) 0.5 mg IVP Q6H PRN PRN Reason: Pain, moderate (4-7) Last Admin: 03/07/18 11:14 Dose: 0.5 mg Lamotrigine (Lamictal) 25 mg PO BID COUNT INCLUDES THE [facility] PRN Reason: Protocol Last Admin: 03/07/18 17:46 Dose: 25 mg Levothyroxine Sodium (Synthroid) 100 mcg PO DAILY COUNT INCLUDES THE [facility] Last Admin: 03/07/18 13:22 Dose: 100 mcg Losartan Potassium (Cozaar) 100 mg PO DAILY COUNT INCLUDES THE [facility] Last Admin: 03/07/18 13:22 Dose: 100 mg Metoprolol Tartrate (Lopressor) 25 mg PO DAILY COUNT INCLUDES THE [facility] Last Admin: 03/07/18 09:17 Dose: Not Given Pantoprazole Sodium (Protonix Ec Tab) 40 mg PO 0600 COUNT INCLUDES THE [facility] Last Admin: 03/08/18 05:33 Dose: 40 mg - Labs Labs: PT 11.0 SECONDS (9.4-12.5) 03/06/18 13:49 INR 0.97 03/06/18 13:49 APTT 21.6 Seconds (25.1-36.5) L 03/06/18 13:49 - Constitutional Appears: No Acute Distress - Eye Exam Eye Exam: Normal appearance - ENT Exam ENT Exam: Mucous Membranes Moist - Respiratory Exam Respiratory Exam: Decreased Breath Sounds, Clear to Ausculation Bilateral, NORMAL BREATHING PATTERN - Cardiovascular Exam Cardiovascular Exam: +S1, +S2 - GI/Abdominal Exam GI & Abdominal Exam: Soft, Normal Bowel Sounds - Extremities Exam Extremities Exam: Normal Capillary Refill - Neurological Exam Neurological Exam: Alert, Awake, Oriented x3 - Psychiatric Exam Psychiatric exam: Normal Affect - Skin Skin Exam: Intact, Warm Assessment and Plan - Assessment and Plan (Free Text) Assessment: A 62 year old female who came in to the ER due to headache,neck pain then chest pain. History of CVA,brain aneurysm 10 years ago, vasculitis, hypertension, morbidly obese, history of cervical disk disease, severe heradache and being followed up by Dr. Rothman. history of arhtritis,seizure disorder, carotid endarterectomy 12 years ago.Atypical chest pain. Stress test normal. troponin normal. Uncontrolled hypertension. Plan: Stress test normal Troponin normal EKG normal sinus rhytym,no ischemia No evidence of ischemia Discontinue telemetry Uncontrolled blood pressure Added Hydralazine 25 mg BID and Hydralazine 10 mg IV PRN Neuro on consult Continue current treatment Continue current medications Will follow up Plan and treatment discussed with Dr. Hunter
--- NOTE | 2018-03-08 08:17 | PN ---
Copied To: Janell Bell MD Attending MD: Janell Bell MD DATE: 03/07/2018 SUBJECTIVE: The patient is a 62-year-old female. Patient was seen and examined in the stress lab, was feeling dizzy and headache, even nurse from the floor has to come to give her IV Dilaudid and having cup of coffee, also maybe due to lack of caffeine, she was having headache. No chest pain. No fever. No chills. No nausea, vomiting or diarrhea. PHYSICAL EXAMINATION: VITAL SIGNS: Temperature 98.5, pulse 82, blood pressure 160/86, respiratory rate 18, oxygen saturation 99% on room air. HEENT: Head: Normocephalic, atraumatic. Eyes: PERRLA. Extraocular muscles intact. Conjunctivae clear. Nose patent. Mucous membrane moist. NECK: Supple. No carotid bruit. No JVD. No thyromegaly. CHEST: Bilaterally symmetrical. HEART: S1 and S2 positive. LUNGS: Clear to auscultation. ABDOMEN: Soft. Bowel sounds present. No organomegaly. EXTREMITIES: No edema. No cyanosis. NEUROLOGICAL: The patient is awake and alert. Moving all 4 extremities. No focal deficits. MEDICATIONS: Hydralazine, Aricept, Augmentin, Cozaar, Dilaudid, Lamictal, Lexapro, Lipitor, Lopressor, Neurontin, Norvasc, Plavix, Protonix, Synthroid. LABORATORY DATA: White blood cell 11.2, hemoglobin 13.6, hematocrit 41.3, platelets 232. Sodium 142, potassium 3.9, BUN 22, creatinine 0.8, glucose 99, hemoglobin A1c 6. ASSESSMENT AND PLAN: Angelito a 62-year-old lady with leukocytosis, iron deficiency, came with chest pain, stress test is done, CAT scan of the head is done, reviewed by me, history of hypertension, dyslipidemia, questionable brain aneurysm in the past as well, patient is status post surgery, hypothyroidism, degenerative joint disease, chronic low back pain and neck pain, history of right middle cerebral artery territory infarction with residual mild left-sided weakness, came with headache along with neck tightness and chest pain, found to have systolic blood pressure high, had acute severe headache, was likely secondary to hypertension, urgency as per Cardiology, superimposed underlying cervicalgia causing diffuse pressure headache. Neurology ordered MRI and MRA of the head to see if any acute intracranial abnormalities. Salt restriction. Advised Plavix and Lipitor. Continue gabapentin. Today during stress test, patient had severe intractable headache. So nurse, Rocio, from second floor had to come downstairs in the stress test lab for intravenous pain medication. History of seizures, history of recurrent transient ischemic attacks, chronic obstructive lung disease, sleep apnea syndrome, depression. Facility Rehab Director, neurologist and hem inspector is on the case. May the patient need electroencephalogram to rule out sinusitis. Started antibiotics. Gastrointestinal and deep venous thrombosis prophylaxes. Repeat labs. We will follow up. Janell Bell MD MTDYesenia
[2018-03-08] MEDS: HYDROmorphone 0.5 mg/0.5 ml ISec IVP PRN ×2 (08:43→23:59)
--- NOTE | 2018-03-08 08:54 | CARD ---
APPROVED REPORT Date of service: 03/07/2018 EXAM: Two-dimensional and M-mode echocardiogram with Doppler and color Doppler. INDICATION Chest Pain LVFX 2D DIMENSIONS Left Atrium (2D)4.7 (1.6-4.0cm)IVSd1.5 (0.7-1.1cm) LVDd4.3 (3.9-5.9cm)PWd1.5 (0.7-1.1cm) LVDs2.8 (2.5-4.0cm)FS (%) 34.9 % LVEF (%)64.3 (>50%) M-Mode DIMENSIONS Aortic Root3.20 (2.2-3.7cm)Aortic Cusp Exc.1.90 (1.5-2.0cm) Aortic Valve AoV Peak Qanknfsr798.0cm/sAoV VTI47.4cmAO Peak GR.23mmHg LVOT Peak Dxuqivmn386.0cm/sLVOT VTI33.20cmAO Mean GR.11mmHg Mitral Valve MV E Ytdmekdn58.6cm/sMV A Rdtmwehw768.0cm/sE/A ratio0.6 TDI Lateral E' Peak V6.43cm/sE/Lateral E'13.0E/Medial E'0.0 Pulmonary Valve PV Peak Ffzweqhx953.0cm/sPV Peak Grad.7mmHg Tricuspid Valve TR Peak Rsrfqisj608jl/sRAP NJEWTOXJ01vpFzKS Peak Gr.33mmHg ARJX41jsDr LEFT VENTRICLE The left ventricle is normal size. There is mild to moderate concentric left ventricular hypertrophy. The left ventricular function is normal.EF-60-65% There is normal LV segmental wall motion. Transmitral Doppler flow pattern is Grade III-reversible restrictive diastolic dysfunction. No left ventricle thrombus noted on this study. There is no ventricular septal defect visualized. There is no left ventricular aneurysm. There is no mass noted in the left ventricle. RIGHT VENTRICLE The right ventricle is normal size. There is normal right ventricular wall thickness. The right ventricular systolic function is normal. ATRIA The left atrium is mildly dilated. The right atrium size is normal. The interatrial septum is intact with no evidence for an atrial septal defect. AORTIC VALVE The aortic valve is moderately thickened. The aortic valve is mildly sclerotic. There is trace aortic regurgitation. There is no aortic valvular stenosis. There is no aortic valvular vegetation. MITRAL VALVE The mitral valve is thickened but opens well. There is systolic anterior motion of the chordal apparatus. Mitral regurgitation is trace. There is no mitral valve stenosis. There is no evidence of mitral valve prolapse. TRICUSPID VALVE The tricuspid valve leaflets are thickened , but open well. There is mild tricuspid regurgitation.RVSP43 mmof Hg There is no tricuspid valve stenosis. There is no tricuspid valve prolapse or vegetation. PULMONIC VALVE The pulmonary valve is normal in structure. There is trace pulmonic valvular regurgitation. There is no pulmonic valvular stenosis. GREAT VESSELS The aortic root is normal in size. The ascending aorta is normal in size. The pulmonary artery is normal. The IVC is normal in size and collapses >50% with inspiration. PERICARDIAL EFFUSION There is no pleural effusion. There is no pericardial effusion. <Conclusion> The left ventricle is normal size. There is mild to moderate concentric left ventricular hypertrophy. The left ventricular function is normal.EF-60-65% There is trace aortic regurgitation. There is no aortic valvular stenosis. Mitral regurgitation is trace. There is mild tricuspid regurgitation.RVSP43 mmof Hg The mitral valve is thickened but opens well. There is systolic anterior motion of the chordal apparatus. The IVC is normal in size and collapses >50% with inspiration. There is no pericardial effusion.
[2018-03-08] MEDS: Amoxicillin-Clav 875-125 mg Tab PO SCH ×2 (09:51→21:22)
[2018-03-08] MEDS: Levothyroxine 100 MCG TAB PO SCH (09:51)
--- NOTE | 2018-03-08 13:39 | CP.PCM.PCO ---
Physician Communication Note - Physician Communication Note Physician Communication Note: headaches r more aggravsated bc of htn. control bp , c/w gabapentn.
--- NOTE | 2018-03-08 15:36 | MRI ---
Date of service: 03/08/2018 PROCEDURE: MRI BRAIN WITHOUT CONTRAST HISTORY: headache COMPARISON: None available. TECHNIQUE: Multiplanar, multisequence MR images of the brain were obtained without intravenous contrast enhancement. FINDINGS: HEMORRHAGE: None DWI: No evidence of an acute or early subacute infarction. BRAIN PARENCHYMA: No mass effect or edema. There is a small focal area of encephalomalacia in the medial aspect of the right parietal lobe. VENTRICLES: Unremarkable. No hydrocephalus. CRANIUM: Unremarkable. ORBITS: Grossly unremarkable. PARANASAL SINUSES/MASTOIDS: Clear VASCULAR SYSTEM: Skull base flow voids intact. OTHER FINDINGS: None. IMPRESSION: No acute intracranial findings
--- NOTE | 2018-03-08 15:41 | MRI ---
Date of service: 03/08/2018 PROCEDURE: Magnetic Resonance Angiography Brain HISTORY: headache COMPARISON: None available. TECHNIQUE: 3D time of flight MR angiography of the intracranial arteries was performed. Rotating maximum intensity projection images were generated. FINDINGS: INTERNAL CAROTID ARTERIES: Unremarkable. The skull base, petrous, cavernous and supraclinoid segments are bilaterally widely patient. ANTERIOR CEREBRAL ARTERIES: Unremarkable. A1 and A2 segments are widely patent. Smaller distal branches unremarkable, as visualized. MIDDLE CEREBRAL ARTERIES: There are several small foci of stenosis in the distal middle cerebral arteries bilaterally. These could be atherosclerotic in origin or related to vasculitis. The proximal branches are unremarkable POSTERIOR CIRCULATION: Basilar Artery: Unremarkable. Distal Vertebral Arteries: Unremarkable. Posterior Cerebral Arteries: Unremarkable. Posterior Inferior Cerebellar Arteries: Unremarkable. ANEURYSM/ VASCULAR MALFORMATIONS: None. OTHER FINDINGS: None. IMPRESSION: There are several small foci of stenosis in the distal middle cerebral arteries bilaterally. These could be atherosclerotic in origin or related to vasculitis. The proximal branches are unremarkable
--- NOTE | 2018-03-08 17:37 | PN ---
Copied To: Shelton Hannah MD Attending MD: Shelton Hannah MD DATE: 03/08/2018 PULMONARY PROGRESS NOTE REFERRING PHYSICIAN: Janell Bell MD. SUBJECTIVE: She is lying in the bed, sleepy, arousable, just got Xanax for possible MRI and MRA. I am waiting to go down. Son is at bedside. Nursing staff is at bedside. Had two episodes of headache last night. No nausea, no vomiting, no diarrhea. No leg pain or leg swelling. OBJECTIVE: GENERAL: In no acute distress. VITAL SIGNS: Temperature is 98, heart rate is 58, respiratory rate is 20, blood pressure 142/66, pulse ox 97% on room air. HEENT: Moist mucous membranes. Crowded airway. Mallampati score is 4. NECK: Supple. No JVD. LUNGS: Have a fair airflow with rhonchi. HEART: S1 and S2. ABDOMEN: Soft and nontender. No organomegaly. EXTREMITIES: No edema. NEUROLOGICAL: Sleepy, arousable. Follows simple command. MEDICATIONS: She is on hydralazine 10 mg every 6 hours p.r.n., Aricept 10 mg daily, Augmentin 875 one tab twice a day, Cozaar 100 mg daily, Dilaudid 0.5 mg every 6 hours p.r.n., Lamictal 25 mg twice a day, Lexapro 10 mg daily, Lipitor 40 mg daily, metoprolol tartrate 25 mg daily, gabapentin 300 mg twice a day, Norvasc 10 mg daily, Plavix 75 mg daily, Protonix 40 mg daily, Synthroid 100 mcg daily. LABORATORY DATA: Reviewed. No new lab is available since yesterday. IMPRESSION AND PLAN: History of pain, aneurysm, stroke, seizure, recurrent transient headache, cervical radiculopathy, chronic lung disease, may have sleep apnea syndrome, depression, hypothyroid, recurrent renal stone. Awaiting to get MRI and MRA today. Family is at bedside. All the question answered. According to Neurology maybe headache history given by uncontrolled hypertension. The patient also has suspected sleep apnea syndrome. We will suggest getting sleep study upon discharge as outpatient. ABG was ordered to assure the normal CO2, which is not done, so we will order again. Fall precaution. Thank you and we will follow with you. Shelton Hannah MD [facility] # [id number]
--- NOTE | 2018-03-08 18:19 | PN ---
Copied To: Fidel Rothman MD Attending MD: Fidel Rothman MD DATE: 03/08/2018 NEUROLOGY FOLLOWUP CHIEF COMPLAINT: Followup for headaches. SUBJECTIVE: Headache is much better. Her blood pressure is much better controlled today than before. Her headaches were more of hypertensive induced. MRI of the brain showed no acute intracranial abnormality. MRA of the head shows no evidence of any aneurysm atherosclerotic disease vasculitis, which is reviewed by me. ALLERGIES: NO KNOWN DRUG ALLERGIES. 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 REVIEW OF SYSTEMS: A 14-point review of systems is negative except as per the HPI. FAMILY HISTORY: Noncontributory. LABORATORY DATA: Sodium is 142, potassium 3.9, chloride 101, carbon dioxide 30, BUN of 22, creatinine 0.8, random glucose 99. PHYSICAL EXAMINATION: VITAL SIGNS: Temperature 98.7, pulse rate of 58, blood pressure 142/66, respiratory rate of 20. GENERAL: The patient is sitting up in bed, in no acute distress. HEENT: Head is atraumatic, normocephalic. PERRLA. Extraocular muscles intact. NECK: Supple. No JVD. No adenopathy noted. LUNGS: Clear to auscultation. No adventitious sounds. HEART: S1 and S2. Normal rate and rhythm. No murmurs, rubs or gallops. ABDOMEN: Soft, nontender and nondistended. Bowel sounds are present. EXTREMITIES: No clubbing, no cyanosis. Peripheral pulses 2+ felt bilaterally. NEUROLOGIC: The patient is alert and oriented to person, place, month and year. Speech is fluent without any errors. Cranial nerves II through XII are intact. Motor exam: Moves all extremities equally, except for some mild residual left-sided weakness from prior CVA. Reduced finger tap on the left when compared to the right. DTRs are 2+ throughout and 1 at both knees and absent at the ankles. Coordination: Uoqloe-ns-lyxu intact, no dysmetria noted. Gait is deferred for now. IMPRESSION: Headache is more of hypertensive induced headache, superimposed on cervicogenic headaches. MRI of the brain showed no acute intracranial abnormality. MRA of the head showed no evidence of any aneurysms, atherosclerotic disease in the distal middle cerebral arteries. RECOMMENDATIONS: 1. To keep systolic blood pressure between 130s to 140s systolic and diastolic 70s to 80s. 2. Plavix and Lipitor for stroke prevention. 3. Continue gabapentin 300 mg p.o. b.i.d. for neuropathic salt restriction in diet. Patient is clinically stable. We will follow up as an outpatient. Fidel Rothman MD
[2018-03-09] MEDS: Pantoprazole 40 mg EC Tab PO SCH (05:44)
--- NOTE | 2018-03-09 06:40 | CP.PCM.PN ---
Subjective - Date & Time of Evaluation Date of Evaluation: 03/09/18 Time of Evaluation: 06:10 - Subjective Subjective: no distress, denies chest pain,easily awaken Reason for consultation and follow up: Cardiac evaluation of chest pain,headache ,neck pain. History of CVA,brain aneurysm 10 years ago, vasculitis, hypertension,morbidly obese, history of cervical disk disease, Seen and examined by me and Dr. Hunter Objective - Vital Signs/Intake and Output Vital Signs (last 24 hours): Temp Pulse Resp BP Pulse Ox 97.9 F 55 L 18 123/49 L 92 L 03/08/18 22:00 03/08/18 22:00 03/08/18 22:00 03/08/18 22:00 03/08/18 22:00 Intake and Output: 03/08/18 03/09/18 18:59 06:59 Intake Total 660 360 Balance 660 360 - Medications Medications: Current Medications Amlodipine Besylate (Norvasc) 10 mg PO DAILY [facility] Last Admin: 03/08/18 09:51 Dose: 10 mg Amoxicillin/Clavulanate Potassium (Augmentin 875 Mg-125 Mg Tab) 1 tab PO Q12 [facility] PRN Reason: Protocol Last Admin: 03/08/18 21:22 Dose: 1 tab Atorvastatin Calcium (Lipitor) 40 mg PO HS [facility] Last Admin: 03/08/18 21:22 Dose: 40 mg Clopidogrel Bisulfate (Plavix) 75 mg PO DAILY [facility] Last Admin: 03/08/18 09:51 Dose: 75 mg Donepezil HCl (Aricept) 10 mg PO DAILY [facility] Last Admin: 03/08/18 09:51 Dose: 10 mg Escitalopram Oxalate (Lexapro) 10 mg PO DAILY [facility] Last Admin: 03/08/18 09:51 Dose: 10 mg Gabapentin (Neurontin) 300 mg PO BID [facility] PRN Reason: Protocol Last Admin: 03/08/18 17:08 Dose: 300 mg Hydralazine HCl (Apresoline) 10 mg PO Q6 PRN PRN Reason: SBP > 160 Last Admin: 03/08/18 06:50 Dose: 10 mg Hydromorphone HCl (Dilaudid) 0.5 mg IVP Q6H PRN PRN Reason: Pain, moderate (4-7) Last Admin: 03/08/18 23:59 Dose: 0.5 mg Lamotrigine (Lamictal) 25 mg PO BID [facility] PRN Reason: Protocol Last Admin: 03/08/18 17:08 Dose: 25 mg Levothyroxine Sodium (Synthroid) 100 mcg PO DAILY [facility] Last Admin: 03/08/18 09:51 Dose: 100 mcg Losartan Potassium (Cozaar) 100 mg PO DAILY [facility] Last Admin: 03/08/18 09:51 Dose: 100 mg Metoprolol Tartrate (Lopressor) 25 mg PO DAILY [facility] Last Admin: 03/08/18 09:50 Dose: 25 mg Pantoprazole Sodium (Protonix Ec Tab) 40 mg PO 0600 [facility] Last Admin: 03/09/18 05:44 Dose: 40 mg - Labs Labs: PT 11.0 SECONDS (9.4-12.5) 03/06/18 13:49 INR 0.97 03/06/18 13:49 APTT 21.6 Seconds (25.1-36.5) L 03/06/18 13:49 - Constitutional Appears: No Acute Distress - Eye Exam Eye Exam: Normal appearance - ENT Exam ENT Exam: Mucous Membranes Moist - Respiratory Exam Respiratory Exam: Decreased Breath Sounds, Clear to Ausculation Bilateral, NORMAL BREATHING PATTERN - Cardiovascular Exam Cardiovascular Exam: +S1, +S2 - GI/Abdominal Exam GI & Abdominal Exam: Soft, Normal Bowel Sounds - Extremities Exam Extremities Exam: Normal Capillary Refill - Neurological Exam Neurological Exam: Alert, Awake, Oriented x3 - Psychiatric Exam Psychiatric exam: Normal Affect - Skin Skin Exam: Dry, Warm Assessment and Plan - Assessment and Plan (Free Text) Assessment: A 62 year old female who came in to the ER due to headache,neck pain then chest pain. History of CVA,brain aneurysm 10 years ago, vasculitis, hypertension, morbidly obese, history of cervical disk disease, severe heradache and being followed up by Dr. Rothman. history of arhtritis,seizure disorder, carotid endarterectomy 12 years ago.Atypical chest pain. Stress test normal. troponin normal. Uncontrolled hypertension.Stress test normal,Troponin normal,EKG normal sinus rhytym,no ischemia,No evidence of ischemia. Plan: Controlled blood pressure SBP 120's and 140's On Lipitor 40 mg daily,Cozaar 100 mg daily,Lopressor 25 mg daily Hydralazine 10 mg every 6 hours PRN, Norvasc 10 mg daily. Neuro on consult, work up in progress Continue current treatment Continue current medications Discharge planning Will follow up Plan and treatment discussed with Dr. Hunter
[2018-03-09 07:46] VITALS: RESP 20
--- NOTE | 2018-03-09 08:18 | PN ---
Copied To: Janell Bell MD Attending MD: Janell Bell MD DATE: 03/08/2018 SUBJECTIVE: The patient was seen and examined on the bedside, looks a little bit confused. Still having headache. Blood pressure is getting under control. Spoke to the patient's daughter. All questions answered. No fever. No chills. No hematuria. No hematochezia. PHYSICAL EXAMINATION: VITAL SIGNS: Temperature 98.7, pulse 58, respiratory rate 18, blood pressure 140/66. HEENT: Head normocephalic, atraumatic. Eyes PERRLA. Extraocular muscles intact. Conjunctivae clear. Nose patent. Mucous membrane moist. NECK: Supple. No carotid bruit. No JVD or thyromegaly. CHEST: Bilaterally symmetrical. HEART: S1 and S2 positive. LUNGS: Clear to auscultation. ABDOMEN: Soft. Bowel sounds positive. No organomegaly. EXTREMITIES: No edema. No cyanosis. No clubbing. NEUROLOGICAL: The patient is awake and alert. Cranial nerves grossly intact. Obeys simple orders. MEDICATIONS: Hydralazine, Aricept, Augmentin, Cozaar, Dilaudid, Lamictal, Lexapro, atorvastatin, Lopressor, Neurontin, Norvasc, Plavix, Protonix, Synthroid. LABORATORY DATA: White blood cells 11.2, hemoglobin 13.6, hematocrit 41.3, platelets 232. Sodium 142, potassium 3.9, BUN 22, creatinine 0.8, glucose 99, iron saturation 13. ASSESSMENT AND PLAN: Ms. Louise Andrew, 62-year-old lady with leukocytosis, came in with chest pain and intractable headache. History of degenerative disk disease, history of right middle cerebral artery infarct with mild residual left-sided weakness, history of seizure disorder with some old encephalomalacia in the right middle cerebral artery territory, history of chronic neck and low back pain. According to Dr. Rothman, headache is like hypertensive-induced headache superimposed on cervicogenic headache, rule out migraine. MRI of the brain shows no acute intracranial abnormalities. MRI of the head shows no evidence of aneurysm, atherosclerotic heart disease. According to Dr. Rothman keep the systolic blood pressure between 130-140 and diastolic 70-80. Plavix and Lipitor for stroke prevention. Continue gabapentin for neuropathic pains. Viewed head MRA and MRI. The patient has history of chronic obstructive pulmonary disease and asthma, chronic obstructive sleep apnea, depression, hypothyroidism, recurrent renal stones. Length of time discussion done with the patient's daughter and question answered. Dr. Hannah suggested sleep study as outpatient. ABG is reviewed by me. GI, DVT prophylaxis. Repeat labs. We will follow up. Janell Bell MD MTDD
[2018-03-09] MEDS: Levothyroxine 100 MCG TAB PO SCH (10:50)
[2018-03-09] MEDS: Amoxicillin-Clav 875-125 mg Tab PO SCH (11:56)
[2018-03-09 14:10] VITALS: BP 130/68; PULSE 56; TEMP 98.1; O2SAT 94
--- NOTE | 2018-03-09 15:27 | MRI ---
Date of service: 03/09/2018 PROCEDURE: MR Angiography of the neck without contrast HISTORY: pain COMPARISON: None available. TECHNIQUE: 3D [id number] angiography of the neck was performed. Rotating maximum intensity projection images of the cervical carotid and vertebral arteries were generated. The origins of the common carotid arteries were not visualized, which is a limitation inherent to the non-contrast time of flight technique. There was some motion artifact FINDINGS: RIGHT CAROTID ARTERIES: Common Carotid Artery: There is a mild to moderate stenosis of the distal right common carotid artery. This is best appreciated on source image 34 series 5 Carotid Bifurcation: Normal. Internal Carotid Artery:Normal. External Carotid Artery (proximal branches): Normal. LEFT CAROTID ARTERIES: Common Carotid Artery: Normal. Carotid Bifurcation: Mild stenosis Internal Carotid Artery:Normal. External Carotid Artery (proximal branches): Normal. VERTEBRAL ARTERIES: Right Vertebral Artery: Normal Left Vertebral Artery: Dominant OTHER FINDINGS: None. IMPRESSION: Mild to moderate stenosis of the right distal common carotid artery. Mild atherosclerotic irregularity and stenosis of the left carotid bifurcation
[2018-03-09] MEDS ORDERED: Apap-Butalbital-Caffeine 325-50-40mg Tab PO PRN (16:25)
--- NOTE | 2018-03-10 00:57 | PN ---
Copied To: Shelton Hannah MD Attending MD: Shelton Hannah MD DATE: 03/09/2018 PULMONARY PROGRESS NOTE REFERRING PHYSICIAN: Dr. Bell SUBJECTIVE: She is sitting side of the bed, feels much better. Dizzy spell is better. No headache, no rhinitis. No nausea, vomiting, or diarrhea. No leg pain or leg swelling. OBJECTIVE: GENERAL: In no acute distress. VITAL SIGNS: Temperature is 98, heart rate 56, respiratory rate is 20, blood pressure 130/68, pulse of 94% on room air. HEENT: Moist mucous membranes. Crowded airway. NECK: Supple. No JVD. LUNGS: Have fair airflow with few rhonchi. HEART: S1 and S2. ABDOMEN: Soft, nontender. No organomegaly. EXTREMITIES: No edema. NEUROLOGIC: Awake and alert, follows simple command. MEDICATIONS: Reviewed. No new changes in medication reported since yesterday. LABORATORY DATA: Reviewed and shows no new lab is available since yesterday. She had MRA of neck done which was unremarkable, also had an MRA of the head and MRI of the brain which is nondiagnostic. IMPRESSION AND PLAN: Recurrent headache, suspected sleep apnea syndrome, history of stroke, aneurysm, seizure disorder, cervical radiculopathy, chronic lung disease, hypothyroid, depression, recurrent renal stone. Spoke to the patient in detail. She is being discharged home. Need to do attended sleep study upon discharge as an outpatient that could be one of the triggering factor in her headache. Fall precaution. Neurology followup. Thank you and we will follow with you. Shelton Hannah MD
== END 2018-03-09 18:36 | disposition home or self-care (01) | DRG 305 ==
LOC: ED 13:21 → ERH 15:27 → 2RSO 18:09 → OBSVTOIN 03-07 20:29 → 5RNO 03-08 20:01
PROVIDERS: ADMIT Internal Medicine; ATTEND Internal Medicine
DX: I16.0 Hypertensive urgency (principal); Z68.41 Body mass index [BMI] 40.0-44.9, adult; M54.2 Cervicalgia; R07.89 Other chest pain; E66.9 Obesity, unspecified; D72.829 Elevated white blood cell count, unspecified; E03.9 Hypothyroidism, unspecified; E78.5 Hyperlipidemia, unspecified; F03.90 Unspecified dementia, unspecified severity, without behavioral disturbance, psychotic disturbance, mood disturbance, and anxiety; G40.909 Epilepsy, unspecified, not intractable, without status epilepticus; G47.33 Obstructive sleep apnea (adult) (pediatric); G93.89 Other specified disorders of brain; I10 Essential (primary) hypertension; J44.9 Chronic obstructive pulmonary disease, unspecified; Z79.02 Long term (current) use of antithrombotics/antiplatelets; Z79.899 Other long term (current) drug therapy; Z86.73 Personal history of transient ischemic attack (TIA), and cerebral infarction without residual deficits; Z87.01 Personal history of pneumonia (recurrent); Z87.440 Personal history of urinary (tract) infections; Z87.442 Personal history of urinary calculi; Z87.891 Personal history of nicotine dependence; Z90.49 Acquired absence of other specified parts of digestive tract